=== PATIENT | male | born 1935 | race Caucasian/White ===

== ENCOUNTER 2020-08-05 01:40 | Outpatient (CLI) | payer MEDICARE, SELFPAY ==
[2020-08-05 21:22] LABS: SARS-CoV-2 RNA PCR Negative
== END 2020-08-05 01:41 | disposition home or self-care (01) ==
LOC: ANHCOVIDDT 01:40
PROVIDERS: PCP Family Medicine; Visit Provider Internal Medicine Gastroenterology
DX: Z01.812 Encounter for preprocedural laboratory examination (principal); Z20.828 Contact with and (suspected) exposure to other viral communicable diseases
CPT/HCPCS: 87635; C9803; U0003

== ENCOUNTER 2020-08-08 00:22 | Day surgery (SDC) | payer MEDICARE, SELFPAY ==
[2020-08-01 12:58] VITALS: BMI 32.5
[2020-08-08 06:19] VITALS: BP 146/78; PULSE 96; RESP 18; TEMP 36.6; O2SAT 98
[2020-08-08] MEDS: LACTATED RINGERS 1,000 ML 150 ML IV CONT (06:31)
--- NOTE | 2020-08-08 07:07 | WPDANESEPPF ---
Anes - Initial Pre Proc Eval Procedure: Operation Date: 08/08/20 07:30 Proposed Procedures p Screening Colonoscopy - Domingo Boston MD Date/Time: 08/08/20 07:07 Surgeon: Domingo Boston MD Pre Op Diagnosis: Hx Colon Polyps Patient Data Age: 85 Gender: M Height: 6 ft Weight: 111.6 kg Last Vital Signs Temp 97.9 F 08/08/20 06:19 Pulse 96 08/08/20 06:19 Resp 18 08/08/20 06:19 BP 146/78 H 08/08/20 06:19 Pulse Ox 98 08/08/20 06:19 Allergies Allergy/AdvReac Type Severity Reaction Status Date / Time Contrast Media Allergy Mild ITCHING Uncoded 08/08/20 06:17 AND RASH Home Medications Medication Instructions Recorded Confirmed Type niacin 500 mg tablet 500 mg PO 4XW 10/26/19 08/01/20 History omega-3 fatty acids 1,000 mg 1,000 mg PO DAILY 10/26/19 08/01/20 History capsule atorvastatin 10 mg tablet 10 mg PO DAILY #90 tablet 05/31/20 08/01/20 Rx lisinopril 10 See Rx Instructions .ROUTE 07/30/20 08/01/20 Rx mg-hydrochlorothiazide 12.5 mg .COMPLEX #90 tablet tablet Patient hx anesthesia problems: none Family hx anesthesia problems: none PMFSH Past Medical History Medical History (Updated 08/08/20 @ 07:07 by Robin Carreon MD) Essential (primary) hypertension History of chicken pox History of mumps Hyperlipidemia, unspecified Surgical History Surgical History (Updated 08/08/20 @ 07:07 by Robin Carreon MD) H/O endovascular stent graft for abdominal aortic aneurysm History of heart artery stent (~2014) History of left hip replacement (~2008) Family History Family History (Updated 06/12/20 @ 14:58 by Vivien West [facility]) Mother , age 59 Hypertension, Onset Age: 59 Heart disease Congestive heart failure Father , age 41 Pancreatic cancer Daughter No chronic problems Other Carcinoma of colon Family history of hypercholesterolemia Social History Social History Smoking status: Never smoker Alcohol intake: never Substance use: never Substance use type: does not use Living arrangements: alone Spiritual care concerns: No Anes - Eval Final PreProcedure Day of Procedure 08/08/20 07:07 Patient weight: obese Heart: regular rate and rhythm Lungs: clear to auscultation Airway: Mallampati scale class II Neurological: alert and oriented Last oral intake: >/= 8 hours ASA classification: III Emergent: no Anesthetic plan: proceed Anesthesia type and monitoring: general GIVS and standard monitoring Informed Consent: The patient's anesthetic plan and its attendant risks and benefits were discussed with the patient/family/POA. Questions were solicited and answers provided to the satisfaction of the patient/family/POA.
--- NOTE | 2020-08-08 08:11 | P.CONGI_ITS ---
Assessment and Plan Assessment and plan (1) History of colon polyps: Code(s): Z86.010 - Personal history of colonic polyps Status: Acute Assessment and Plan: Patient has had colon polyps on previous colonoscopies. He presents today for surveillance colonoscopy. High-fiber diet is advised. GI Consult Note Consult date/time: 08/08/20 08:11 HPI: Tom Matute is a 85 year old maleSeen in evaluation at the request of Dr. Aleks Treviño. Patient has a history of colon polyps in the past. He presents today for follow-up colonoscopy. He states his current weight appetite bowel movements are normal. He denies abdominal pain. He has had no bleeding. Bowel habits are normal. Review of Systems Review of Systems: All systems reviewed & are unremarkable except as noted in HPI and below PMFSH Past Medical History Medical History (Updated 08/08/20 @ 08:13 by Domingo Boston MD) Essential (primary) hypertension History of chicken pox History of mumps Hyperlipidemia, unspecified Surgical History Surgical History (Updated 08/08/20 @ 07:07 by Robin Carreon MD) H/O endovascular stent graft for abdominal aortic aneurysm History of heart artery stent (~2014) History of left hip replacement (~2008) Family History Family History (Updated 06/12/20 @ 14:58 by Vivien West [facility]) Mother , age 59 Hypertension, Onset Age: 59 Heart disease Congestive heart failure Father , age 41 Pancreatic cancer Daughter No chronic problems Other Carcinoma of colon Family history of hypercholesterolemia Social History Social History Smoking status: Never smoker Alcohol intake: never Substance use: never Substance use type: does not use Living arrangements: alone Spiritual care concerns: No Meds Home Medications and Allergies Home Medications Medication Instructions Recorded Confirmed Type niacin 500 mg tablet 500 mg PO 4XW 10/26/19 08/01/20 History omega-3 fatty acids 1,000 mg 1,000 mg PO DAILY 10/26/19 08/01/20 History capsule atorvastatin 10 mg tablet 10 mg PO DAILY #90 tablet 05/31/20 08/01/20 Rx lisinopril 10 See Rx Instructions .ROUTE 07/30/20 08/01/20 Rx mg-hydrochlorothiazide 12.5 mg .COMPLEX #90 tablet tablet Allergies Allergy/AdvReac Type Severity Reaction Status Date / Time Contrast Media Allergy Mild ITCHING Uncoded 08/08/20 06:17 AND RASH Vital Signs Vital Signs - 24 hr 08/08/20 06:19 Temperature 97.9 F Pulse Rate 96 Respiratory Rate 18 Blood Pressure 146/78 H Pulse Oximetry 98 Exam Narrative: Exam Narrative: Physical exam reveals patient to be alert. Vital signs stable. HEENT exam unremarkable. Lungs are clear to auscultation and percussion. Heart is without murmur or extra sounds. Abdominal exam bowel sounds are present soft nontender with no organomegaly. Digital external rectal exam is normal.
[2020-08-08 08:14] VITALS: BP 101/34; PULSE 72; RESP 20; O2SAT 95
[2020-08-08 08:24] VITALS: BP 105/41; PULSE 79; RESP 20; O2SAT 99
[2020-08-08 08:34] VITALS: BP 105/67; PULSE 80; RESP 15; O2SAT 99
== END 2020-08-08 08:50 | disposition home or self-care (01) ==
PROVIDERS: PCP Family Medicine; Visit Provider Internal Medicine Gastroenterology
PROC: 0DJD8ZZ Inspection of Lower Intestinal Tract, Via Natural or Artificial Opening Endoscopic (ICD-10-PCS; CPT 45378; principal; 2020-08-08 07:30)
DX: Z12.11 Encounter for screening for malignant neoplasm of colon (principal); D12.3 Benign neoplasm of transverse colon; K57.30 Diverticulosis of large intestine without perforation or abscess without bleeding; K64.8 Other hemorrhoids; I10 Essential (primary) hypertension; E78.5 Hyperlipidemia, unspecified; Z95.5 Presence of coronary angioplasty implant and graft; E66.9 Obesity, unspecified; Z68.33 Body mass index [BMI] 33.0-33.9, adult
CPT/HCPCS: 45385; 88305; J2704; J7120

== ENCOUNTER 2020-12-24 10:22 | Outpatient (CLI) | payer MEDICARE, SELFPAY ==
--- NOTE | ~2020-12-24 | XR_ITS ---
EXAMINATION: XR lg joint inject/asp w image DATE: 12/24/2020 11:02 INDICATION: Right hip primary osteoarthritis. TECHNIQUE: A time-out was performed to verify the patient's name, date of , and procedure to b e performed. The procedure including the risks, benefits, and alternatives was discussed with the pat ient. Risks discussed included bleeding and infection. The patient understood the risks and agreed to proceed. The skin overlying the right hip joint was prepped and draped in usual sterile fashion. A nesthetic was administered with 1% lidocaine subcutaneously. A 22 G needle was advanced under fluoro scopic guidance into the joint. Injection of 2 mL of Omnipaque 240 confirmed intra-articular positio n of the needle. Subsequently, injectate consisting of 5 mL 1% lidocaine and 2 mL 10 mg/mL Kenalog w as instilled. The needle was removed and the entry site was cleaned and dressed. There were no imme diate complications. Fluoroscopy exposure time was 0.1 minutes. The total number of images was 2. FINDINGS: Real-time fluoroscopy demonstrates the needle in the right hip joint. Patient's pain prior to procedure:02/27. Patient's pain following the procedure: 10/30. IMPRESSION: 1. Fluoroscopy guided right hip joint injection of local anesthetic and steroid with decrease in the patient's presenting pain. Reviewed, dictated and finalized at location A.
== END 2020-12-24 10:23 | disposition home or self-care (01) ==
PROVIDERS: PCP Family Medicine; Visit Provider Orthopaedic Surgery
DX: M16.11 Unilateral primary osteoarthritis, right hip (principal)
CPT/HCPCS: 20610; 77002; J3301; Q9966

== ENCOUNTER 2021-10-31 14:32 | Inpatient (IN) | payer MEDICARE, SELFPAY ==
[2021-10-31] VITALS (13 sets, daily range): BP systolic 105–137; BP diastolic 45–80; PULSE 68–160; RESP 14–26; TEMP 36.1–36.9; O2SAT 95–100; BMI 31.8
--- NOTE | ~2021-10-31 | XR_ITS ---
EXAMINATION: XR chest 1V portable EXAM DATE: 10/31/2021 15:20 INDICATION: Dizziness, tachycardia, SOB. TECHNIQUE: Portable AP frontal chest x-ray was obtained. Comparison is made to prior examination from 03/12/2015. FINDINGS: Old right 5th-8th rib fractures. The lungs are clear. There are no pleural effusions. The cardiomediastinal silhouette is within normal limits. There is no pneumothorax suspected. The bone s and soft tissues are unremarkable. IMPRESSION: No acute cardiopulmonary findings. Reviewed, dictated and finalized at location B. T INTERN
--- NOTE | ~2021-10-31 | US_ITS ---
EXAMINATION: US venous doppler [facility] DATE: 11/02/2021 10:40 INDICATION: Atrial fibrillation. Shortness of breath. Elevated d-dimer. TECHNIQUE: Grayscale ultrasound images without and with compression and Doppler ultrasound images of the bilateral lower extremity veins were obtained. COMPARISON: None. FINDINGS: The visualized portions of right common femoral vein, profunda (deep) femoral vein, femoral vein, pop liteal vein, peroneal veins, posterior tibial veins, and greater saphenous vein outflow are patent. The visualized portions of left common femoral vein, profunda femoral vein, femoral vein, popliteal v ein, peroneal veins, posterior tibial veins, and greater saphenous vein outflow are patent. IMPRESSION: 1. No deep venous thrombosis. Reviewed, dictated and finalized at location A. TER SIGN MAINTENANCE
--- NOTE | 2021-10-31 14:43 | ECG_ITS ---
Measurements Intervals [place] Rate: 146 P: VT: 0 QRS: -62 QRSD: 136 T: 11 QT: 295 QTc: 460 Interpretive Statements ATRIAL FIBRILLATION WITH RAPID VENTRICULAR RESPONSE RIGHT BUNDLE BRANCH BLOCK LEFT ANTERIOR FASCICULAR BLOCK BASELINE ARTIFACT- II, III, AVR, AVL, AVF, V1-V6 ABNORMAL ECG Electronically Signed On 10-31-2021 15:13:42 RADIATION ONCOLOGIST by Kush Calderon D.O.
--- NOTE | 2021-10-31 14:52 | ED.DIZZY ---
HPI - Dizziness General Chief Complaint: Dizziness Stated Complaint: rapid heart rate Time Seen by Provider: 10/31/21 14:43 Source: patient, family and EMS Mode of arrival: EMS Limitations: no limitations History of Present Illness HPI Narrative: Patient is 86 years old white male came to the emergency room by ambulance because of feeling weaker, dizzier with loss of balance for a while got worse over the last 7 days. Patient also complaining of shortness of breath for months and is getting worse. Patient hip replacement April 2021, prostatectomy few weeks ago. Patient lives alone. Patient is DNR. Patient denies any fever, chills, nausea, vomiting, chest pain or back pain Related Data Home Medications Medication Instructions Recorded Confirmed tamsulosin 0.4 mg capsule 0.4 mg PO QHS 06/13/21 09/01/21 Allergies Allergy/AdvReac Type Severity Reaction Status Date / Time No Known Allergies Allergy Verified 10/31/21 14:46 Review of Systems Review of Systems: CONSTITUTIONAL: Denies fever, chills, or sweats. EYES: Denies visual changes, redness, or discharge. ENT: Denies rhinorrhea, congestion, sore throat, or otalgia. CARDIOVASCULAR: Denies chest pain, palpitations, or edema. RESPIRATORY: Denies cough or dyspnea. GASTROINTESTINAL: Denies abdominal pain, nausea, vomiting, or diarrhea. GENITOURINARY: Denies dysuria or hematuria. SKIN: Denies rash or itching. MUSCULOSKELETAL: Denies back pain, joint pain, or myalgia. NEUROLOGIC: Denies headache, numbness, or weakness. PSYCHIATRIC: Denies anxiety or depression. [facility] Past Medical History Medical History Arthritis of right hip Arthritis of right knee BPH (benign prostatic hyperplasia) Essential (primary) hypertension History of chicken pox History of mumps Hyperlipidemia, unspecified Surgical History Surgical History H/O endovascular stent graft for abdominal aortic aneurysm History of heart artery stent (~2014) History of left hip replacement (~2008) S/P TURP Family History Family History Mother , age 59 Hypertension, Onset Age: 59 Heart disease Congestive heart failure Father , age 41 Pancreatic cancer Daughter No chronic problems Other Carcinoma of colon Family history of hypercholesterolemia Social History Social History Alcohol intake: never Substance use: never Substance use type: does not use Gender identity (if verbalized by the patient): Male Spiritual care concerns: No Exam Narrative: General appearance: Well-developed, well-nourished, Skin: Normal color Head: Normocephalic, nontraumatic Eyes: Clear conjunctiva ENT: Oropharynx normal, ears normal, nose normal Neck: Supple, nontender Chest and respiratory: Airway patent, no respiratory distress, no accessory muscle use Heart: Tachycardia, irregular irregularity Abdomen: Soft, nontender, no organomegaly, quiet bowel sounds Vascular: Normal peripheral pulses, normal capillary refill. Musculoskeletal: Normal range of motion, nontender back Neurologic: Alert and oriented ?3, MATERIALS DIRECTOR is normal as tested, no gross motor deficit Course Course Emergency Course: Stable, improving Vital Signs Vital signs: Vital Signs Temperature 36.7 C 10/31/21 14:37 Pulse Rate 155 H 10/31/21 14:37 Respiratory Rate 26 H 10/31/21 14:37 Blood Pressure 110/80 10/31/21 14:37 Pulse Oximetry 95 10/31/21 14:37 Temperature 36.7 C 10/31/21 14:37 Pulse Rate 104 H 10/31/21 16:
[2021-10-31] MEDS: dilTIAZem 100 MG/100 ML 100 MG/100 ML BAG IV CONT (15:06)
[2021-10-31] MEDS: dilTIAZem HCl INJ 25 MG/5 ML VIAL 10 MG IV PUSH (15:06)
[2021-10-31 15:19] LABS: Basophils Percent Auto 0.4 % (0.2-1.2); Eosinophils Absolute Auto 0.1 K/mm3 (0-0.3); Eosinophils Percent Auto 0.8 % (0-4.4); Hemoglobin 13.7 g/dL (14.0-18.0); Immature Granulocyte Absolute 0.02 K/mm3 (0.00-0.031); Immature Granulocyte Percent A 0.3 % (0-0.5); Lymphocytes Absolute Auto 1.42 K/mm3 (0.9-3.2); Lymphocytes Percent Auto 19.1 % (18.3-44.2); Mean Corpuscular HGB Conc 32.6 g/dl (32-36); Mean Corpuscular Volume 101.2 fl (80-100); Mean Platelet Volume 10.8 fl (7.4-10.4); Monocytes Absolute Auto 0.5 K/mm3 (0.1-0.6); Monocytes Percent Auto 6.5 % (2.6-8.5); Neutrophils Absolute Auto 5.4 K/mm3 (1.3-6.7); Neutrophils Percent Auto 72.9 % (45.5-73.1); Platelet Count Result 165 k/mm3 (150-375); Red Blood Count 4.15 M/mm3 (4.6-6.20); Red Cell Distribution Width 13.3 % (11.5-14.5); White Blood Count 7.4 K/mm3 (4.5-10.0)
[2021-10-31 15:27] LABS: INR 1.1; Prothrombin Time 13.7 Seconds (11.1-14.7)
[2021-10-31 15:30] LABS: Alanine Aminotransferase 10 U/L (4-50); Albumin Level 3.5 g/dL (3.5-5.1); Alkaline Phosphatase 63 U/L (38-126); Anion Gap 5 mmol/L (8-16); Aspartate Amino Transferase 19 U/L (17-59); Bilirubin,Total 0.8 mg/dL (0.2-1.3); Blood Urea Nitrogen 42 mg/dL (9-20); Carbon Dioxide 20 mmol/L (22-30); Chloride 109 mmol/L (98-107); Estimated CRCL calculation 27 ml/min; Estimated Glomerular Filt Rate 26; Glucose 115 mg/dL (65-110); Potassium 4.3 mmol/L (3.4-5.0); Sodium 134 mmol/L (137-145)
[2021-10-31 15:39] LABS: NT Pro B Type Natriuretic Pept 147 pg/mL (5-100)
[2021-10-31 15:42] LABS: Troponin I < 0.012 ng/mL (0.000-0.034)
[2021-10-31 16:22] LABS: Thyroid Stimulating Hormone 0.819 uIU/mL (0.465-4.680)
[2021-10-31] MEDS: ENOXAPARIN 120 MG/0.8 ML SYRINGE 110 MG SUB-Q (16:38)
[2021-10-31 18:46] LABS: Troponin I < 0.012 ng/mL (0.000-0.034)
[2021-10-31 21:44] LABS: Troponin I 0.015 ng/mL (0.000-0.034)
--- NOTE | 2021-10-31 21:54 | PM.IMHP ---
H&P: HPI History of Present Illness Date/Time: 10/31/21 21:00 this is an 86-year-old male patient who has a history of hypertension and hyperlipidemia. The patient has had no previous heart disease. The patient came into the emergency room via ambulance because he was feeling weaker than usual, dizziness, shortness of breath with exertion, loss of balance, and tunnel vision. The patient initially stated that he wanted to be a DNR however once I reviewed this information with him he decided that he wanted to be a full code but did not want to live in a vegetative state. The patient was found to be in new set AFib with RVR. The patient was given Cardizem push and then started on a Cardizem drip. The patient's heart rate remained above 110 tonight increased his Cardizem drip up to 10 mg from 5 mg. Shortly after this the patient converted to sinus rhythm. We decided to then turn is drip back down. His blood pressure was also on the low side. The patient stated that he typically has a hard time with his blood pressure and is typically higher than this. Patient's blood pressure is 112/45 and his heart rate is now in the 70s. Patient's BUN is 42 and creatinine 2.4. Troponins are negative x3. The patient was given subcu Lovenox in the emergency room. The patient is being admitted to inpatient services on the date of service of 10/31/2021. Chief Complaint: Weakness dizziness shortness of breath Review of Systems Review of Systems: All systems reviewed & are unremarkable except as noted in HPI and below Constitutional: Constitutional: Reports as per HPI and Reports no additional constitutional complaints Eyes: Eyes: Reports as per HPI and Reports no additional eye complaints ENT: Reports system reviewed and no additional complaints, except as documented and Reports Normal hearing present Cardiovascular: Cardiovascular: Reports no additional cardiovascular complaints Respiratory: Respiratory: Reports no additional respiratory complaints and Reports no additional respiratory complaints Gastrointestinal: Gastrointestinal: Reports as per HPI and Reports no additional gastrointestinal complaints Musculoskeletal: Musculoskeletal: Reports no additional musculoskeletal complaints Integumentary/Breasts: Skin/Breast: Reports system reviewed and no additional complaints, except as docu and Reports as per HPI Neurologic: Reports system reviewed and no additional complaints, except as documented, Reports as per HPI and Reports Normal hearing present Psychiatric: Psychiatric: Reports no additional psychiatric complaints and Reports as per HPI Endocrine: Endocrine: Reports no additional endocrine complaints Hematologic/Lymphatic: Hematologic/Lymphatic: Reports no additional hematologic/lymphatic complaints Allergic/Immunologic: Allergic/Immunologic: Reports no additional allergic/immunologic complaints [facility] Past Medical History Medical History (Updated 10/31/21 @ 22:12 by Alesha Collins NP) Arthritis of right hip Arthritis of right knee BPH (benign prostatic hyperplasia) Breast cancer screening Essential (primary) hypertension History of chicken pox History of mumps Hyperlipidemia, unspecified Surgical History Surgical History (Updated 10/31/21 @ 22:02 by Alesha Collins NP) H/O endovascular stent graft for abdominal aortic aneurysm History of cataract extraction History of left hip replacement (~2008) History of right hip replacement S/P TURP Family History Family History Mother , age 59 Hypertension, Onset Age: 59 Heart disease Congestive heart failure Father , age 41 Pancreatic cancer Daughter No chronic problems Other Carcinoma of colon Family history of hypercholesterolemia Social History Social History (Updated 10/31/21 @ 22:05 by Alesha Collins NP) Social History: The patient is a and lives home alone. He has 3 child
--- NOTE | 2021-10-31 22:09 | ECG_ITS ---
Measurements Intervals [place] Rate: 64 P: 30 OR: 236 QRS: -73 QRSD: 170 T: 10 QT: 422 QTc: 436 Interpretive Statements SINUS RHYTHM WITH FIRST DEGREE AV BLOCK RIGHT BUNDLE BRANCH BLOCK LEFT ANTERIOR FASCICULAR BLOCK ABNORMAL ECG Electronically Signed On 11-01-2021 6:36:25 RETAIL CASHIER by Kush Calderon D.O.
[2021-10-31] MEDS: METOPROLOL TARTRATE 25 MG TABLET PO (22:40)
[2021-10-31] MEDS: ATORVASTATIN 10 MG TABLET BY MOUTH (22:40)
[2021-10-31] MEDS: TAMSULOSIN HCL 0.4 MG CAPSULE PO (22:40)
[2021-11-01] VITALS (15 sets, daily range): BP systolic 101–116; BP diastolic 50–62; PULSE 52–68; RESP 16–20; TEMP 36.7–37.6; O2SAT 97–99
--- NOTE | 2021-11-01 | ECHO_ITS ---
Patient Info Name: Tom Matute Age: 86 years : 1935 Gender: Male Ht: 72 in Wt: 235 lbs BSA: 2.36 m2 HR: 64 bpm BP: 101 / 54 mmHg Heart Rhythm: Sinus Rhythm Technical Quality: Good Exam Date: 11/01/2021 8:22 AM [facility]: [facility] Patient Status: Inpatient Admit Date: 10/31/2021 Staff Ordering Physician: Alesha Collins NP Supervisor Powdered Sugar: Ann Hunter RDCS Attending Provider: Mallory Loredo MD Referring Physician: Karina AGOSTO; Exam Type: CA echo doppler color flow Study Info Indications - new onset afib Complete two-dimensional, color flow and Doppler transthoracic echocardiogram is performed. Summary 1. Complete two-dimensional, color flow and Doppler transthoracic echocardiogram is performed. 2. Normal left ventricular size and thickness. Left ventricular systolic function of the lower limit of normal, calculated ejection fraction 52%, visual ejection fraction 50-55%. Grade 1 diastolic dysfunction is present. No segmental wall motion abnormalities. 3. Moderate left atrial enlargement. 4. Trivial aortic and tricuspid insufficiency. 5. Normal estimated pulmonary pressure. 6. Normal sinus rhythm. Left Ventricle Left ventricular chamber dimension is normal. Left ventricular systolic function is normal, estimated at 50-55%. There is no increased left ventricular wall thickness. Left ventricular septal wall motion is normal. The left ventricular diastolic function is grade I diastolic dysfunction. Right Ventricle Right ventricular chamber dimension is normal. Right ventricular systolic function is normal. Left Atria Left atrial chamber dimension is moderately enlarged. Right Atria Right atrial chamber dimension is normal. Aortic Valve The aortic valve is trileaflet. There is no aortic valve sclerosis. There is no aortic valve stenosis. There is trace aortic valve regurgitation. Pulmonic Valve The pulmonic valve is normal. There is no pulmonic valve stenosis. There is no pulmonic regurgitation. Mitral Valve The mitral valve has normal leaflets. There is no mitral valve stenosis. There is no mitral valve regurgitation. Tricuspid Valve The tricuspid valve leaflets are normal. There is no significant tricuspid valve stenosis. There is trace tricuspid valve regurgitation. No pulmonary hypertension, estimated pulmonary arterial systolic pressure is 33 mmHg. Pericardium/Pleural The pericardium appears normal. There is no pericardial effusion. Inferior Vena Cava Normal inferior vena cava with >50% collapse upon inspiration consistent with Empty right atrial pressure, 10 mmHg. Aorta The aortic root size at the sinus of Valsalva is normal. The prox ascending aorta size is normal. Left Ventricular Outflow Tract Name Value Normal LVOT 2D LVOT Diameter 2.1 cm LVOT Doppler LVOT Peak Gradient 4 mmHg LVOT Mean Gradient 2 mmHg LVOT VTI 20 cm LVOT VTI/AV VTI Ratio 0.8 LVOT Stroke Vol
[2021-11-01 04:31] LABS: Basophils Percent Auto 0.3 % (0.2-1.2); Eosinophils Absolute Auto 0.1 K/mm3 (0-0.3); Eosinophils Percent Auto 1.7 % (0-4.4); Hematocrit 37.6 % (42.0-52.0); Hemoglobin 12.3 g/dL (14.0-18.0); Immature Granulocyte Absolute 0.01 K/mm3 (0.00-0.031); Immature Granulocyte Percent A 0.2 % (0-0.5); Lymphocytes Absolute Auto 1.69 K/mm3 (0.9-3.2); Lymphocytes Percent Auto 28.2 % (18.3-44.2); Mean Corpuscular HGB Conc 32.7 g/dl (32-36); Mean Corpuscular Hemoglobin 33.3 pg (26-34); Mean Corpuscular Volume 101.9 fl (80-100); Mean Platelet Volume 10.6 fl (7.4-10.4); Monocytes Absolute Auto 0.4 K/mm3 (0.1-0.6); Monocytes Percent Auto 7.3 % (2.6-8.5); Neutrophils Absolute Auto 3.7 K/mm3 (1.3-6.7); Neutrophils Percent Auto 62.3 % (45.5-73.1); Platelet Count Result 152 k/mm3 (150-375); Red Blood Count 3.69 M/mm3 (4.6-6.20); Red Cell Distribution Width 13.4 % (11.5-14.5)
[2021-11-01 05:10] LABS: Lactic Acid Reflex 0.7 mmol/L (0.7-2.1)
[2021-11-01 05:13] LABS: Anion Gap 2 mmol/L (8-16); Blood Urea Nitrogen 43 mg/dL (9-20); CRP < 0.5 mg/dL (<1.0); Calcium 9.8 mg/dL (8.4-10.2); Carbon Dioxide 26 mmol/L (22-30); Chloride 110 mmol/L (98-107); Estimated CRCL calculation 28 ml/min; Estimated Glomerular Filt Rate 27; Glucose 107 mg/dL (65-110); Magnesium 2.1 mg/dL (1.6-2.3); Sodium 138 mmol/L (137-145)
[2021-11-01 06:30] LABS: Thyroid Stimulating Hormone Reflex 0.859 uIU/mL (0.465-4.68)
[2021-11-01] MEDS: ENOXAPARIN 120 MG/0.8 ML SYRINGE 106 MG SUB-Q (06:50)
[2021-11-01] MEDS: METOPROLOL TARTRATE 25 MG TABLET PO ×2 (09:06→20:56)
--- NOTE | 2021-11-01 11:17 | PM.IMPN ---
Progress Note: A&P Assessment and Plan (1) Atrial fibrillation with rapid ventricular response: Code(s): I48.91 - Unspecified atrial fibrillation Status: Acute Assessment and Plan: 11/01 Echo 1. Complete two-dimensional, color flow and Doppler transthoracic echocardiogram is performed. 2. Normal left ventricular size and thickness. Left ventricular systolic function of the lower limit of normal, calculated ejection fraction 52%, visual ejection fraction 50-55%. Grade 1 diastolic dysfunction is present. No segmental wall motion abnormalities. 3. Moderate left atrial enlargement. 4. Trivial aortic and tricuspid insufficiency. 5. Normal estimated pulmonary pressure. 6. Normal sinus rhythm. Continue rate control (metoprolol) and anticoagulation (apixaban) Cardiology evaluation pending (2) CKD (chronic kidney disease): Qualifiers: Chronic kidney disease stage: unspecified stage Qualified Code(s): N18.9 - Chronic kidney disease, unspecified Code(s): N18.9 - Chronic kidney disease, unspecified Status: Acute Assessment and Plan: Hold ACEI and HCTZ (3) Anemia: Qualifiers: Anemia type: unspecified type Qualified Code(s): D64.9 - Anemia, unspecified Code(s): D64.9 - Anemia, unspecified Status: Acute Assessment and Plan: Chronic with worsening macrocytosis and falling platelet count The latter two are not c/w CKD, consider MDS vs marrow suppression; hemolysis unlikely Labs ordered (4) BPH (benign prostatic hyperplasia): Qualifiers: Lower urinary tract symptom presence: symptoms present Lower urinary tract symptom detail: unspecified Qualified Code(s): N40.1 - Benign prostatic hyperplasia with lower urinary tract symptoms Code(s): N40.0 - Benign prostatic hyperplasia without lower urinary tract symptoms Status: Acute Assessment and Plan: Continue tamsulosin. (5) Essential (primary) hypertension: Code(s): I10 - Essential (primary) hypertension Status: Chronic Assessment and Plan: Hold amlodipine, lisinorpil, hctz Continue metoprolol (6) Hyperlipidemia, unspecified: Qualifiers: Hyperlipidemia type: unspecified Qualified Code(s): E78.5 - Hyperlipidemia, unspecified Code(s): E78.5 - Hyperlipidemia, unspecified Status: Acute Assessment and Plan: Continue with atorvastatin Subjective Date/time seen: 11/01/21 11:17 Interval history: Admitted October 31 with palpitations weakness and presyncope. Found to be in atrial fibrillation with rapid ventricular rate. Converted to sinus rhythm overnight after rate was controlled with IV diltiazem. Transitioned oral metoprolol. In retrospect he recalls over 1 year history of intermittent palpitations with associated dyspnea on exertion and presyncope. The episodes have been becoming more frequent and more severe and more prolonged. There are now occurring weekly. Evening of October 31 was worst episode he has ever experienced. November 01 visit. Feeling good. Tolerating his diet. No chest pain or shortness of breath. No dizziness. No weakness or numbness. No GI or complaints. Ate well. No abnormal bleeding or history of bleeding ulcers or other GI bleeding. Review of Systems Review of Systems: All systems reviewed & are unremarkable except as noted in HPI and below Exam Narrative: HEENT: PERRL, sclerae nonicteric, pharyngeal mucosa pink and intact NECK: No JVD, adenopathy, or thyromegaly CHEST: Clear to auscultation. Normal effort. HEART: NL S1/S2, regular, no murmur ABDOMEN: BS+, soft, nontender, no mass, no bruits EXTREMITIES: No cyanosis, edema, or clubbing NEUROLOGIC: CN intact and symmetric to inspection. MUSCULOSKELETAL: Tone and strength symmetric. PSYCH: Alert. Oriented to person, place, and time. Objective Data Vital Signs Vital Signs: Vital Signs - 24 hr 10/31/21 14:37 0
--- NOTE | 2021-11-01 13:41 | PM.CNCAR ---
Assessment and Plan Assessment and plan (1) Paroxysmal atrial fibrillation: Code(s): I48.0 - Paroxysmal atrial fibrillation Status: Acute Assessment and Plan: Patient was admitted with AFib but has subsequently converted to sinus rhythm and maintained sinus rhythm. These symptoms were dizziness, loss of balance, blurred vision and some DEE; he did not feel any palpitations or chest discomfort. Not sure if all of his symptoms over the past 15 years are related to PAF. No obvious etiology other than aging. Will check for sleep apnea with an apnea link. LE venous doppler pending Agree with continuing metoprolol. Reviewed treatment of PAF with the patient. If his atrial fibrillation is recurrent and poorly controlled with metoprolol we may escalate therapy with increasing doses, adding Cardizem, or with perhaps the addition of an antiarrhythmic agent. Flecainide and propafenone are contraindicated in ischemic heart disease and structural heart disease (needs an OPT stress test). Sotalol can be used, but needs 3 days of inpatient therapy to monitor for proarrhythmic effects and QT prolongation. If all else fails, and he has symptomatic paroxysmal atrial fibrillation, ablation is an option. Discussed risk of stroke with the patient; will switch Lovenox to Eliquis, iff affordable (chose Eliquis because of his chronic kidney disease). Probably home tomorrow with outpatient follow-up if he has no further episodes. Outpatient 30 day monitor. (2) Essential (primary) hypertension: Code(s): I10 - Essential (primary) hypertension Status: Chronic Assessment and Plan: Well controlled. However we will switch his antihypertensive to metoprolol instead of amlodipine or lisinopril HCT. (3) Hyperlipidemia, unspecified: Code(s): E78.5 - Hyperlipidemia, unspecified Status: Acute Assessment and Plan: Takes atorvastatin. History of Present Illness History of Present Illness Consult date/time: 11/01/21 13:41 Consult reason: atrial fibrillation Reason For Visit: New onset of A fib with RVR/ CKD Narrative: Tom Matute is an 86-year-old male whom we were asked to see at the request of the hospitalist and ER physician for advice and opinion regarding new onset of atrial fibrillation. The patient has had problems with intermittent dizziness, weakness and blurred vision for many years. Sometimes this is associated with activity and sometimes a large meal. Over the past week he has felt weaker, dizzier, with more blurred vision and DEE. He came to the emergency room and was found to have AFib RVR with a heart rate of 155 beats per minute. He was given diltiazem 10 mg IV push x1 and started on a diltiazem drip. He converted to sinus rhythm. He subsequently was started on metoprolol and Lovenox. Mr. Webster has no prior history of heart disease. He does have hypertension and hyperlipidemia. No thyroid disease, no known sleep apnea, snores mildly. No history of any blood clots. No bleeding problems or ulcers. No history of stroke. Echo today showed EF 50-55%. Review of Systems Constitutional: Constitutional: Reports fatigue and Reports weakness Eyes: Eyes: Reports blurry vision ENT: Denies epistaxis Cardiovascular: Cardiovascular: Denies chest pain, Denies pedal edema, Reports lightheadedness and Denies palpitations Respiratory: Respiratory: Denies cough, Reports dyspnea and Reports dyspnea on exertion Gastrointestinal: Gastrointestinal: Denies abdominal pain, Denies hematochezia and Denies hematemesis Genitourinary: Genitourinary: Denies hematuria Musculoskeletal: Musculoskeletal: Reports arthralgias Comments: Had right total hip replacement last April Integumentary/Breasts: Skin/Breast: Denies rash Neurologic: Reports system reviewed and no additional complaints, except as documented Psychiatric: Psychiatric: Denies behavioral changes PMFSH Past Medical History Me
[2021-11-01] MEDS: TAMSULOSIN HCL 0.4 MG CAPSULE PO (20:56)
[2021-11-01] MEDS: ATORVASTATIN 10 MG TABLET BY MOUTH (20:57)
[2021-11-01] MEDS: APIXABAN 5 MG TABLET PO (20:57)
--- NOTE | 2021-11-01 21:04 | PCRCNOTE ---
Pt refusing apnea link on 11/01. Pt stated he has enough problems that he needs to resolve before starting in on apnea testing.
[2021-11-02] VITALS: PULSE 71
[2021-11-02 02:51] VITALS: O2SAT 95
[2021-11-02 04:00] VITALS: BP 116/60; PULSE 56; PULSE 60; TEMP 36.8; O2SAT 95
[2021-11-02 05:40] LABS: Hematocrit 36.7 % (42.0-52.0); Hemoglobin 11.9 g/dL (14.0-18.0); Mean Corpuscular HGB Conc 32.4 g/dl (32-36); Mean Corpuscular Hemoglobin 33.5 pg (26-34); Mean Corpuscular Volume 103.4 fl (80-100); Mean Platelet Volume 11.6 fl (7.4-10.4); Platelet Count Result 162 k/mm3 (150-375); Red Blood Count 3.55 M/mm3 (4.6-6.20); Red Cell Distribution Width 13.5 % (11.5-14.5); Reticulocytes Absolute 0.04 B/L (32.2-175.7); White Blood Count 5.9 K/mm3 (4.5-10.0)
[2021-11-02 05:48] LABS: Albumin Level 3.2 g/dL (3.5-5.1); Anion Gap 7 mmol/L (8-16); Blood Urea Nitrogen 38 mg/dL (9-20); Calcium 9.4 mg/dL (8.4-10.2); Carbon Dioxide 23 mmol/L (22-30); Chloride 107 mmol/L (98-107); Estimated CRCL calculation 32 ml/min; Estimated Glomerular Filt Rate 32; Glucose 99 mg/dL (65-110); Potassium 4.2 mmol/L (3.4-5.0); Sodium 137 mmol/L (137-145)
[2021-11-02 06:15] LABS: Iron 71 ug/dL (49-181)
[2021-11-02 06:25] LABS: Percent Iron Saturation 29 % (20-50)
[2021-11-02 06:46] LABS: Parathyroid Intact 174.3 pg/mL (7.5-53.5)
[2021-11-02 06:54] LABS: Folic Acid 6.4 ng/mL (2.76->20)
[2021-11-02 06:55] LABS: Immature Reticulocyte Fraction 6.7 % (3.0-15.9); Reticulocyte Hemoglobin Conten 37.6 pg (28.2-35.7); Reticulocyte Percent 1.22 % (0.7-4.3)
[2021-11-02 08:00] VITALS: BP 126/60; PULSE 57; PULSE 63; RESP 16; TEMP 36.7; O2SAT 96
[2021-11-02] MEDS: METOPROLOL TARTRATE 25 MG TABLET PO (08:28)
[2021-11-02] MEDS: APIXABAN 5 MG TABLET PO (08:28)
[2021-11-02 08:52] LABS: Add Urine Microscopic? YES; Appearance Urine Clear (Clear); Bacteria Urine Trace /hpf; Bilirubin Urine Negative (Negative); Blood Urine Negative (Negative); Color Urine Yellow (Yellow); Glucose Urine UA Negative (Negative); Ketones Urine Negative (Negative); Leukocyte Esterase Ur 2+ LEU/UL (Negative); Mucus Urine Rare /lpf; Nitrate Urine Negative (Negative); Protein Urine Negative (Negative); RBC Urine 0-2 /hpf (0-2); Specific Grav Ur 1.016 (1.001-1.035); Urobilinogen Urine Negative mg/dL (<2.0); WBC Urine >75 /hpf
--- NOTE | 2021-11-02 09:35 | PM.DS ---
DS: Admitting Diagnosis Discharge Date Mr. Matute was seen and examined on 11/02/2021 Admitting Diagnosis Afib with RVR DS: Discharge Diagnosis Discharge Diagnosis (1) Atrial fibrillation with rapid ventricular response: Code(s): I48.91 - Unspecified atrial fibrillation Status: Acute Assessment and Plan: Continue rate control (metoprolol) and anticoagulation (apixaban) (2) CKD (chronic kidney disease): Qualifiers: Chronic kidney disease stage: unspecified stage Qualified Code(s): N18.9 - Chronic kidney disease, unspecified Code(s): N18.9 - Chronic kidney disease, unspecified Status: Acute Assessment and Plan: Hold ACEI and HCTZ (3) Anemia: Qualifiers: Anemia type: unspecified type Qualified Code(s): D64.9 - Anemia, unspecified Code(s): D64.9 - Anemia, unspecified Status: Acute Assessment and Plan: Chronic with worsening macrocytosis and falling platelet count The latter two are not c/w CKD, consider MDS vs marrow suppression; hemolysis unlikely (4) BPH (benign prostatic hyperplasia): Qualifiers: Lower urinary tract symptom detail: unspecified Lower urinary tract symptom presence: symptoms present Qualified Code(s): N40.1 - Benign prostatic hyperplasia with lower urinary tract symptoms Code(s): N40.0 - Benign prostatic hyperplasia without lower urinary tract symptoms Status: Acute Assessment and Plan: Continue tamsulosin. (5) Essential (primary) hypertension: Code(s): I10 - Essential (primary) hypertension Status: Chronic Assessment and Plan: Hold amlodipine, lisinorpil, hctz Continue metoprolol (6) Hyperlipidemia, unspecified: Qualifiers: Hyperlipidemia type: unspecified Qualified Code(s): E78.5 - Hyperlipidemia, unspecified Code(s): E78.5 - Hyperlipidemia, unspecified Status: Acute Assessment and Plan: Continue with atorvastatin DS: Summary Hospital Course Reason for hospitalization: palpitations and presyncope Hospital Course: Admitted with palpitations, weakness, and presyncope. EMS brought to ED. IV diltiazem slowed rate and he spontaneously converted to NSR. He was transitioned to oral metoprolol and Eliquis w/o recurrent afib and had no bleeding. Creatinine was above his usal baseline at 2.4 but had improved to 2.0, near his baseline, by discharge. BP and HR were well controlled on metoprolol alone. He tolerated his diet and wished to go home. 11/01 Echo 1. Complete two-dimensional, color flow and Doppler transthoracic echocardiogram is performed. 2. Normal left ventricular size and thickness. Left ventricular systolic function of the lower limit of normal, calculated ejection fraction 52%, visual ejection fraction 50-55%. Grade 1 diastolic dysfunction is present. No segmental wall motion abnormalities. 3. Moderate left atrial enlargement. 4. Trivial aortic and tricuspid insufficiency. 5. Normal estimated pulmonary pressure. 6. Normal sinus rhythm. Hgb was 11.9 and platelets 162, both trending down from outpatient labs. Iron studies were c/w anemia of CKD. Folic acid was NL. B12 was borderline at 297. F/u MMA is pending as outpatient. 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 Cardiology wished to f/u as outpatient with office visit and monitor. Consider outpatient nephrology referral due to CKD stage 3a with secondary hyperparathyroidism. Status at Discharge Functional status at discharge: uses cane/walker Overall status at discharge: patient is back to baseline Time Spent with Patient Time attestation: Total time spent providing and/or coordinating discharge services: Time spent: Greater than 30 minutes Exam Narrative: HEENT: PERRL, sclerae nonicteric, pharyngeal mucosa pink and intact NECK: No JVD, adenopathy, or thyromegaly CHEST: Clear to auscultation. Normal effort. HEART:
== END 2021-11-02 11:39 | disposition home or self-care (01) | DRG 309 ==
LOC: ANHED 16:22 → ANHIMU 11-01 06:42
PROVIDERS: Nurse Practitioner; Admitting Provider Hospitalist; Emergency Provider Emergency Medicine; PCP Family Medicine; Visit Provider Internal Medicine
DX: I48.0 Paroxysmal atrial fibrillation (principal); N25.81 Secondary hyperparathyroidism of renal origin; D64.9 Anemia, unspecified; I12.9 Hypertensive chronic kidney disease with stage 1 through stage 4 chronic kidney disease, or unspecified chronic kidney disease; N18.31 Chronic kidney disease, stage 3a; N40.0 Benign prostatic hyperplasia without lower urinary tract symptoms; E78.5 Hyperlipidemia, unspecified; Z79.899 Other long term (current) drug therapy; Z95.5 Presence of coronary angioplasty implant and graft; Z96.643 Presence of artificial hip joint, bilateral
CPT/HCPCS: 36415; 71045; 80048; 80053; 80069; 81001; 82607; 82746; 83540; 83550; 83605; 83735; 83880; 83970; 84443; 84484; 85025; 85027; 85046; 85380; 85610; 85730; 86140; 87077; 87086; 87186; 93005; 93306; 93970; 96365; 99285; A9270; J1650

== ENCOUNTER 2022-01-01 15:00 | Outpatient (CLI) | payer MEDICARE, SELFPAY ==
--- NOTE | ~2022-01-01 | US_ITS ---
US renal BI DATE: 01/01/2022 17:23 INDICATION: Chronic kidney disease stage IIIB TECHNIQUE: Real-time imaging of the kidneys and urinary bladder COMPARISON: 04/07/2016 CTA abdomen pelvis FINDINGS: There are multiple bilateral cysts, measuring up to 13 cm on the right, 6.4 cm on the left. The right kidney measures approximately 13.7 cm length, left kidney approximately 10.9 cm length. There is increased echogenicity and thinning of the renal parenchyma consistent with chronic renal me dical disease. No evidence of hydronephrosis of either kidney. The urinary bladder is unremarkable. IMPRESSION: Bilateral renal atrophy and chronic medical disease Bilateral renal cysts No hydronephrosis is detected Reviewed, dictated and finalized at [facility]. Reviewed, dictated and finalized at [facility].
== END 2022-01-01 15:01 | disposition home or self-care (01) ==
LOC: ANHIMG 15:01
PROVIDERS: PCP Family Medicine; Visit Provider Internal Medicine Nephrology
DX: N18.32 Chronic kidney disease, stage 3b (principal); N26.1 Atrophy of kidney (terminal); N28.1 Cyst of kidney, acquired
CPT/HCPCS: 76775

== ENCOUNTER 2022-07-09 11:00 | Outpatient (RCR) | payer MEDICARE, SELFPAY ==
--- NOTE | 2022-06-11 10:09 | PTOPEVAL1 ---
Assessment and note entered by Gregorio Acuna, PT, DPT Evaluation Information Assessment Status Evaluation Diagnosis Instability of joint Subjective Information Pt states he has a R CRISSY 1 year ago in April. He states he has not troubles with the hip, he just wishes his legs were a little stronger. Pt states he walks in the pool 2-3 times a week. He states he would like to be able to walk with more ease, to be safer with stairs, and increase his mobility . He reports good balance Reported Pain Level Pain Score 0: Self Report Assessment PT Clinical Summary Tom is a 87 y/o male who presents to therapy today with a diagnosis of instability of limb. Today he reports increased LE weakness since his R CRISSY last year. He reports no limitations with his hip, just generalized weakness. Today he demonstrates poor hip strength against gravity jose and decreased plantarflexion strength. He demonstrates minor gait deviations demonstrated by trunk flexion, decreased heel strike, and decreased strike length. He demonstrates increased time to complete the TUG and 5xSTS placing him at an increased risk for falls. Skilled physical therapy services are indicated to address the deficits noted above, to improve strength, to improve safety, and to promote unlimited functional mobility. Plan of Care Interventions Gait Training,Neuro Re-education,Patient/Caregiver Educati,Therapeutic Activities,Therapeutic Exercise PT Services Indicated Yes Treatment Frequency and 2x/wk for 4 wks Duration These treatments will address the objective and functional deficits as defined above. The patient will be advanced safely and appropriately in order for the patient to progress towards his/her prior level of function. Additional exercises will be introduced and as well as a comprehensive home exercise program upon discharge, if needed, ?to ensure carryover of functional gains achieved in the clinic. This treatment plan has been reviewed and agreement upon by the patient.
--- NOTE | 2022-07-09 11:42 | PTOPDC ---
Assessment and note entered by Gregorio Acuna, PT, DPT Evaluation Information Assessment Status Discharge Diagnosis Instability of joint Subjective Information Pt states he feels like he has gotten a little stronger since starting therapy. He states he has been still walking in the pool 2 days a week. Reported Pain Level Pain Score 0: Self Report Assessment PT Clinical Summary Tom presents to therapy today for his progress report following 7 visits of skilled therapy and his participation in a home exercise program. Today he demonstrates improves in his BLE strength globally. He is now able to hold the hip abduction test position and can tolerate small resistance on the L. He demonstrates an improved gait speed but continues to have forward flexion with this. He continues to not be able to perform a single sit <> stand without UE support. Pt states he is confidence and proficient with his HEP and plans to continue this both in and out of the pool at the local fitness center. He is to be discharged from skilled therapy services at this time with instructions to follow up with his referring provider if needed. Plan of Care PT Services Indicated No Treatment Frequency and to be discharged Duration
== END 2022-07-15 16:21 | disposition home or self-care (01) ==
LOC: ANHGOSHPT 11:00
PROVIDERS: PCP Family Medicine
DX: M25.30 Other instability, unspecified joint (principal)
CPT/HCPCS: 97110; 97112; 97161; 97530

== ENCOUNTER 2022-11-27 12:47 | Outpatient (CLI) | payer MEDICARE, SELFPAY ==
[2022-11-27 19:26] LABS: Basophils Percent Auto 0.3 % (0.2-1.2); Eosinophils Absolute Auto 0.1 K/mm3 (0-0.3); Eosinophils Percent Auto 1.2 % (0-4.4); Hematocrit 40.1 % (42.0-52.0); Hemoglobin 13.4 g/dL (14.0-18.0); Immature Granulocyte Absolute 0.02 K/mm3 (0.00-0.031); Immature Granulocyte Percent A 0.2 % (0-0.5); Lymphocytes Absolute Auto 2.49 K/mm3 (0.9-3.2); Lymphocytes Percent Auto 27.3 % (18.3-44.2); Mean Corpuscular HGB Conc 33.4 g/dl (32-36); Mean Corpuscular Hemoglobin 33.2 pg (26-34); Mean Corpuscular Volume 99.3 fl (80-100); Mean Platelet Volume 10.5 fl (7.4-10.4); Monocytes Absolute Auto 0.7 K/mm3 (0.1-0.6); Monocytes Percent Auto 7.3 % (2.6-8.5); Neutrophils Absolute Auto 5.8 K/mm3 (1.3-6.7); Neutrophils Percent Auto 63.7 % (45.5-73.1); Platelet Count Result 212 k/mm3 (150-375); Red Blood Count 4.04 M/mm3 (4.6-6.20); Red Cell Distribution Width 13.2 % (11.5-14.5); White Blood Count 9.1 K/mm3 (4.5-10.0)
[2022-11-27 19:31] LABS: Alanine Aminotransferase 18 U/L (6-50); Albumin Level 3.8 g/dL (3.5-5.1); Alkaline Phosphatase 58 U/L (38-126); Anion Gap 5 mmol/L (8-16); Aspartate Amino Transferase 29 U/L (17-59); Bilirubin,Total 0.7 mg/dL (0.2-1.3); Blood Urea Nitrogen 31 mg/dL (9-20); Calcium 10.4 mg/dL (8.4-10.2); Carbon Dioxide 29 mmol/L (22-30); Chloride 102 mmol/L (98-107); Estimated Glomerular Filt Rate 32; Glucose 118 mg/dL (65-110); Potassium 4.2 mmol/L (3.4-5.0); Sodium 136 mmol/L (137-145)
== END 2022-11-27 12:48 | disposition home or self-care (01) ==
LOC: ANHGOSHLAB 12:49
PROVIDERS: PCP Family Medicine; Visit Provider Family Medicine
DX: I95.1 Orthostatic hypotension (principal)
CPT/HCPCS: 36415; 80053; 85025

== ENCOUNTER 2023-06-03 13:15 | Outpatient (RCR) | payer MEDICARE, SELFPAY ==
--- NOTE | 2023-05-14 14:29 | OPREHPOC ---
Outpatient Therapy Plan of Care This is a Multidisciplinary Plan of Care that may contain components documented by all disciplines (PT, OT, and ST.) PT Problem 1 PT Problem #1 Knowledge Deficit PT Goal 1 Goal Pt to be IND with issued HEP Target Visit 8 PT Problem 2 PT Problem #2 Impaired Strength PT Goal 1 Goal Pt to improve hip flexion strength to 4+/5 jose Target Visit 8 PT Goal 2 Goal Pt to improve his hip abduction strength to 3+/5 Target Visit 8 PT Problem 3 PT Problem #3 Impaired Gait PT Goal 1 Goal Pt to improve his 2 min walk distance from 275ft to 325ft. Target Visit 8 PT Goal 2 Goal Pt to report compliance with walking program Target Visit 8 PT Problem 4 PT Problem #4 Impaired Balance PT Goal 1 Goal Pt to improve Tinetti score from 18/28 to 23/28. Target Visit 8 PT Goal 2 Goal Pt to improve his 5xSTS time from 24s to 18s. Target Visit 8
--- NOTE | 2023-05-14 14:29 | PTOPEVAL1 ---
Assessment and note entered by Gregorio Acuna, PT, DPT Evaluation Information Assessment Status Evaluation Diagnosis ataxia, repeated falls Subjective Information Pt states 2 years ago he had his R hip replaced. He states since then his legs have been weaker and he feels off balance. He reports also having decreased endurance. He uses the cane but more for confidence vs support. He reports multiple recent falls but none since December. 4-5 falls in the last 2 years. He lives alone and still does his own shopping. Reported Pain Level Pain Score 0: Self Report Assessment PT Clinical Summary Tom presented today for his physical therapy initial evaluation with a diagnosis of ataxia and repeated falls. Today he demonstrates decreased LE strength specifically in his hips L>R, decreased gait speed, and per standardized tests is at an increased risk for falls. Skilled therapy services are indicated to address the deficits noted above, to improve strength, and to improve functional mobility. Plan of Care Interventions Gait Training,Hot Pack/Cold Pack,Manual Therapy, Mechanical Traction,Neuro Re-education,Patient/ Caregiver Educati,Therapeutic Activities, Therapeutic Exercise PT Services Indicated Yes Treatment Frequency and 2x/wk for 8 visits Duration These treatments will address the objective and functional deficits as defined above. The patient will be advanced safely and appropriately in order for the patient to progress towards his/her prior level of function. Additional exercises will be introduced and as well as a comprehensive home exercise program upon discharge, if needed, ?to ensure carryover of functional gains achieved in the clinic. This treatment plan has been reviewed and agreement upon by the patient.
--- NOTE | 2023-06-07 08:14 | PCPTNOTE ---
Patient called & cancelled scheduled appointment this week due to falling at home. He states he is in a lot of pain and doesn't think he will be up to coming to therapy. The appointments cancelled including his last scheduled visit.
--- NOTE | 2023-06-08 16:41 | PCPTNOTE ---
Patient canceled due to recent fall.
--- NOTE | 2023-07-21 11:42 | PTOPDC ---
Assessment and note entered by Gregorio Acuna, PT, DPT Evaluation Information Assessment Status Discharge - Pt Not Present Diagnosis ataxia, repeated falls Subjective Information Called pt to follow, its been about 6 weeks since his fall. Pt states he has been doing his exercises at home and using the walker 100% of the time as he is fearful of falling. Pt states he would not like to continue with therapy at this time. Assessment PT Clinical Summary Tom completed 7 visits of skilled therapy from to 06/08/23. He will be discharged at this time per pt request.
== END 2023-07-21 13:23 | disposition home or self-care (01) ==
LOC: ANHGOSHPT 13:15
PROVIDERS: PCP Family Medicine; Visit Provider Family Medicine
DX: R27.0 Ataxia, unspecified (principal); R29.6 Repeated falls
CPT/HCPCS: 97110; 97112; 97161; 97530

== ENCOUNTER 2023-06-05 16:17 | Emergency (ER) | payer MEDICARE, SELFPAY ==
--- NOTE | ~2023-06-05 | XR_ITS ---
EXAMINATION: XR hip RT min 2V DATE: 06/05/2023 16:48 INDICATION: Right hip pain post fall TECHNIQUE: Anteroposterior and frog-leg lateral views of the right hip were obtained. COMPARISON: 12/11/2020 FINDINGS: Interval placement of a right total hip arthroplasty which appears well seated in near-anatomic align ment. Partially visualized acetabular component of a left total hip arthroplasty. No fracture. 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 Aortobiiliac endoluminal stent. Subcutaneous st randing lateral to the greater trochanter of the proximal right femur most likely representing a post traumatic contusion. IMPRESSION: 1. No acute osseous abnormality. Reviewed, dictated and finalized at location [facility].
[2023-06-05 16:30] VITALS: BP 87/84; PULSE 83; RESP 16; TEMP 36.7; O2SAT 100
--- NOTE | 2023-06-05 16:32 | ED.EXTPRO ---
HPI - Extremity Problem General Chief complaint: Extremity Injury, Lower Stated complaint: Sore on right hip Time Seen by Provider: 06/05/23 16:32 Source: patient Mode of arrival: ambulatory Limitations: no limitations History of Present Illness HPI Narrative: 88-year-old male presents with complaint of pain to right hip and right buttock. Patient reports that he fell 3 days ago while in his garage. States that he was coming in from getting the mail and walked up the ramp to go into his house and he fell down. Fell onto right hip. Denies hitting head. No LOC. States that he crawled into his house into his bedroom and he lifted him self by pushing off of bed and dresser. Family member drove down from [place] today to help bring him to Urgent Care due to continued right hip pain. Patient has history of right hip replacement. Wants to make sure that he does not have fracture. Patient does have family in the area that are normally here to help them but both are out of town on vacation at this time. Patient does have a Life Alert button but did not want to push it. All systems reviewed and negative except as noted above. Related Data Home Medications Medication Instructions Recorded Confirmed tamsulosin 0.4 mg capsule 0.4 mg PO QHS 06/13/21 06/05/23 lisinopril 10 1 tablet PO DAILY 06/05/23 06/05/23 mg-hydrochlorothiazide 12.5 mg tablet Allergies Allergy/AdvReac Type Severity Reaction Status Date / Time iodine Allergy Mild Rash Unverified 06/05/23 16:27 Review of Systems Review of Systems: CONSTITUTIONAL: Denies fever, chills, or sweats. EYES: Denies visual changes, redness, or discharge. ENT: Denies rhinorrhea, congestion, sore throat, or otalgia. CARDIOVASCULAR: Denies chest pain, palpitations, or edema. RESPIRATORY: Denies cough or dyspnea. GASTROINTESTINAL: Denies abdominal pain, nausea, vomiting, or diarrhea. GENITOURINARY: Denies dysuria or hematuria. SKIN: Denies rash or itching. MUSCULOSKELETAL: Denies back pain, myalgia. Reports right hip pain. NEUROLOGIC: Denies headache, numbness, or weakness. PSYCHIATRIC: Denies anxiety or depression. All other systems reviewed are negative, except as documented in HPI. [facility] Past Medical History Medical History Arthritis of right hip Arthritis of right knee BPH (benign prostatic hyperplasia) Breast cancer screening Essential (primary) hypertension History of chicken pox History of mumps Hyperlipidemia, unspecified Hyperparathyroidism, secondary renal Paroxysmal atrial fibrillation Surgical History Surgical History H/O endovascular stent graft for abdominal aortic aneurysm History of cataract extraction History of left hip replacement (~2008) History of right hip replacement 2020 S/P TURP Family History Family History Mother , age 59 Hypertension, Onset Age: 59 Heart disease Congestive heart failure Father , age 41 Pancreatic cancer Daughter No chronic problems Other Carcinoma of colon Family history of hypercholesterolemia Social History Social History Social History: The patient is a and lives home alone. He has 3 children. 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 The patient smoked from [id number] while he was in the . The patient does not use any alcohol marijuana or illicit drugs. The patient's children or his durable power immigration attorney for healthcare. Code status full code Smoking packs per day: 0.25 Smoking cigarettes per day: 5.0 Years smoked: 5 Smoking pack-years: 1.25 Smoking status: Former smoker Alcohol intake: never Substance use: never Substance use type: does not use Lack of Transportation: No Lack of Food: Never True Current Jesi
== END 2023-06-05 17:36 | disposition home or self-care (01) ==
PROVIDERS: Emergency Provider Nurse Practitioner Family; PCP Family Medicine
DX: S70.01XA Contusion of right hip, initial encounter (principal); W19.XXXA Unspecified fall, initial encounter; Z87.891 Personal history of nicotine dependence; N40.0 Benign prostatic hyperplasia without lower urinary tract symptoms; I10 Essential (primary) hypertension; E78.5 Hyperlipidemia, unspecified; N25.81 Secondary hyperparathyroidism of renal origin; I48.91 Unspecified atrial fibrillation; M16.11 Unilateral primary osteoarthritis, right hip; M17.11 Unilateral primary osteoarthritis, right knee; Z96.642 Presence of left artificial hip joint; Z96.651 Presence of right artificial knee joint
CPT/HCPCS: 73502; 99213; G0463

== ENCOUNTER 2023-12-27 09:45 | Outpatient (CLI) | payer MEDICARE, SELFPAY ==
--- NOTE | ~2023-12-27 | MR_ITS ---
EXAMINATION: MR brain IAC wo con DATE: 12/27/2023 10:56 INDICATION: Ataxia. TECHNIQUE: Magnetic resonance imaging (MRI) of the brain, brainstem, and internal auditory canals was performed without intravenous contrast. COMPARISON: None. FINDINGS: There are scattered areas of nonspecific increased T2-weighted signal intensity in the cere bral white matter, which is within normal limits for the patient's age. There is no intracranial hemo rrhage, acute infarction, or abnormal intracranial mass lesion. The ventricles are normal in size. Th ere is mild mucosal thickening in the paranasal sinuses. There are likely changes of ocular lens repl acement surgeries. The internal auditory canals and inner ears and tympanic cavities are normal. Ther e are trace bilateral mastoid effusions. IMPRESSION: 1. Normal aging brain. Reviewed, dictated and finalized at location [facility]. IMPRESSION: 1. Normal aging brain.
== END 2023-12-27 09:46 ==
LOC: GOSHIMG 09:46
PROVIDERS: PCP Family Medicine; Visit Provider Family Medicine
DX: R27.0 Ataxia, unspecified (principal)
CPT/HCPCS: 70551

== ENCOUNTER 2024-04-22 14:40 | Emergency (ER) | payer MEDICARE, SELFPAY ==
[2024-04-22] VITALS (7 sets, daily range): BP systolic 157–193; BP diastolic 85–158; PULSE 112–140; RESP 18–24; TEMP 36.9–37.5; O2SAT 95–100
--- NOTE | ~2024-04-22 | CT_ITS ---
EXAMINATION: CT chest abdomen pelvis w con DATE: 04/22/2024 16:04 INDICATION: Fall. TECHNIQUE: Computed tomography (CT) of the chest, abdomen and pelvis was performed with 100 CC Omnipa que 350 intravenous contrast. Automated exposure control and iterative reconstruction technique were employed. Exam dose: 1910.88 mGy-cm total exam DLP. COMPARISON: 04/07/2016 CTA abdomen pelvis FINDINGS: There is a small right and minimal left pleural effusion. There is mild predominantly depen dent upper and more prominent lower lobe atelectasis, right greater than left. Normal size and homogeneous enhancement of the thyroid gland. Heart size is within normal range. Thoracic aortic calcification without aneurysm or dissection. Prominent coronary artery calcification s. Mitral valve prominent calcification is suggested. No pericardial effusion. Occasional small left with of the gastric wall. Normal morphology of the adrenal glands. Multiple bilateral renal cysts are noted including large exophytic cyst measuring up to 9 cm on the r ight, 6.2 cm on the left. No urinary tract calculus or hydroureteronephrosis is detected. There is a Saeed catheter within the urinary bladder with complete complete evacuation of bladder. Bl adder wall appears diffusely thickened but this may be due to underdistention versus possible bladder outlet obstruction due to the prostatomegaly. The prostate and lower pelvic area is partially obscur ed by extensive streak artifact from bilateral total hip arthroplasty. Bilateral fat-containing inguinal hernias. Diverticulosis of the colon; no CT evidence of diverticulitis. No evidence of appendicitis. Infrarenal saccular abdominal aortic aneurysm measuring up to approximately 5.9 cm AP, transverse sag ittal dimension, with aortobiiliac vascular stent. No intraperitoneal or retroperitoneal or pelvic ma ss lesion or adenopathy or ascites. Old healed right rib fractures. Diffuse idiopathic skeletal hyperostosis of the thoracic spine. There is widening anteriorly at the T11 interspace, consistent with ligamentous extension injury of u ncertain age, but not present on 04/07/2016 CT abdomen examination Mild to moderate anterior wedging of L1, consistent with compression fracture, appears chronic, but a lso not present on 04/07/2016. Grade 1 anterolisthesis at L4-5 due to degenerative change at the apophyseal joints. Severe degenerative disc disease at L5-S1. IMPRESSION: Small right and minimal left pleural effusion, mild atelectasis in the dependent upper a nd to a greater extent lower lobes, right greater than left Multiple bilateral renal cysts 12 mm and smaller left hepatic cysts Diverticulosis of the colon; no evidence of diverticulitis 5.9 cm infrarenal abdominal aortic aneurysm with aortobiiliac stent Ligamentous extension injury at T10-11 Moderate anterior wedge compression fracture deformity of L1 Reviewed, dictated and finalized at [facility]. Reviewed, dictated and finalized at location J. IMPRESSION: Small right and minimal left pleural effusion, mild atelectasis in the dependent upper and to a greater extent lower lobes, right greater than le ft Multiple bilateral renal cysts 12 mm and smaller left hepatic cysts Diverticulosis of the colon; no evidence of diverticulitis 5.9 cm infrarenal abdominal aortic aneurysm with aortobiiliac stent Ligamentous extension injury at T10-11 Moderate anterior wedge compression fracture deformity of L1
--- NOTE | ~2024-04-22 | XR_ITS ---
XR wrist LT min 3V DATE: 04/22/2024 16:35 INDICATION: Trauma TECHNIQUE: 3 views COMPARISON: None FINDINGS: There is osteopenia. There is severe osteoarthritic change at the first carpometacarpal joint with severe joint space and very prominent periarticular spurring. No fracture or dislocation, periosteal reaction or bone destruction, erosive change or chondrocalcino sis is detected. IMPRESSION: No fracture or dislocation is detected Severe osteoarthritis of first carpometacarpal joint Osteopenia Reviewed, dictated and finalized at location J.
--- NOTE | ~2024-04-22 | XR_ITS ---
XR hip BI 2V w AP pelvis DATE: 04/22/2024 16:35 INDICATION: Trauma TECHNIQUE: AP pelvis. AP and lateral views of each hip. COMPARISON: None FINDINGS: Aortobiiliac vascular stent. Saeed catheter is present in the urinary bladder with contrast material within the partially complete ly evacuated bladder. Osteopenia. No pelvic fracture or bone destruction is detected. Services bilateral total hip arthroplasty. No fracture or dislocation of either hip is detected. IMPRESSION: Status post bilateral total hip arthroplasty No pelvic fracture or fracture or dislocation of either hip Reviewed, dictated and finalized at location J.
--- NOTE | ~2024-04-22 | CT_ITS ---
EXAMINATION: CT cervical spine wo con DATE: 04/22/2024 16:04 INDICATION: Fall. Altered mental state. TECHNIQUE: Computed tomography (CT) of the cervical spine was performed without intravenous contrast. Automated exposure control and iterative reconstruction technique were employed. Exam dose: 549.92 mGy-cm total exam DLP. COMPARISON: None FINDINGS: Normal alignment at the atlantoaxial joints. C1 and C2 are normally aligned and the odontoi d process is intact. No fracture or dislocation or locked facet or prevertebral soft tissue swelling. There is moderately severe degenerative disc disease as well as uncovertebral joint spurring at C5-6 and C6-7. There is slight anterolisthesis at T1-T2 3.. IMPRESSION: Moderate cervical spondylosis; no fracture or dislocation or locked facet Reviewed, dictated and finalized at [facility]. Reviewed, dictated and finalized at location J. IMPRESSION: Moderate cervical spondylosis; no fracture or dislocation or michelet d facet
--- NOTE | ~2024-04-22 | XR_ITS ---
XR hand RT min 3V DATE: 04/22/2024 16:35 INDICATION: Trauma TECHNIQUE: 3 views COMPARISON: None FINDINGS: Osteopenia. There is prominent osteoarthritic change at the triscaphe and first carpometacarpal joint as well as first metacarpophalangeal joint and to a lesser extent second metacarpophalangeal joint and multiple interphalangeal joints. No recent fracture or dislocation is evident. No periosteal reaction or bone destruction. No erosive change or chondrocalcinosis. IMPRESSION: Polyarticular osteoarthritis Osteopenia No recent fracture or dislocation is evident Reviewed, dictated and finalized at location J.
--- NOTE | ~2024-04-22 | CT_ITS ---
EXAMINATION: CT brain wo con DATE: 04/22/2024 16:04 INDICATION: Trauma from fall. Altered mental state. TECHNIQUE: Computed tomography (CT) of the head was performed without intravenous contrast. The mA wa s adjusted according to patient size. Iterative reconstruction technique was employed. Exam dose: 68 1.00 mGy-cm total exam DLP. COMPARISON: 12/27/2023 MRI brain FINDINGS: Bilateral vertebral artery and basilar artery and bilateral carotid siphon internal carotid artery calcifications. Small chronic lacunar infarct in the region of the anterior limb of the right internal capsule. There is nonspecific diminished attenuation of the cerebral white matter, likely due to chronic small vess el ischemic changes. There are central and cortical cerebral atrophy. No subdural or epidural hematoma is detected. The included paranasal sinuses and mastoid air cells are well developed and aerated with the exceptio n of some soft tissue thickening of the ethmoid air cells and minimal mucoperiosteal thickening of th e maxillary sinuses. No fracture or bone destruction of the cranial vault. IMPRESSION: Cerebral atherosclerosis and chronic small vessel ischemic changes of the cerebral white matter Small chronic lacunar infarct is suggested at the region of the anterior limb of the right internal c apsule Cerebral atrophy No acute intracranial finding Reviewed, dictated and finalized at [facility]. Reviewed, dictated and finalized at location J. IMPRESSION: Cerebral atherosclerosis and chronic small vessel ischemic changes of the cerebral white matter Small chronic lacunar infarct is suggested at the region of the anterior limb o f the right internal capsule Cerebral atrophy No acute intracranial finding
--- NOTE | 2024-04-22 14:48 | ECG_ITS ---
Test Date: 2024-04-22 14:58:45 Measurements Intervals [place] Rate: 140 P: 0 [place]: 0 QRS: -69 QRSD: 150 T: 72 QT: 341 QTc: 522 Interpretive Statements ATRIAL FIBRILLATION WITH RAPID VENTRICULAR RESPONSE RIGHT BUNDLE BRANCH BLOCK LEFT ANTERIOR SUPERIOR HEMIBLOCK ABNORMAL ECG No previous ECG available for comparison Electronically Signed On 04-23-2024 08:54:04 CDT by Aleks Roy M.D.
[2024-04-22] MEDS: SODIUM CHLORIDE 0.9% IV 2,000 ML 999 ML IV CONT (15:03)
[2024-04-22 15:09] LABS: Alveolar/Arterial O2 Gradient 37.9 mmHg; Base Excess ABG -0.2 mEq/l (+/-2.0); Fractional Inspired Oxygen 21 %; HCO3 ABG 21.8 mEq/l (22.0-26.0); Oxygen Content ABG 16.4 %vol (16.0-22.0); Oxygen Saturation ABG 96.8 % (95.0-100.0); Oxyhemoglobin 95.5 % THb (90.0-100.0); PCO2 ABG 27.9 mmHg (35.0-45.0); PO2 ABG 78.4 mmHg (80.0-100.0); PO2 FiO2 Ratio Arterial Blood 3.73 %; Total Hemoglobin 12.2 g/dL (12.0-18.0)
[2024-04-22 15:11] LABS: Device ROOM AIR; Modified Allen's Test Pass; Site Drawn RIGHT RADIAL; pH ABG 7.511 (7.350-7.450)
--- NOTE | 2024-04-22 15:12 | PC.NURSE ---
Patient is A&Ox3-4 at this time, but seems off like he doesnt understand what is going on. Patient also complains of pain to the left hip when his leg is raised. patient has bruising to all extremities.
[2024-04-22 15:35] LABS: Hematocrit 32.8 % (42.0-52.0); Hemoglobin 11.1 g/dL (14.0-18.0); Mean Corpuscular HGB Conc 33.8 g/dl (32-36); Mean Corpuscular Hemoglobin 33.5 pg (26-34); Mean Corpuscular Volume 99.1 fl (80-100); Mean Platelet Volume 11.1 fl (7.4-10.4); Platelet Count Result 177 k/mm3 (150-375); Red Blood Count 3.31 M/mm3 (4.6-6.20); Red Cell Distribution Width 13.5 % (11.5-14.5); White Blood Count 16.6 K/mm3 (4.5-10.0)
[2024-04-22] MEDS: LORazepam INJ (*CRX) 2 MG/ML VIAL 0.5 MG IV PUSH (15:41)
[2024-04-22 15:44] LABS: Acetaminophen < 10 ug/mL (10-30); Ethanol < 10 mg/dL (<10); Lactic Acid Reflex 3.2 mmol/L (0.7-2.0); Salicylate < 1.0 mg/dL (2-20)
[2024-04-22 15:45] LABS: INR 1.3; Partial Thromboplastin Time 31.3 Seconds (22.3-36.8); Prothrombin Time 17.1 Seconds (11.1-14.7)
[2024-04-22 15:49] LABS: Alanine Aminotransferase 56 U/L (6-50); Albumin Level 3.5 g/dL (3.5-5.1); Alkaline Phosphatase 50 U/L (38-126); Anion Gap 8 mmol/L (4-12); Aspartate Amino Transferase 335 U/L (17-59); Bilirubin,Total 2.1 mg/dL (0.2-1.3); Blood Urea Nitrogen 28 mg/dL (9-20); Calcium 10.3 mg/dL (8.4-10.2); Carbon Dioxide 26 mmol/L (22-30); Chloride 102 mmol/L (98-107); Estimated CRCL calculation 32 ml/min; Estimated Glomerular Filt Rate 34; Glucose 147 mg/dL (65-110); Potassium 3.6 mmol/L (3.4-5.0); Sodium 136 mmol/L (137-145)
[2024-04-22 15:56] LABS: Add Urine Microscopic? YES; Appearance Urine Cloudy (Clear); Bacteria Urine None Seen /hpf; Bilirubin Urine Negative (Negative); Blood Urine 3+ (Negative); Color Urine Dark Yellow (Yellow); Glucose Urine UA Trace mg/dL (Negative); Hyaline Casts Urine Present /lpf; Ketones Urine Trace mg/dL (Negative); Leukocyte Esterase Ur Negative LEU/UL (Negative); Nitrate Urine Negative (Negative); Protein Urine 2+ mg/dL (Negative); Specific Grav Ur 1.019 (1.001-1.035); Squamous Epithelial Cell Urine Occasional /hpf (Few); WBC Urine 0-5 /hpf (0-3); pH Urine 5.5 (5.0-9.0)
[2024-04-22 16:00] LABS: Amphetamine Screen Urine Negative (Negative); Barbiturate Screen Urine Negative (Negative); Benzodiazepines Screen Urine Negative (Negative); Cannabinoid Screen Urine Negative (Negative); Cocaine Screen Urine Negative (Negative); Methadone Screen Urine Negative (Negative); Opiate Screen Urine Negative (Negative); Phencyclidine Screen Urine Negative (Negative)
[2024-04-22 16:03] LABS: Band Neutrophils Percent 1 % (0-6); Lymphocytes Absolute Manual 0.16 K/mm3 (1.1-4.5); Monocytes Absolute Manual 0.83 K/mm3 (0.1-0.90); Monocytes Percent Manual 5 % (3-9); Neutrophils Percent Manual 93 % (46-73); Platelet Estimate Adequate (Adequate); Total Cells Counted 100
[2024-04-22 16:04] LABS: Schistocytes None Seen
[2024-04-22 16:21] LABS: Creatine Kinase 13820 U/L (55-170); Troponin I 0.372 ng/mL (0.000-0.034)
--- NOTE | 2024-04-22 16:37 | PC.NURSE ---
Patient has had a change in mental status. patient is no longer answering questions. patient will attempt to speak, but his words are not making sense. Provider made aware of this change
--- NOTE | 2024-04-22 17:02 | ED.GENADULT ---
HPI - General Adult General Chief complaint: Unspecified Stated complaint: found on floor Time Seen by Provider: 04/22/24 14:42 History of Present Illness HPI narrative: Patient is an 89-year-old male who presents ER after being found on the ground. The lastly no he was well was yesterday when he sent a text message at 11:30 a.m.. It appears he took his morning medication but not his evening medication or today's medication. Patient was found naked on the floor next to his table. He is intermittently oriented. He cannot report any pain. He does have a skin tear to left wrist. He has bruising to all extremities and to the right ear. It appears patient takes Eliquis from his chart review. Related Data Home Medications Medication Instructions Recorded Confirmed metoprolol tartrate 25 mg tablet mg PO 12/01/23 04/04/24 Allergies Allergy/AdvReac Type Severity Reaction Status Date / Time iodine Allergy Mild Rash Verified 04/22/24 15:41 Review of Systems Review of Systems: ROS unobtainable: Yes unobtainable due to medical condition PMFSH Past Medical History Medical History Arthritis of right hip Arthritis of right knee BPH (benign prostatic hyperplasia) Breast cancer screening Essential (primary) hypertension History of chicken pox History of mumps Hyperlipidemia, unspecified Hyperparathyroidism, secondary renal Paroxysmal atrial fibrillation Surgical History Surgical History H/O endovascular stent graft for abdominal aortic aneurysm History of cataract extraction History of left hip replacement (~2008) History of right hip replacement 2020 S/P TURP Family History Family History Mother , age 59 Hypertension, Onset Age: 59 Heart disease Congestive heart failure Father , age 41 Pancreatic cancer Daughter No chronic problems Other Carcinoma of colon Family history of hypercholesterolemia Social History Social History Social History: The patient is a and lives home alone. He has 3 children. 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 The patient smoked from [id number] while he was in the . The patient does not use any alcohol marijuana or illicit drugs. 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 Code status full code Smoking packs per day: 0.25 Smoking cigarettes per day: 5.0 Years smoked: 5 Smoking pack-years: 1.25 Smoking status: Former smoker Alcohol intake: never Substance use: never Substance use type: does not use Do You Feel Safe in your Home?: Yes Lack of Transportation: No Lack of Food: Never True Current Housing: I Have Housing Concerned About Future Housing: No Difficulty Paying Gas/Electric Bills: No Difficulty Paying for Meds: No Currently Unemployed: No Education: Bachelor's Degree Difficulty w/ Childcare or Family Care: No Living arrangements: alone Occupation/Education: retired Gender identity (if verbalized by the patient): Male Spiritual care concerns: No Exam Narrative: GENERAL: Ill-appearing, well-nourished, and in moderate distress. HEAD: Normocephalic, atraumatic. EYES: PERRL and EOMI. ENT: Mucous membranes moist. Contusion the right ear without fluctuant hematoma. NECK: Supple. C-spine immobilized CHEST: Clear to auscultation. No respiratory distress. HEART: Tachycardic with an irregular regular rate and rhythm. Normal peripheral pulses. ABDOMEN: Soft, nontender, nondistended. EXTREMITIES: Upper extremity contusions most notably in the right hand at thumb. Range of motion intact passively. No deformity. SKIN: Warm, dry blood over the entirety of the body, large skin tear left wrist for his walks would have been. NEURO: Al
[2024-04-22] MEDS: dilTIAZem HCl INJ 25 MG/5 ML VIAL 10 MG IV PUSH (17:16)
--- NOTE | 2024-04-22 17:46 | PC.NURSE ---
approx 725mL of dark yellow urine from patient's bianchi bag
[2024-04-22 17:56] LABS: Influenza A QL RT-PCR Negative (Negative); Influenza B QL RT-PCR Negative (Negative); RSV RNA, RT-PCR Negative (Negative); SARS-CoV-2 RNA PCR Negative (Negative)
--- NOTE | 2024-04-22 17:56 | ECG_ITS ---
Test Date: 2024-04-22 18:02:07 Measurements Intervals [place] Rate: 128 P: 0 FL: 0 QRS: -67 QRSD: 149 T: 60 QT: 337 QTc: 492 Interpretive Statements ATRIAL FIBRILLATION WITH RAPID VENTRICULAR RESPONSE RIGHT BUNDLE BRANCH BLOCK LEFT ANTERIOR SUPERIOR HEMIBLOCK ABNORMAL ECG Compared to ECG 04/22/2024 14:58:45 NO DIFFERENCE Electronically Signed On 04-23-2024 09:00:42 CDT by Aleks Roy M.D.
[2024-04-22] MEDS: dilTIAZem 100 MG/100 ML 100 MG/100 ML BAG IV CONT (18:20)
[2024-04-22] MEDS: SODIUM CHLORIDE 0.9% IV 1,000 ML 150 ML IV CONT (18:20)
--- NOTE | 2024-04-22 18:21 | PC.NURSE ---
Spoke with TIMA Garcia at [facility] for report ER to ER transfer. Ambulance called for transport and ETA is [id number].
[2024-04-22 18:35] LABS: Reflex Lactic Acid Yes or No Add Lactic
== END 2024-04-22 19:15 | disposition short-term general hospital (02) ==
PROVIDERS: Emergency Provider Emergency Medicine; PCP Family Medicine
DX: S23.3XXA Sprain of ligaments of thoracic spine, initial encounter (principal); M62.82 Rhabdomyolysis; R41.82 Altered mental status, unspecified; R79.89 Other specified abnormal findings of blood chemistry; I48.0 Paroxysmal atrial fibrillation; I10 Essential (primary) hypertension; N25.81 Secondary hyperparathyroidism of renal origin; E78.5 Hyperlipidemia, unspecified; N40.0 Benign prostatic hyperplasia without lower urinary tract symptoms; M17.11 Unilateral primary osteoarthritis, right knee; M16.11 Unilateral primary osteoarthritis, right hip; Z96.643 Presence of artificial hip joint, bilateral; Z98.49 Cataract extraction status, unspecified eye; Z79.01 Long term (current) use of anticoagulants; Z79.899 Other long term (current) drug therapy; M19.041 Primary osteoarthritis, right hand; M18.9 Osteoarthritis of first carpometacarpal joint, unspecified; M19.032 Primary osteoarthritis, left wrist; M85.89 Other specified disorders of bone density and structure, multiple sites; I45.2 Bifascicular block; N28.1 Cyst of kidney, acquired; K57.90 Diverticulosis of intestine, part unspecified, without perforation or abscess without bleeding; I71.43 Infrarenal abdominal aortic aneurysm, without rupture; M47.812 Spondylosis without myelopathy or radiculopathy, cervical region; I67.2 Cerebral atherosclerosis; W19.XXXA Unspecified fall, initial encounter
CPT/HCPCS: 36415; 36600; 70450; 71260; 72125; 73110; 73130; 73521; 74177; 80053; 80307; 81001; 82550; 82805; 83605; 84484; 85025; 85610; 85730; 87040; 87637; 93005; 96361; 96365; 96375; 96376; 99285; J2060; J7030; L0140; Q9967

== ENCOUNTER 2024-08-10 20:16 | Emergency (ER) | payer MEDICARE, SELFPAY ==
[2024-08-10 20:37] VITALS: BP 111/78; PULSE 75; RESP 18; TEMP 36.6; O2SAT 97
[2024-08-10 22:59] VITALS: BP 153/76; PULSE 63; RESP 17; O2SAT 98
--- NOTE | 2024-08-11 00:41 | ED_ITS ---
HPI - Extremity Injury (Lower) General Chief Complaint: Extremity Injury, Lower Stated Complaint: left foot injury Time Seen by Provider: 08/10/24 23:58 History of Present Illness HPI Narrative: Patient is an 89-year-old male who presents ER with need for a splint. Patient had a fall 9 days ago at his retirement. They noticed that the 2nd digit of his left foot was bruised so they performed an x-ray today. Findings showed avulsion fractures of the medial cuneiform and avulsion fracture of the navicular bone. Patient has no pain at this time. No numbness or tingling. He is wearing compression stockings due to chronic edema. Related Data Home Medications Medication Instructions Recorded Confirmed metoprolol tartrate 25 mg tablet mg PO 12/01/23 04/04/24 Allergies Allergy/AdvReac Type Severity Reaction Status Date / Time iodine Allergy Mild Rash Verified 08/10/24 23:00 Review of Systems Constitutional: Constitutional: Reports no additional constitutional complaints Musculoskeletal: Musculoskeletal: Reports no additional musculoskeletal complaints Integumentary/Breasts: Skin/Breast: Reports system reviewed and no additional complaints, except as docu Neurologic: Reports system reviewed and no additional complaints, except as documented [facility] Past Medical History Medical History Arthritis of right hip Arthritis of right knee BPH (benign prostatic hyperplasia) Breast cancer screening Essential (primary) hypertension History of chicken pox History of mumps Hyperlipidemia, unspecified Hyperparathyroidism, secondary renal Paroxysmal atrial fibrillation Surgical History Surgical History H/O endovascular stent graft for abdominal aortic aneurysm History of cataract extraction History of left hip replacement (~2008) History of right hip replacement 2020 S/P TURP Family History Family History Mother , age 59 Hypertension, Onset Age: 59 Heart disease Congestive heart failure Father , age 41 Pancreatic cancer Daughter No chronic problems Other Carcinoma of colon Family history of hypercholesterolemia Social History Social History Social History: The patient is a and lives home alone. He has 3 children. 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 The patient smoked from [id number] while he was in the . The patient does not use any alcohol marijuana or illicit drugs. 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 Code status full code Smoking packs per day: 0.25 Smoking cigarettes per day: 5.0 Years smoked: 5 Smoking pack-years: 1.25 Smoking status: Former smoker Alcohol intake: never Substance use: never Substance use type: does not use Do You Feel Safe in your Home?: Yes Lack of Transportation: No Lack of Food: Never True Current Housing: I Have Housing Concerned About Future Housing: No Difficulty Paying Gas/Electric Bills: No Difficulty Paying for Meds: No Currently Unemployed: No Education: Bachelor's Degree Difficulty w/ Childcare or Family Care: No Living arrangements: alone Occupation/Education: retired Gender identity (if verbalized by the patient): Male Spiritual care concerns: No Exam Narrative: GENERAL: Well-appearing, well-nourished, and in no acute distress. HEAD: Normocephalic, atraumatic. EXTREMITIES: Normal range of motion. 2+ edema. Bruising 2nd digit of the tleft foot. SKIN: Warm, dry, no rash. NEURO: Alert and oriented x3. PSYCH: Normal mood and affect. Course Course Emergency Course: Family/patient do not wish to have repeat XR. Short-leg posterior splint applied by refrigerator repair technician. Will refer to Orthopedic surgery. May benefit from walking boot. Patient uses a walker. Discharge. Vital Signs Vital signs: Vital Signs Temperature 97.9 F 08/10/24 20:37 Pulse Rate 75 08/10/24 20:37 Respiratory Rate 18 08/10/24 20:37 Blood Pressure 111/78 08/10/24 20:37 Pulse Oximetry 97 08/10/24 20:37 Temperature 97.9 F 08/10/24 20:37 Pulse Rate 63 08/10/24 22:59 Respiratory Rate 17 08/10/24 22:59 Blood Pressure 153/76 H 08/10/24 22:59 Pulse Oximetry 98 08/10/24 22:59 Discharge Plan Discharge Clinical Impression: Foot fracture, left Patient Disposition: Home, Self-Care Condition: Stable Instructions: Antibiotic Form, Foot Fracture in Adults (ED), Splint Care (ED) Additional Instructions: Follow-up with Orthopedic surgery. They will determine whether you need a walking boot. Return the ER if you suffered a new injury. Prescriptions: No Action metoprolol tartrate 25 mg tablet PO tamsulosin 0.4 mg capsule 0.4 mg PO QHS Qty: 90 3RF Eliquis 5 mg Tablet 5 mg PO Q12HR Qty: 60 0RF atorvastatin 10 mg tablet See Rx Instructions .ROUTE .COMPLEX Qty: 100 1RF Dose Instruction: TAKE 1 TABLET BY MOUTH DAILY Rx Instructions: TAKE 1 TABLET BY MOUTH HS lisinopril 5 mg tablet 5 mg PO DAILY Qty: 90 1RF Follow-up/Referrals: Alkes Treviño MD [Primary Care Provider] - Arcadio Azar MD [Physician] - 1 Week
== END 2024-08-11 01:30 ==
PROVIDERS: Emergency Provider Emergency Medicine; PCP Family Medicine
DX: S92.242A Displaced fracture of medial cuneiform of left foot, initial encounter for closed fracture (principal); S92.252A Displaced fracture of navicular [scaphoid] of left foot, initial encounter for closed fracture; I48.0 Paroxysmal atrial fibrillation; I10 Essential (primary) hypertension; N40.0 Benign prostatic hyperplasia without lower urinary tract symptoms; N25.81 Secondary hyperparathyroidism of renal origin; E78.5 Hyperlipidemia, unspecified; M16.11 Unilateral primary osteoarthritis, right hip; M17.11 Unilateral primary osteoarthritis, right knee; Z98.49 Cataract extraction status, unspecified eye; Z96.643 Presence of artificial hip joint, bilateral; Z87.891 Personal history of nicotine dependence; Z79.01 Long term (current) use of anticoagulants; Z79.899 Other long term (current) drug therapy; W19.XXXA Unspecified fall, initial encounter
CPT/HCPCS: 29515; 99282

== ENCOUNTER 2024-09-22 10:31 | Emergency (ER) | payer MEDICARE, SELFPAY ==
[2024-09-22] VITALS (11 sets, daily range): BP systolic 117–170; BP diastolic 48–69; PULSE 56–66; RESP 12–111; TEMP 36.4–36.6; O2SAT 97–100
--- NOTE | ~2024-09-22 | CT_ITS ---
EXAMINATION: CT brain wo con DATE: 09/22/2024 11:01 INDICATION: Transient altered mental status. TECHNIQUE: Computed tomography (CT) of the head was performed without intravenous contrast. Sagittal and coronal reconstructions were performed. The mA was adjusted according to patient size. Iterative reconstruction technique was employed. The dose-length product was 681.00 mGy-cm. COMPARISON: head CT dated 04/22/24 FINDINGS: No acute intracranial hemorrhage, acute infarction or abnormal extra axial fluid collection. Small ol d lacunar infarct at the anterior limb of the right basal ganglia. There is mild scattered white sveta er hypoattenuation consistent with chronic small vessel ischemic disease. Symmetric prominence of the sulci consistent with mild to moderate age-appropriate diffuse cerebral volume loss. Ventricles are normal and symmetric. No mass/mass effect. Changes of bilateral intraocular lens replacement. The orb its, paranasal sinuses and mastoid air cells are normal. IMPRESSION: 1. 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 No acute intracrania l process. 2. Age-related changes including mild to moderate diffuse volume loss and mild scattered white matter hypoattenuation consistent with chronic small vessel ischemic disease. Reviewed, dictated and finalized at location B. 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 No acute intracranial process. 2. Age-related changes including mild to moderate diffuse volume loss and mild scattered white matter hypoattenuation consistent with chronic small vessel isc hemic disease.
--- NOTE | ~2024-09-22 | XR_ITS ---
EXAMINATION: XR chest 1V DATE: 09/22/2024 11:12 INDICATION: Transient altered mental status. TECHNIQUE: frontal view of the chest was obtained. COMPARISON: chest CT dated 04/22/2024 FINDINGS: Calcified nodules in the left lower lung zone consistent with old granulomatous disease. Lungs are ot herwise clear with no focal airspace opacities, pulmonary edema, pleural effusion or pneumothorax. Th e cardiomediastinal silhouette is normal. Multiple old healed right-sided rib fractures. IMPRESSION: 1. No acute cardiopulmonary disease. Reviewed, dictated and finalized at location B. 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
--- NOTE | 2024-09-22 10:41 | ECG_ITS ---
Test Date: 2024-09-22 16:44:52 Measurements Intervals [place] Rate: 63 P: 50 [place]: 253 QRS: -21 QRSD: 129 T: 63 QT: 407 QTc: 420 Interpretive Statements SINUS RHYTHM WITH FIRST DEGREE AV BLOCK WITH OCCASIONAL VENTRICULAR PREMATURE COMPLEXES BORDERLINE LEFT AXIS DEVIATION [QRS AXIS < -20] MODERATE INTRAVENTRICULAR CONDUCTION DELAY [110+ ms QRS DURATION] NONSPECIFIC T-WAVE ABNORMALITY Compared to ECG 04/22/2024 18:02:07 Atrial fibrillation no longer present Electronically Signed On 09-26-2024 17:45:57 SUPERVISOR AIR CONDITIONING INSTALLER by Cam Montez M.D.
--- NOTE | 2024-09-22 10:42 | ED.RECABL ---
HPI - Recheck/Abnormal Lab/Rx General Chief Complaint: Recheck/Abnormal Lab/Rx <Paris Jones PA-C - Last Filed: 09/22/24 10:43> Stated Complaint: low bp? <Paris Jones PA-C - Last Filed: 09/22/24 10:43> Time Seen by Provider: 09/22/24 16:34 <Paris Jones PA-C - Last Filed: 09/22/24 10:43> Focused HPI: 89-year-old male presents to the ED via EMS from local half-way for an episode of transient AMS. Patient states he was eating breakfast in the dining rahman and felt fine. States NC knew he was in his room but does not recall how he got to his room. He does not believe he lost consciousness. Daughter at bedside states she was contacted and told that the patient had low blood pressure and confusion was sent to the ED for this. Upon arrival to ED patient states he feels fine and has no complaints. Denies headache, vision changes, focal numbness or weakness, chest pain or shortness of breath, dysuria or hematuria, cough or congestion, fever. He is in his normal state of health and is A&O x4. GENERAL: Well-appearing, well-nourished, and in no acute distress. HEAD: Normocephalic, atraumatic. CHEST: Clear to auscultation. ?No respiratory distress. HEART: Regular rate and rhythm.? NEURO: ?Alert and oriented x3. Cranial nerves 2-12 intact. Strength 5/5 in BUE and BLE. Sensation intact throughout. Patient screened in triage and initial orders placed.? ?Additional care and disposition to be based upon?diagnostic testing and treatment. <Paris Jones PA-C - Last Filed: 09/22/24 10:43> History of Present Illness HPI narrative: Agree with the above with the following additions/corrections: Patient was supposed to have PT after breakfast. On Elliquis for Afib. Also on metoprolol . Reportedly hypotensive but not given a value. Daughter was told by staff that the left side of his face was asymmetric but EMS did not appreciate this on their arrival. They were called for stroke like symptoms. Has lower extremity edema but neither he nor daughters have ever been told an etiology. Denies knowledge of heart failure. Patient states he was otherwise asymptomatic other than having a period where he doesn't remember anything, estimated to have lasted approximately approximately 10 minutes. No headache, chest pain, abdominla pain or shortness of breath. This happened before approximately 1 year ago but denies a diagnosis of TIA or CVA. <Leighann Snowden MD - Last Filed: 09/24/24 14:53> Related Data Home Medications: Home Medications ?Medication ?Instructions ?Recorded ?Confirmed ?Last Taken ?Type metoprolol tartrate 25 mg tablet mg PO 12/01/23 08/21/24 Unknown History <Prais Jones PA-C - Last Filed: 09/22/24 10:43> Allergies/Adverse Reactions: Allergies Allergy/AdvReac Type Severity Reaction Status Date / Time iodine Allergy Mild Rash Verified 08/21/24 12:56 <Paris Jones PA-C - Last Filed: 09/22/24 10:43> [facility] Past Medical History Medical History: Medical History Chronic kidney disease, stage 3a Hypertensive chronic kidney disease Hyperparathyroidism, secondary renal Paroxysmal atrial fibrillation BPH (benign prostatic hyperplasia) Breast cancer screening Arthritis of right knee Arthritis of right hip History of chicken pox History of mumps Essential (primary) hypertension Hyperlipidemia, unspecified <Paris Jones PA-C - Last Filed: 09/22/24 10:43> Surgical History Surgical History: Surgical History History of cataract extraction History of right hip replacement 2020 S/P TURP History of left hip replacement (~2008) H/O endovascular stent graft for abdominal aortic aneurysm <IFEANYI Jefferson Last Filed: 09/22/24 10:43> Family History Family History: Family History Mother , age 59 Hypertension, Onset Age: 59 Heart disease Congestive heart failure Father , age 41 Pancreatic cancer Daughter No chronic problems Other Carcinoma of colon Family history of hypercholesterolemia <Paris Jones PA-C - Last Filed: 09/22/24 10:43> Social History Social History: Social History (Updated 09/24/24 @ 14:44 by Leighann Snowden MD) Social History: The patient is a and lives home alone. He has 3 children. 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 The patient smoked from [id number] while he was in the . The patient does not use any alcohol marijuana or illicit drugs. The patient's children or his durable power workers compensation attorney for healthcare. Code status full code Smoking packs per day: 0.25 Smoking cigarettes per day: 5.0 Years smoked: 5 Smoking pack-years: 1.25 Smoking status: Former smoker Alcohol intake: never Substance use: never Substance use type: does not use Current Housing: Decline to Answer Concerned About Future Housing: Decline to Answer Difficulty Paying Gas/Electric Bills: Decline to Answer Difficulty Paying for Meds: Decline to Answer Currently Unemployed: Decline to Answer Education: Decline to Answer Difficulty w/ Childcare or Family Care: Decline to Answer Living arrangements: alone Additional living arrangements comments: [place] Occupation/Education: retired Gender identity (if verbalized by the patient): Male Spiritual care concerns: No <Paris Jones PA-C - Last Filed: 09/22/24 10:43> Exam Narrative: GENERAL: Well-appearing, well-nourished, and in no acute distress. HEAD: Normocephalic, atraumatic. EYES: Non injected, non icteric ENT: Nares clear, no rhinorrhea or epistaxis. NECK: Supple. CHEST: Speaking in full sentences. No respiratory distress. HEART: Regular rate and rhythm. Occasionally bradycardic but mild . ABDOMEN: Soft, nondistended. EXTREMITIES: Normal range of motion. 3+ bilateral lower extremity edema. SKIN: Warm, dry, no rash. NEURO: No focal deficits. Alert and oriented x3. Speaks clearly without aphasia or dysarthria. No abnormal movements appreciated. PSYCH: Normal mood and affect. <Leighann Snowden MD - Last Filed: 09/24/24 14:53> Course Vital Signs Vital signs: Vital Signs Temperature 97.6 F 09/22/24 10:37 Pulse Rate 56 L 09/22/24 10:37 Respiratory Rate 16 09/22/24 10:37 Blood Pressure 117/48 L 09/22/24 10:37 Pulse Oximetry 100 09/22/24 10:37 Temperature 97.6 F 09/22/24 16:39 Pulse Rate 66 09/22/24 18:15 Respiratory Rate 17 09/22/24 18:15 Blood Pressure 170/58 H 09/22/24 18:02 Pulse Oximetry 97 09/22/24 18:15 <Paris Jones PA-C - Last Filed: 09/22/24 10:43> Vital Signs Temperature 97.6 F 09/22/24 10:37 Pulse Rate 56 L 09/22/24 10:37 Respiratory Rate 16 09/22/24 10:37 Blood Pressure 117/48 L 09/22/24 10:37 Pulse Oximetry 100 09/22/24 10:37 Temperature 97.6 F 09/22/24 16:39 Pulse Rate 66 09/22/24 18:15 Respiratory Rate 17 09/22/24 18:15 Blood Pressure 170/58 H 09/22/24 18:02 Pulse Oximetry 97 09/22/24 18:15 <Leighann Snowden MD - Last Filed: 09/24/24 14:53> MDM - Recheck/Abnormal Lab/Rx MDM Narrative Medical decision making narrative: EMS was called for stroke like symptoms and altered mental status as well as hypotension. Patient does note that there was approximately a 10 minute period that he does not recall but returned to baseline without deficit. Reportedly hypotensive but unclear what the value was as EMS had reported normal/near normal vital signs. Staff told daughter facial droop on the left but EMS did not appreciate this on their exam. In the emergency department he is afebrile with vital signs notable for mild bradycardia. His blood pressure is also slightly low, particularly the diastolic however the mean arterial pressure is 71 and the repeat blood pressure is improved.. Unable to perform CTA of brain given allergy to iodine as per protocol. Hypoalbuminemia, hyponatremia, and chronic kidney disease (creatinine remains stable from baseline). Discussed with patient and daughters the uncertainty of what this episode represented and the results of his work up here. If this did represent a TIA, ABCD2 Risk Score Age greater than or equal to 60: 1 SBP greater than or equal to140 or greater than or equal to DBP >90: No No unilateral weakness or speach disturbance; other symptoms: thus 0 TIA duration 10-59 min: 1 Diabetes: 0 Total Score 2 points. Per the validation study, 0-3 points is low risk and confers a 2-day stroke risk of 1.0% and a 7-day stroke risk of 1.2% and a 90-day stroke risk of 3.1%. Discussed the option of being admitted as obvservation for further workup including TIA/CVA work up but patient and daughters feel comfortable with him returning to facility and working with patient's PCP/facility emergency medical technician Trevin in regards to exploring this further or not. Patient already has an MRI scheduled for tomorrow for his spine. <Leighann Snowden MD - Last Filed: 09/24/24 14:53> Differential Diagnosis Differential diagnosis: Likely other (TIA/CVA; syncope; seizure; infection; electrolyte abnormality; arrhythmia; hypoglycemia; electrolyte abnormalities ) <Leighann Snowden MD - Last Filed: 09/24/24 14:53> Lab Data Attestation: I reviewed the patient's lab results. <Leighann Snowden MD - Last Filed: 09/24/24 14:53> Result diagrams: 09/22/24 12:39 09/22/24 12:39 <Paris Jones PA-C - Last Filed: 09/22/24 10:43> Labs: Lab Results 09/22/24 09/22/24 Range/Units 12:39 16:54 WBC 8.7 (4.5-10.0) K/mm3 RBC 2.80 L (4.6-6.20) M/mm3 Hgb 9.5 L (14.0-18.0) g/dL Hct 28.8 L (42.0-52.0) % MCV 102.9 H (80-100) fl MCH 33.9 (26-34) pg MCHC 33.0 (32-36) g/dl RDW 14.5 (11.5-14.5) % Plt Count 212 (150-375) k/mm3 MPV 10.2 (7.4-10.4) fl Immature Gran % (Auto) 0.5 (0-0.5) % Neut % (Auto) 70.8 (45.5-73.1) % Lymph % (Auto) 19.1 (18.3-44.2) % Bulloch % (Auto) 8.6 H (2.6-8.5) % Eos % (Auto) 0.7 (0-4.4) % Baso % (Auto) 0.3 (0.2-1.2) % Lymph # (Auto) 1.65 (0.9-3.2) K/mm3 Bulloch # (Auto) 0.7 H (0.1-0.6) K/mm3 Eos # (Auto) 0.1 (0-0.3) K/mm3 Baso # (Auto) 0.0 (0.0-0.1) K/mm3 Abs Immat Gran (auto) 0.04 H (0.00-0.031) K/mm3 Absolute Neuts (auto) 6.1 (1.3-6.7) K/mm3 Absolute Nucleated RBC 0.000 (0.0-0.012) K/mm3 Nucleated RBC % 0.0 (0.0-0.2) % PT 15.1 H (11.1-14.7) Seconds INR 1.1 APTT 32.4 (22.3-36.8) Seconds Sodium 132 L (137-145) mmol/L Potassium 4.5 (3.4-5.0) mmol/L Chloride 104 (98-107) mmol/L Carbon Dioxide 32 H (22-30) mmol/L Anion Gap -4 L (4-12) mmol/L BUN 29 H (9-20) mg/dL Creatinine 1.70 H (0.7-1.3) mg/dL Estim Creat Clear Calc Not Reportable Estimated GFR 38 L (59 - ) Glucose 106 (65-110) mg/dL Calcium 10.0 (8.4-10.2) mg/dL Total Bilirubin 1.4 H (0.2-1.3) mg/dL AST 15 L (17-59) U/L ALT 10 (6-50) U/L Alkaline Phosphatase 70 (38-126) U/L Total Creatine Kinase < 20 L (55-170) U/L Troponin I < 0.012 (0.000-0.034) ng/mL Total Protein 6.0 L (6.3-8.2) g/dL Albumin 3.1 L (3.5-5.1) g/dL TSH 1.220 (0.465-4.680) uIU/mL Urine Color Yellow (Yellow) Urine Appearance Clear (Clear) Urine pH 5.5 (5.0-9.0) Ur Specific Cuthbert 1.013 (1.001-1.035) Urine Protein Negative (Negative) mg/dL Urine Glucose (UA) Negative (Negative) mg/dL Urine Ketones Negative (Negative) mg/dL Ur Blood (Man) Negative (Negative) Urine Nitrate Negative (Negative) Urine Bilirubin Negative (Negative) Urine Urobilinogen 0.2 (<2.0) mg/dL Leukocyte Esterase Rfl Negative (Negative) SORAYA/UL <Paris Jones PA-C - Last Filed: 09/22/24 10:43> Lab Results 09/22/24 09/22/24 Range/Units 12:39 16:54 WBC 8.7 (4.5-10.0) K/mm3 RBC 2.80 L (4.6-6.20) M/mm3 Hgb 9.5 L (14.0-18.0) g/dL Hct 28.8 L (42.0-52.0) % MCV 102.9 H (80-100) fl MCH 33.9 (26-34) pg MCHC 33.0 (32-36) g/dl RDW 14.5 (11.5-14.5) % Plt Count 212 (150-375) k/mm3 MPV 10.2 (7.4-10.4) fl Immature Gran % (Auto) 0.5 (0-0.5) % Neut % (Auto) 70.8 (45.5-73.1) % Lymph % (Auto) 19.1 (18.3-44.2) % Bulloch % (Auto) 8.6 H (2.6-8.5) % Eos % (Auto) 0.7 (0-4.4) % Baso % (Auto) 0.3 (0.2-1.2) % Lymph # (Auto) 1.65 (0.9-3.2) K/mm3 Bulloch # (Auto) 0.7 H (0.1-0.6) K/mm3 Eos # (Auto) 0.1 (0-0.3) K/mm3 Baso # (Auto) 0.0 (0.0-0.1) K/mm3 Abs Immat Gran (auto) 0.04 H (0.00-0.031) K/mm3 Absolute Neuts (auto) 6.1 (1.3-6.7) K/mm3 Absolute Nucleated RBC 0.000 (0.0-0.012) K/mm3 Nucleated RBC % 0.0 (0.0-0.2) % PT 15.1 H (11.1-14.7) Seconds INR 1.1 APTT 32.4 (22.3-36.8) Seconds Sodium 132 L (137-145) mmol/L Potassium 4.5 (3.4-5.0) mmol/L Chloride 104 (98-107) mmol/L Carbon Dioxide 32 H (22-30) mmol/L Anion Gap -4 L (4-12) mmol/L BUN 29 H (9-20) mg/dL Creatinine 1.70 H (0.7-1.3) mg/dL Estim Creat Clear Calc Not Reportable Estimated GFR 38 L (59 - ) Glucose 106 (65-110) mg/dL Calcium 10.0 (8.4-10.2) mg/dL Total Bilirubin 1.4 H (0.2-1.3) mg/dL AST 15 L (17-59) U/L ALT 10 (6-50) U/L Alkaline Phosphatase 70 (38-126) U/L Total Creatine Kinase < 20 L (55-170) U/L Troponin I < 0.012 (0.000-0.034) ng/mL Total Protein 6.0 L (6.3-8.2) g/dL Albumin 3.1 L (3.5-5.1) g/dL TSH 1.220 (0.465-4.680) uIU/mL Urine Color Yellow (Yellow) Urine Appearance Clear (Clear) Urine pH 5.5 (5.0-9.0) Ur Specific Cuthbert 1.013 (1.001-1.035) Urine Protein Negative (Negative) mg/dL Urine Glucose (UA) Negative (Negative) mg/dL Urine Ketones Negative (Negative) mg/dL Ur Blood (Man) Negative (Negative) Urine Nitrate Negative (Negative) Urine Bilirubin Negative (Negative) Urine Urobilinogen 0.2 (<2.0) mg/dL Leukocyte Esterase Rfl Negative (Negative) SORAYA/UL <Leighann Snowden MD - Last Filed: 09/24/24 14:53> Imaging Data Radiologist's impression: IMPRESSION: 1. No acute cardiopulmonary disease. IMPRESSION: 1. 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 No acute intracranial process. 2. Age-related changes including mild to moderate diffuse volume loss and mild scattered white matter hypoattenuation consistent with chronic small vessel ischemic disease. <Leighann Snowden MD - Last Filed: 09/24/24 14:53> ECG Data EKG #1: Attestation: I personally reviewed and interpreted this ECG as follows: <Leighann Snowden MD - Last Filed: 09/24/24 14:53> ECG completion date: 09/22/24 <Leighann Snowden MD - Last Filed: 09/24/24 14:53> ECG completion time: 16:44 <Leighann Snowden MD - Last Filed: 09/24/24 14:53> Interpretation: Normal sinus rhythm at a rate of 63 beats per minute with a ID interval that is prolonged at 253 consistent with a first-degree AV block. QRS 129. QT/QTC 407/415. Intraventricular conduction delay. <Leighann Snowden MD - Last Filed: 09/24/24 14:53> Discharge Plan Discharge Clinical Impression: Anemia, macrocytic, Transient memory loss, Hyponatremia, Hypoalbuminemia CKD (chronic kidney disease) Qualifiers: Chronic kidney disease stage: unspecified stage Qualified Code(s): N18.9 - Chronic kidney disease, unspecified <Paris Jones PA-C - Last Filed: 09/22/24 10:43> Patient Disposition: NH Half-Way/Asst Living <Paris Jones PA-C - Last Filed: 09/22/24 10:43> Condition: Stable <Paris Jones PA-C - Last Filed: 09/22/24 10:43> Instructions: Antibiotic Form, Transient Ischemic Attack (ED), Chronic Kidney Disease (ED), Chronic Kidney Disease Diet (DC), Hyponatremia (ED), Anemia (ED) <Paris Jones PA-C - Last Filed: 09/22/24 10:43> Additional Instructions: As we discussed, it is unclear if patient experienced a mini stroke (transient ischemic attack, TIA) and, while this is possible, his overall risk is low and thus if the decision is made to proceed with a workup can be done in the outpatient setting and your primary care physician can arrange. Otherwise labs appear stable. Do not hesitate to return to the emergency department with any new or worsening or recurring symptoms. <Paris Jones PA-C - Last Filed: 09/22/24 10:43> Patient Language: Slovak <Paris Jones PA-C - Last Filed: 09/22/24 10:43> Prescriptions: No Action metoprolol tartrate 25 mg tablet PO tamsulosin 0.4 mg capsule 0.4 mg PO QHS Qty: 90 3RF Eliquis 5 mg Tablet 5 mg PO Q12HR Qty: 60 0RF atorvastatin 10 mg tablet See Rx Instructions .ROUTE .COMPLEX Qty: 100 1RF Dose Instruction: TAKE 1 TABLET BY MOUTH DAILY Rx Instructions: TAKE 1 TABLET BY MOUTH HS lisinopril 5 mg tablet 5 mg PO DAILY Qty: 90 1RF <Paris Jones PA-C - Last Filed: 09/22/24 10:43> Follow-up/Referrals: Mateo Zhong MD [Physician] - (family practice) Aleks Treviño MD [Primary Care Provider] - <Paris Jones PA-C - Last Filed: 09/22/24 10:43> Stand Alone Forms: Shelter Discharge <Paris Jones PA-C - Last Filed: 09/22/24 10:43> Time of Disposition: 18:46 <Paris Jones PA-C - Last Filed: 09/22/24 10:43> 18:46 <Leighann Snowden MD - Last Filed: 09/24/24 14:53>
[2024-09-22 12:44] LABS: Basophils Percent Auto 0.3 % (0.2-1.2); Eosinophils Absolute Auto 0.1 K/mm3 (0-0.3); Eosinophils Percent Auto 0.7 % (0-4.4); Hematocrit 28.8 % (42.0-52.0); Hemoglobin 9.5 g/dL (14.0-18.0); Immature Granulocyte Absolute 0.04 K/mm3 (0.00-0.031); Immature Granulocyte Percent A 0.5 % (0-0.5); Lymphocytes Absolute Auto 1.65 K/mm3 (0.9-3.2); Lymphocytes Percent Auto 19.1 % (18.3-44.2); Mean Corpuscular Hemoglobin 33.9 pg (26-34); Mean Corpuscular Volume 102.9 fl (80-100); Mean Platelet Volume 10.2 fl (7.4-10.4); Monocytes Absolute Auto 0.7 K/mm3 (0.1-0.6); Monocytes Percent Auto 8.6 % (2.6-8.5); Neutrophils Absolute Auto 6.1 K/mm3 (1.3-6.7); Neutrophils Percent Auto 70.8 % (45.5-73.1); Platelet Count Result 212 k/mm3 (150-375); Red Cell Distribution Width 14.5 % (11.5-14.5); White Blood Count 8.7 K/mm3 (4.5-10.0)
[2024-09-22 12:56] LABS: INR 1.1; Prothrombin Time 15.1 Seconds (11.1-14.7)
[2024-09-22 12:57] LABS: Partial Thromboplastin Time 32.4 Seconds (22.3-36.8)
[2024-09-22 12:59] LABS: Alanine Aminotransferase 10 U/L (6-50); Albumin Level 3.1 g/dL (3.5-5.1); Alkaline Phosphatase 70 U/L (38-126); Anion Gap -4 mmol/L (4-12); Aspartate Amino Transferase 15 U/L (17-59); Bilirubin,Total 1.4 mg/dL (0.2-1.3); Blood Urea Nitrogen 29 mg/dL (9-20); Carbon Dioxide 32 mmol/L (22-30); Chloride 104 mmol/L (98-107); Creatine Kinase < 20 U/L (55-170); Estimated Glomerular Filt Rate 38; Glucose 106 mg/dL (65-110); Potassium 4.5 mmol/L (3.4-5.0); Sodium 132 mmol/L (137-145)
[2024-09-22 13:11] LABS: Troponin I < 0.012 ng/mL (0.000-0.034)
[2024-09-22 17:03] LABS: Add Urine Microscopic? NO; Appearance Urine Clear (Clear); Bilirubin Urine Negative (Negative); Blood Urine Negative (Negative); Color Urine Yellow (Yellow); Glucose Urine UA Negative (Negative); Ketones Urine Negative (Negative); Leukocyte Esterase Ur Negative LEU/UL (Negative); Nitrate Urine Negative (Negative); Protein Urine Negative (Negative); Specific Grav Ur 1.013 (1.001-1.035); Urobilinogen Urine 0.2 mg/dL (<2.0); pH Urine 5.5 (5.0-9.0)
== END 2024-09-22 19:13 ==
PROVIDERS: Physician Assistant; Emergency Provider Student in an Organized Health Care Education/Training Program; PCP Family Medicine
DX: D53.9 Nutritional anemia, unspecified (principal); R41.3 Other amnesia; E87.1 Hypo-osmolality and hyponatremia; E88.09 Other disorders of plasma-protein metabolism, not elsewhere classified; I12.9 Hypertensive chronic kidney disease with stage 1 through stage 4 chronic kidney disease, or unspecified chronic kidney disease; N18.31 Chronic kidney disease, stage 3a; E21.3 Hyperparathyroidism, unspecified; I48.91 Unspecified atrial fibrillation; N40.0 Benign prostatic hyperplasia without lower urinary tract symptoms; M19.90 Unspecified osteoarthritis, unspecified site; E78.5 Hyperlipidemia, unspecified
CPT/HCPCS: 36415; 70450; 71045; 80053; 81003; 82550; 84443; 84484; 85025; 85610; 85730; 93005; 99284

== ENCOUNTER 2024-09-23 13:25 | Outpatient (CLI) | payer MEDICARE, SELFPAY ==
--- NOTE | ~2024-09-23 | MR_ITS ---
Procedure: MR lumbar spine wo con Ordering provider: Mateo Zhong MD History: . LUMBAR W/RADICULOPATHY . Comparison: None. Technique: MRI thoracic spine without contrast. FINDINGS: Possible transitional vertebra in the last lumbar vertebra. The numbering of the vertebra is as label ed on the images. SPINAL CORD: Normal. The cord ends at the level of L1. VERTEBRAL BODIES: Slight loss of volume of L1 is noted. Edema is seen in L1 and L4. Minimal edema is seen in L3. Normal height and alignment. No compression fracture. Normal marrow signal. Minimal anterolisthesis seen at the level of L4-L5. DISK SPACES: Narrowing of the disc L4-L5 and L5-S1. Severe spinal canal stenosis at the level of L3-L4. Bilateral narrowing of the foramina with nerve ro ot compression. Thickening of the ligamenta flava. Facet joint disease seen bilaterally. Diffuse disc bulge at the level of L4-L5 with narrowing of the foramina and with nerve root compressi on. Posterior osteophytes at the level of L5-S1 with narrowing of the left foramina and nerve root compre ssion. PARASPINOUS SOFT TISSUES: Bilateral renal cysts with the largest in the right kidney upper pole. IMPRESSION: Compression fracture of L1 with bone marrow edema. Bone contusion involving L4 and the superior endplate of L2. Follow-up advised. Spinal canal stenosis at the level of L3-L4. Multilevel disc bulges with intervertebral foraminal narrowing. Reviewed, dictated and finalized at location A. RACTING MANAGER
== END 2024-09-23 13:26 | disposition home or self-care (01) ==
PROVIDERS: PCP Family Medicine; Visit Provider Family Medicine
DX: M54.16 Radiculopathy, lumbar region (principal); M51.26 Other intervertebral disc displacement, lumbar region; M48.061 Spinal stenosis, lumbar region without neurogenic claudication
CPT/HCPCS: 72148

== ENCOUNTER 2024-10-11 08:53 | Outpatient (CLI) | payer MEDICARE, SELFPAY ==
--- NOTE | 2024-10-11 12:00 | NEURO_ITS ---
Impression: # Renal patient with severe edema of lower extremities. Complains of numbness and inability to move lower extremities. ? # No reliable responses could be obtained. ? # Needle/EMG exam revealed minimal amount of motor unit potentials ? of low amplitude more so in Quads. `? # Would recommend CT scan of spine if MRI cannot be obtained. Nerve Conduction Studies Anti Sensory Summary Table ?Stim Site NR Peak (ms) P-T Amp (?V) Site1 Site2 Delta-P (ms) Dist (cm) Issa (m/s) Left Sup Fibular Anti Sensory (Ant Lat Mall)??? NO RESPONSE 14 cm NR 14 cm Ant Lat Mall 16.0 Right Sup Fibular Anti Sensory (Ant Lat Mall)??? NO RESPONSE 14 cm NR 14 cm Ant Lat Mall 16.0 Left Sural Anti Sensory (Lat Mall)??? NO RESPONSE Calf NR Calf Lat Mall 16.0 Right Sural Anti Sensory (Lat Mall) Calf ? 6.1 5.2 Calf Lat Mall 6.1 16.0 26 Motor Summary Table ?Stim Site NR Onset (ms) O-P Amp (mV) Site1 Site2 Delta-0 (ms) Dist (cm) Issa (m/s) Left Peroneal Motor (Vastus Med)??? NO RESPONSE Ankle NR Popit Ankle 0.0 Popit NR Right Peroneal Motor (Vastus Med)??? NO RESPONSE Ankle NR Popit Ankle 0.0 Popit NR Left Tibial Motor (Abd Freeman Brev)??? NO RESPONSE Ankle NR Knee Ankle 0.0 Knee NR Right Tibial Motor (Abd Freeman Brev) Ankle ? 13.8 0.0 Knee Ankle 0.0 0.0 Knee ? 13.8 0.0 F Wave Studies ?NR F-Lat (ms) L-R F-Lat (ms) Left Peroneal (Mrkrs) (EDB)??? NO RESPONSE NR Right Peroneal (Mrkrs) (EDB)??? NO RESPONSE NR Left Tibial (Mrkrs) (Abd Hallucis)??? NO RESPONSE NR Right Tibial (Mrkrs) (Abd Hallucis)??? NO RESPONSE NR EMG ?Side Muscle Nerve Root Ins Act Fibs Amp Dur Recrt Comment Right AntTibialis Dp Br Fibular L4-5 Nml Nml Nml >12ms +1 Right Gastroc Tibial S1-2 Nml Nml Nml >12ms +1 Right Fibularis Long Sup Br Fibular L5-S1 Nml Nml Nml >12ms +1 Right Flex Dig Long Tibial L5-S2 Nml Nml Nml >12ms +1 Right Ext Dig Brev Dp Br Fibular L5, S1 Nml Nml Nml >12ms +1 Right QuadratusFem QuadFemoris L4-5, S1 Nml Nml Nml >12ms +1 Left AntTibialis Dp Br Fibular L4-5 Nml Nml Nml >12ms +1 Left Gastroc Tibial S1-2 Nml Nml Nml >12ms +1 Left Fibularis Long Sup Br Fibular L5-S1 Nml Nml Nml >12ms +1 Left Flex Dig Long Tibial L5-S2 Nml Nml Nml >12ms +1 Left Ext Dig Brev Dp Br Fibular L5, S1 Nml Nml Nml >12ms +1 Left QuadratusFem QuadFemoris L4-5, S1 Nml Nml Nml >12ms +1 MTDD
--- OUTSIDE RECORDS SUMMARY | 2024-10-12 22:07 | XMS_ITS | Clinical Summary ---
Author Organization [facility] Address [address] [place] [id number] Phone Care Team Providers Care [facility] Clinical Programmer Name Role Phone Aleks Treviño MD Primary Care Provider [phone] Allergies Active Allergy Reactions Criticality Noted Date Comments Iodine Rash Medium 06/22/2019 Medications Medication Sig Dispensed Refills Start Date End Date Status fish oil-omega-3 fatty acids 1000 MG capsule Take by mouth Active acetaminophen (TYLENOL) 500 MG tablet Take 1,000 mg by mouth 04/25/2021 Active Eliquis 2.5 MG tablet 12/01/2021 Act betsy atorvastatin (LIPITOR) 10 MG tablet 10/13/2021 Active lisinopril-hydroCHLORO thiazide (PRINZIDE) 10-12.5 MG per tablet 10/13/2021 Act betsy metoprolol tartrate (LOPRESSOR) 25 MG tablet 12/01/2021 Active polyethylene glycol (GLYCOLAX) 17 GM/SCOOP powder Take 17 g by mouth 04/26/2021 Active senna (SENOKOT) 8.6 MG tablet Take 2 tablets by mouth 2 times daily 04/26/2021 Active tamsulosin (FLOMAX) 0.4 MG 24 hr capsule 11/18/2021 Acti ve cyanocobalamin (VITAMIN B-12) 1000 MCG tablet Take 1,000 mcg by mouth 1 (one) time each day Active Active Problems Problem Noted Date Diagnosed Date Monoclonal gammopathy of uncertain significance 05/22/2022 Edema of lower extremity 03/31/2022 Chronic kidney disease stage 3B 12/22/2021 Benign prostatic hyperplasia 04/25/2021 Encounter for screening for COVID-19 04/24/2021 Other hyperlipidemia 12/10/2020 Overview (12/18/2021): Last Assessment & Plan: Per patient lipid cholesterol is well controlled. Continue statin therapy Essential hypertension 07/10/2019 Overview (12/18/2021): Last Assessment & Plan: Per patient will hypertension controlled. Continue medical therapy Abdominal aortic aneurysm without rupture 2015 Overview (12/18/2021): Last Assessment & Plan: Patient continues to do well. 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 Aneurysm sac size stable. Follow-up 1 year for duplex. Immunizations Name Administration Dates Next Due Influenza Recombinant Canelo valent Injectable Preservative Free 05/24/2019 Influenza Split High Dose Preservative Free IM 0 06/02/2018,06/30/2015 Influenza TIV (IM) 05/27/2022 Influenza Trivalent Adjuvanted 07/14/2017 Pneumococcal Polysaccharide 05/24/2019 Family History Medical History Relation Comments Kidney disease Neg Hx Social History Tobacco Use Types Packs/Day Years Used Date Smoking Tobacco: Former Smokeless Tobacco: Never Alcohol Use Standard Drinks/Week Comments Not Currently 0 (1 standard drink = 0.6 oz pur e alcohol) Sex and Gender Information Value Date Recorded Sex Assigned at Not on file Gender Identity Not on file Sexual Orientation Not on file Last Filed Vital Signs Vital Sign Reading Time Taken Comments Blood Pressure 122/68 06/24/2022 11:25 AM CDT Pulse 72 06/24/2022 11:25 AM CDT Temperature 36.4 ??C (97.6 ??F) 06/24/2022 11:25 AM C DT Respiratory Rate - - Oxygen Saturation - - Inhaled Oxygen Concentration - - Weight 111 kg (244 lb) 06/24/2022 11:25 AM CDT Height 182.9 cm (6') 06/24/2022 11:25 AM CDT Body Mass Index 33.09 06/24/2022 11:25 AM CDT Plan of Treatment Health Maintenance Due Date Last Done Comments Pneumococcal PPSV23/PCV13 65 + Years / High and Highest Risk (2 of 3 - PCV) 05/24/2020 05/24/2019 Influenza Vaccine (#1) 2024 2, 05/24/2019, 07/14/2017 Care Teams Sas Clinical Programmer Relationship Specialty Start Date End Date Aleks Treviño MD [address] [place] [address] PCP - General Internal Medicine 12/01/21
--- OUTSIDE RECORDS SUMMARY | 2024-10-12 22:07 | XMS_ITS | Referral Summary ---
Author Organization [facility] [place] [facility] Office Center Address [address] [place] [address] Care Team Providers [facility] Wellness Coordinator Name Role Phone Aleks Treviño MD Primary Care Provider [phone] Abdi Page MD Unavailable [phone] Allergies Active Allergy Reactions Criticality Noted Date Comments Iodine Rash Medium 06/22/2019 Spoke with patient on 11/19/23 about his reaction and he stated that in 2014 he developed a rash in the area of cleaning for his endovascular surgery. He did not have a rash over his entire body but only in the area of cleaning of the skin. @ 0934 11/19/23 Medications atorvastatin (LIPITOR) 10 mg tablet 1 tablet (10 mg total) daily Active tamsulosin (FLOMAX) 0.4 mg extended release capsule Take 2 capsules (0.8 mg total) by mouth nightly 1 Active acetaminophen (TYLENOL) 500 mg tablet Take 2 tablets (1,000 mg total) by mouth daily as needed 1 Active cyanocobalamin (Vitamin B-12) 1,000 mcg tablet Take 1 tablet (1,000 mcg total) by mouth daily Active Eliquis 2.5 mg tabletIndication s:Atrial fibrillation, unspecified type (HCC) TAKE 1 TABLET BY MOUTH TWICE DAILY 200 tablet 2 4 Active lisinopriL (PRINIVIL,ZESTRI L) 5 mg tablet Take 1 tablet (5 mg total) by mouth daily 4 Active metoprolol tartrate (LOPRESSOR) 50 mg immediate release tablet Take 1 tablet (50 mg total) by mouth 2 (two) times a day 4 Active polyethylene glycol (MIRALAX) 17 gram/dose bulk powderIndication s:constipation Take 17 g by mouth daily for 10 days 4 Active furosemide (LASIX) 20 mg tablet Take 1 tablet (20 mg total) by mouth daily 4 05/17/20 25 Active senna-docusate (PERICOLACE) 8.6-50 mg Take 1 tablet by mouth 2 (two) times a day 4 Active cyclobenzaprine (FLEXERIL) 5 mg tablet Take 1-2 tablets (5-10 mg total) by mouth nightly as needed for muscle spasms 30 tablet 1 4 Active Active Problems Problem Noted Date Diagnosed Date Anemia 05/11/2024 Assessment & Plan (05/14/2024 9:38 AM CDT): - 05/11: Hgb 7.4 - 05/12: Hgb 7.2, 1 unit PRBCs transfused. Post transfusion Hgb 8.7 - CBC q48 Assessment & Plan (05/13/2024 9:03 AM CDT): - 8: Hgb 7.4 - 8: Hgb 7.2, 1 unit PRBCs transfused. Post transfusion Hgb 8.7 - CBC q48 Acute traumatic pain 05/08/2024 Assessment & Plan (05/14/2024 9:37 AM CDT): - Tylenol 1g q6h PRN Assessment & Plan (05/11/2024 2:23 PM CDT): - Tylenol 1g q6h PRN Arm swelling 04/29/2024 Assessment & Plan (05/14/2024 9:38 AM CDT): #Right arm edema - BUE duplex (05/01): No evidence of acute DVT bilaterally. Supervicial venous thrombosis in the R cepahlic and medial cubital vein; L basilic vein. - Elevate Assessment & Plan (05/01/2024 2:42 PM CDT): #Right arm edema - BUE duplex (05/01): No evidence of acute DVT bilaterally. Supervicial venous thrombosis in the R cepahlic and medial cubital vein; L basilic vein. - Elevate Leukocytosis 04/28/2024 Assessment & Plan (05/14/2024 9:38 AM CDT): - 04/28: WBC 15.5, T-max 36.9 - CXR (04/28): stable, no effusions - UA (04/28): positive - Ceftriaxone for UTI (04/28, 04/29)---> 04/30: Transitioned to Amoxicillin x 7 days based on urine culture. Ends 05/07 - Urine culture with enterococcus faecalis - Respiratory panel negative 04/28 Assessment & Plan (05/03/2024 11:57 AM CDT): - 04/28: WBC 15.5, T-max 36.9 - CXR (04/28): stable, no effusions - UA (04/28): positive - Ceftriaxone for UTI (04/28, 04/29)---> 04/30: Transitioned to Amoxicillin x 7 days based on urine culture. Ends 05/07 - Urine culture with enterococcus faecalis - Respiratory panel negative 04/28 CKD (chronic kidney disease) 04/28/2024 Assessment & Plan (05/15/2024 12:36 PM CDT): - Cr 1.9 in January 2023 - CK trend 1.89-1.99-1.81-1.71-1.64-1.57-1.42 - Creatinine (05/08): 1.84mg/dL - Creatinine (05/09): 1.77mg/dL - Creatinine (05/15): 1.63mg/dL - Monitor I&Os - BMP as needed Assessment & Plan (05/09/2024 2:11 PM CDT): - Cr 1.9 in January 2023 - CK trend 1.89-1.99-1.81-1.71-1.64-1.57-1.42 - Creatinine (05/08): 1.84mg/dL - Creatinine (05/09): 1.77mg/dL - Monitor I&Os - BMP as needed Discharge planning issues 04/25/2024 Assessment & Plan (05/15/2024 12:34 PM CDT): - OT reccomending IPR - 04/25: transferred to floor from ICU overnight, needs PT/OT, monitoring Hgb - f/u respiratory panel/UA -Bowel regimen - 05/08: continue OU, scheduled MARTHA and cardioversion - 05/09: improved heart rate/rhythm. Sleep hygiene. Anticipate appropriate for discharge by end of week. - 05/10: okay for TTF with Tele - 05/11: Recheck CBC tonight, continue PT/OT - 05/12: f/u post transfusion cbc -05/13-: Pending placement -05/15: Patient is medically stable for discharge, SW/CM updated. Discharge pending insurance authorization Assessment & Plan (05/14/2024 6:50 AM CDT): - OT reccomending IPR - 04/25: transferred to floor from ICU overnight, needs PT/OT, monitoring Hgb - f/u respiratory panel/UA -Bowel regimen - 05/08: continue OU, scheduled MARTHA and cardioversion - 05/09: improved heart rate/rhythm. Sleep hygiene. Anticipate appropriate for discharge by end of week. - 05/10: okay for TTF with Tele - 05/11: Recheck CBC tonight, continue PT/OT - 05/12: f/u post transfusion cbc -05/13-25: Pending placement Fall 04/25/2024 Assessment & Plan (05/14/2024 9:38 AM CDT): - Syncope work up - EKG on admission A flutter with RVR - Orthostatic vital signs negative - TTE (04/24/24): Mild AR, No MR seen, no , no MS, normal TV, normal PV. LV size is normal. LVEF 55-60%. Paradoxic septal motion - Carotid duplex (04/24): no significant stenosis -Consider bedside commode due to exertion en route to bathroom, temporal relationship with AfibRVR events Assessment & Plan (05/04/2024 8:17 AM CDT): - Syncope work up - EKG on admission A flutter with RVR - Orthostatic vital signs negative - TTE (04/24/24): Mild AR, No MR seen, no , no MS, normal TV, normal PV. LV size is normal. LVEF 55-60%. Paradoxic septal motion - Carotid duplex (04/24): no significant stenosis -Consider bedside commode due to exertion en route to bathroom, temporal relationship with AfibRVR events Thoracic spine instability 04/23/2024 Assessment & Plan (05/14/2024 9:39 AM CDT): - [facility] [place] Spine consult (Dr. Greer) - MRI thoracic spine 04/24: acute traumatic distraction injury at T10-T11 with interruption of the anterior longitudinal ligament, intervertebral disc and possible involvement of the ligamentum flavum/interspinous ligament - TLSO at all times - spinal precautions, HOB > 30 - PT/OT, pain control Assessment & Plan (04/26/2024 1:43 PM CDT): - [facility] [place] Spine consult (Dr. Greer) - MRI thoracic spine 04/24: acute traumatic distraction injury at T10-T11 with interruption of the anterior longitudinal ligament, intervertebral disc and possible involvement of the ligamentum flavum/interspinous ligament - TLSO at all times - spinal precautions, HOB > 30 - PT/OT, pain control Retroperitoneal hematoma 04/23/2024 Assessment & Plan (05/15/2024 10:18 AM CDT): small L RP hematoma - CT: Asymmetric thickening of the left iliopsoas musculature, which contains small hypodense foci, concerning for small volume retroperitoneal hematoma at this site - trend CBC (10.7 -> 9.4 -> 9.1-> 8.4-> 8.8->9.0-> 9.1) - 05/12: Hgb 7.2 (7.4, 7.9), 1upRBC given. F/u post transfusion CBC. If ok lab holiday -05/13: Hgb 8.7 -05/15: Hgb 8.4 - Consider transfusion for Hgb<7 - CBC q48 Assessment & Plan (05/13/2024 8:53 AM CDT): small L RP hematoma - CT: Asymmetric thickening of the left iliopsoas musculature, which contains small hypodense foci, concerning for small volume retroperitoneal hematoma at this site - trend CBC (10.7 -> 9.4 -> 9.1-> 8.4-> 8.8->9.0-> 9.1) - 05/12: Hgb 7.2 (7.4, 7.9), 1upRBC given. F/u post transfusion CBC. If ok lab holiday -05/13: Hgb 8.7 - Consider transfusion for Hgb<7 - CBC q48 Encephalopathy 04/23/2024 Assessment & Plan (05/14/2024 9:38 AM CDT): - AAOx0 on initial evaluation but following simple commands - AAOX4 at baseline and prior to fall per family - CT head x2 unremarkable - 04/24: AOx4 RESOLVED Assessment & Plan (05/07/2024 11:41 AM CDT): - AAOx0 on initial evaluation but following simple commands - AAOX4 at baseline and prior to fall per family - CT head x2 unremarkable - 04/24: AOx4 RESOLVED Traumatic rhabdomyolysis, initial encounter 11/2023 Assessment & Plan (05/14/2024 9:39 AM CDT): - CK downtrending >13,000 (OSH) -> 9970 -> 7364 --> 1122 - IVF resuscitation Resolved Assessment & Plan (04/26/2024 1:43 PM CDT): - CK downtrending >13,000 (OSH) -> 9970 -> 7364 --> 1122 - IVF resuscitation Resolved 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 Assessment & Plan (05/14/2024 9:39 AM CDT): - OSH CT: Postoperative changes of aortobiiliac grafting for infrarenal abdominal aortic aneurysm repair, with unchanged hypodensity within focus within the excluded aneurysm sac, likely a type II endoleak - incidental Type 2 endoleak s/p stent graft in 2016 -stable, no acute changes Assessment & Plan (04/25/2024 2:56 PM CDT): - OSH CT: Postoperative changes of aortobiiliac grafting for infrarenal abdominal aortic aneurysm repair, with unchanged hypodensity within focus within the excluded aneurysm sac, likely a type II endoleak - incidental Type 2 endoleak s/p stent graft in 2015 -stable, no acute changes Assessment & Plan (12/18/2023 5:23 PM CDT): Stable type 2 endoleak. No aneurysms growth. No need for intervention follow up [address] scan. Assessment & Plan (02/22/2023 10:32 AM CDT): Presence of a type 2 endoleak with no definitive sac growth. Will continue ongoing CT surveillance. Monoclonal gammopathy of unknown significance (M ADRIANA) 05/22/2022 01/11/2023 A-fib (CMS/HCC) 03/31/2022 Assessment & Plan (05/09/2024 2:11 PM CDT): - on home Eliquis 2.5 BID, metoprolol 25 mg BID - last dose of Eliquis 8 AM - Off amiodarone gtt - Resumed Eliquis 04/24 - TTE 04/24: LVEF 55-60%, paradoxic septal motion - 05/01: Afib RVR to 130s, given metoprolol 5 mg IV x 1 dose. Started amiodarone gtt. PO metoprolol increased to 50 mg BID. Transferred to OU. -05/02: complete amio drip today, start metop. Remain in OU -metoprolol 5 mg IV x1 given this morning for RVR to rate of 140's -Cardiology recommends: metoprolol 75mg BID, Diuresis ~2L. -05/03 Lasix 40 mg IV given for Urine output 950 ml over last 24 hours. -05/04: ACT yesterday, on amio drip. Ending today. Increased metoprolol to 100 BID + PO diltiazem IR 30mg q6h for HR > 120bpm and hold for MAP < 60 and HR < 60. - If unable to tolerate both beta-blockade + calcium-channel blockade by BP, ok to use amiodarone for rate control. -05/05: BPs and HRs improved today. Metoprolol 100 BID. Amio runs out tonight. NPO at Midnight 05/08 for cardioversion + MARTHA - 05/06-: doing ok off amiodarone. no RVR overnight; rate controlled in the 60s on AM rounds. IV lasix 20mg x1 per cardiology recs. Limit crystalloids. 05/07: NPO at midnight for cardioversion tomorrow. COntinue gentle diuresis with 20mg IV lasix -05/08: hold diuresis today. MARTHA/Cardioversion (05/08): Normal LV and systolic function (estimated LVEF 55-60%). Mildly dilated RV size with preserved systolic function normal LA and RA sizes. Mild MR, Mild AI. Mild TR, otherwise, no hemodynamically significant valvular heart disease. BOGDAN is free of thrombus with normal Doppler emptying velocities. No color flow Doppler evidence of PFO. No intracardiac masses, vegetations, or thrombi detected.No pericardial effusion - 05/09: Metoprolol decreased 50mg BID Chronic anticoagulation 03/31/2022 Idiopathic hypotension 03/31/2022 S/P AAA repair 03/31/2022 Assessment & Plan (12/18/2023 5:23 PM CDT): Stent graft in good position. Stable type [address] surveillance. Assessment & Plan (02/22/2023 10:32 AM CDT): Stent graft in good position. Patient has type 2 endoleak does not require further workup and or intervention currently. Continue surveillance 612 months. Assessment & Plan (01/27/2023 9:06 AM CDT): Stent graft in good position but possible new endoleak found on duplex with possible aneurysms sac size growth. Will obtain CT angiogram for more complete evaluation follow-up 1 month. Leg edema 03/31/2022 VPC's (ventricular premature complexes) 03/31/20 Premature ventricular contractions (PVCs) (VPCs) 03/31/2022 Stage 3b chronic kidney disease 12/22/2021 Assessment & Plan (05/15/2024 10:17 AM CDT): - Cr 1.90 in 2022 - Cr 1.89 on admission - Cr trend: 1.89- 1.99- 18.1- 1.71-1.64-1.57-1.42 - 05/11: Cr 1.73 - 05/15: Cr 1.63 - BMP q48 Assessment & Plan (05/13/2024 8:52 AM CDT): - Cr 1.90 in 2022 - Cr 1.89 on admission - Cr trend: 1.89- 1.99- 18.1- 1.71-1.64-1.57-1.42 - 05/11: Cr 1.73 - BMP q48 Enlarged prostate with lower urinary tract sympt oms (LUTS) 04/25/2021 Assessment & Plan (05/14/2024 9:38 AM CDT): - Continue home tamsulosin - bianchi out, void check passed Assessment & Plan (04/26/2024 6:36 AM CDT): - Continue home tamsulosin - bianchi out, void check passed Encounter for screening for COVID-19 04/24/2021 Osteoarthritis 04/23/2021 Osteoarthritis of right hip 03/11/2021 05 Other hyperlipidemia 12/10/2020 Assessment & Plan (01/27/2023 9:06 AM CDT): Hyperlipidemia chronic and controlled. Continue Lipitor. Assessment & Plan (01/11/2021 4:53 PM CDT): Per patient lipid cholesterol is well controlled. Continue statin therapy Essential hypertension 07/10/2019 Assessment & Plan (05/14/2024 9:38 AM CDT): - resume home lisinopril 5 mg daily Assessment & Plan (04/26/2024 6:35 AM CDT): - resume home lisinopril 5 mg daily Assessment & Plan (12/18/2023 5:23 PM CDT): Hypertension chronic controlled. Continue current medical management Assessment & Plan (02/22/2023 10:31 AM CDT): Hypertension chronic and controlled. Continue current medical management. Assessment & Plan (01/27/2023 9:05 AM CDT): Hypertension chronic and controlled. Continue current medical management. Assessment & Plan (01/11/2021 4:52 PM CDT): Per patient will hypertension controlled. Continue medical therapy Assessment & Plan (07/10/2019 2:46 PM CDT): Impression: Stable hypertension. Plan: Continue current antihypertensive regimen as directed by PCP. Resolved Problems Problem Noted Date Diagnosed Date Resolved Date Abdominal aortic aneurysm, without rupture 04/23/2016 03/31/2022 Assessment & Plan (01/11/2021 4:52 PM CDT): Patient continues to do well. 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 Aneurysm sac size stable. Follow-up 1 year for duplex. Assessment & Plan (07/10/2019 2:47 PM CDT): Impression: Patient is status post EVAR on 03/19/2015 and has been lost to follow-up. He is currently asymptomatic. Last surveillance CTA was performed in 2016. Plan: Obtain CTA abdomen pelvis to evaluate previous endovascular repair of an infrarenal AAA. Patient follow-up in 1 month for discussion of test results. Immunizations Name Administration Dates Next Due Influenza Virus Vaccine Trivalent Mdv 07/14/2017 Influenza, Quadrivalent, Rec ombinant, Egg Free, Preservative Free, Intramuscular 05/24/2019 Influenza, Trivalent, Adjuvanted, Intramuscular 07/14/2017 Influenza, Trivalent, High D ose, Split, Preservative Free, Intramuscular 06/02/2018,06/30/2015 Influenza, Trivalent, IM (MDV) 05/27/2022 Pneumococcal Polysaccharide PPV23 05/24/2019 Social History Tobacco Use Types Packs/Day Years Used Date Smoking Tobacco: Former Tobacco Cessation:Counseling Given: No [facility] Utilities Answer Date Recorded In the past 12 months has e [employer], [employer], oil, or water [employer] threatened to shut off services in your home? No 05/02/2024 Humiliation, Afraid, Rape, and Kick questionnair e Answer Date Recorded Within the last year, have y ou been afraid of your partner or ex-partner? No 05/02/2024 Within the last year, have y ou been humiliated or emotionally abused in other ways by your partner or ex-partner? No Within the last year, have y ou been kicked, hit, slapped, or otherwise physically hurt by your partner or ex-partner? No 05/02/2024 Within the last year, have y ou been raped or forced to have any kind of sexual activity by your partner or ex-partner? No 05/02/2024 Social Connection and Isolat ion Panel [NHANES] Answer Date Recorded In a typical week, how many times do you talk on the phone with family, friends, or neighbors? More than three times a week 05/02/2024 How often do you get togethe r with friends or relatives? Three times a week 05/02/2024 How often do you attend chur or mu-ism services? More than 4 times per year 05/02/2024 Do you belong to any clubs o r organizations such as islam groups, unions, fraternal or athletic groups, or school groups? No 05/02/2024 How often do you attend meet ings of the clubs or organizations you belong to? Never 05/02/2024 Are you , , di vorced, , never , or living with a partner? 05/02/2024 AUDIT-C Answer Date Recorded Q1: How often do you have a drink containing alcohol? Never 05/02/2024 Q2: How many drinks containi ng alcohol do you have on a typical day when you are drinking? Patient does not drink Q3: How often do you have si x or more drinks on one occasion? Never 05/02/2024 Overall Financial Resource Strain (CARDIA) Answe r Date Recorded How hard is it for you to pa y for the very basics like food, housing, medical care, and heating? Not hard at all 05/02/2024 [facility] Occupat ional Health - Occupational Stress Questionnaire Answer Date Recorded Do you feel stress - tense, restless, nervous, or anxious, or unable to sleep at night because your mind is troubled all the time - these days? To some extent 05/02/2024 Exercise Vital Sign Answer Date Recorde d On average, how many days pe r week do you engage in moderate to strenuous exercise (like a brisk walk)? 0 days 05/02/2024 On average, how many minutes do you engage in exercise at this level? 0 min 05/02/2024 Hunger Vital Sign Answer Date Recorded Within the past 12 months, y ou worried that your food would run out before you got the money to buy more. Never true 05/02/20 24 Within the past 12 months, t he food you bought just didn't last and you didn't have money to get more. Never true 05/02/2024 PRAPARE - Transportation Answer Date Re corded In the past 12 months, has l ack of transportation kept you from medical appointments or from getting medications? No 04/20 In the past 12 months, has l ack of transportation kept you from meetings, work, or from getting things needed for daily living? No 05/02/2024 Housing Stability Vital Sign Answer Tony e Recorded In the last 12 months, was t here a time when you were not able to pay the mortgage or rent on time? No 05/02/2024 In the past 12 months, how m any times have you moved where you were living? 0 05/02/2024 At any time in the [facility], were you homeless or living in a half-way (including now)? No 05/02/2024 Personal Safety Answer Date Recorded Have you ever been in or are you currently in a harmful physical or emotional relationship or is someone making you feel afraid or unsafe? Denies 05/01/2024 Sex and Gender Information Value Date Recorded Sex Assigned at Not on file Legal Sex Male 3:41 AM [employer] Gender Identity Not on file Sexual Orientation Not on file Last Filed Vital Signs Vital Sign Reading Time Taken Comments Blood Pressure 137/56 05/16/2024 8:52 AM CDT Pulse 62 05/16/2024 8:52 AM CDT Temperature 36.5 ??C (97.7 ??F) 05/16/2024 8:52 AM CD T Respiratory Rate 18 05/16/2024 8:52 AM CDT Oxygen Saturation 98% 05/16/2024 8:52 AM CDT Inhaled Oxygen Concentration - - Weight 113.9 kg (251 lb) 06/23/2024 10:18 AM CDT Height 182.9 cm (6') 06/23/2024 10:18 AM CDT Body Mass Index 34.04 06/23/2024 10:18 AM CDT Plan of Treatment Not on file Additional Health Concerns Infection Onset 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 04/29/2024 Insurance [address] [address] [id number] MEDICARE SOLUTIONS MEDICARE SOLUTIONS MEDICARE SOLUTIONS Advance Directives For more information, please contact: [phone] Documents on File Type Date Recorded Patient Zigzag El[employer] Attacher Expl anation ADVANCE DIRECTIVE 05/11/2024 1:21 AM POWER OF NURSE SPECIALIST-MEDICAL ADVANCE DIRECTIVE 04/24/2024 10:52 AM AD/PO A Document * LIMITED - No CPR (Latest Code Status on File) Date Activated Date Inactivated Comments 04/23/2024 2:07 AM 05/16/2024 6:58 PM Question Answer Comments Provide aggressive medical m anagement before a full cardiopulmonary arrest occurs. Use antibiotics, IV Fluids, and medical treatment unless specifically selected below: No intubation * Full Code Date Activated Date Inactivated Comments 04/23/2024 1:51 AM 04/23/2024 2:07 AM Care Teams Campus Wellness Coordinator Relationship Specialty Start Date End Date Aleks Treviño MD PCP - General 02/21/15 Abdi Page MD [address] [facility] [address] [address] Surgeon Vascular Surgery 01/11/23
--- OUTSIDE RECORDS SUMMARY | 2024-10-12 22:07 | XMS_ITS | Data Portability ---
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 Not available 09/04/2024 14:54:31 09/06/2024 09/06/2024 Pt will d/c back to [facility] apartment at [place] on 09/08. Not available 09/06/2024 14:41:21 Plan of Treatment Reminders Order Date Submit Date Provider Last Modified By Organization Details Last Modified Time Details Appointments None record ed. Lab None record ed. Referral None record ed. Procedures None record ed. Surgeries None record ed. Imaging None record ed. Medication Orders None record ed. Patient TargetsNo targets recorded. Patient Instructions Encounter Date Encounter Id Patient Instructions Last Modified By Organization Details Last Modified Time 08/27/2024 [id number] I spent {{16* 17 18 19 20 21 22 23 24 25}} minutes counseling and discussing advance directives and/or end of life care planning and decisions with the {{patient* surrog ate patient and surrogate}} today. I reviewed the current relevant diagnoses, treatment options, natural history, and prognosis and clarified the patient's goals of care. code status is DNR I spent {{ 68#}} minutes providing care to the patient today. More than 50% of that time was spent in discussing the expected course of the disease, discussing prognosis, coordinating care and counseling of the patient/family. [email or web address] Not available 08/30/2024 07:13:20 08/31/[id number] I spent {{ 35#}} minutes providing care to the patient today. More than 50% of that time was spent in discussing the expected course of the disease, discussing prognosis, coordinating care and counseling of the patient/family. Not available 08/31/2024 13:22:15 09/04/[id number] I spent {{ 34#}} minutes providing care to the patient today. More than 50% of that time was spent in discussing the expected course of the disease, discussing prognosis, coordinating care and counseling of the patient/family. Not available 09/04/2024 14:46:05 09/06/[id number] I spent {{ 40#}} minutes providing care to the patient today. More than 50% of that time was spent in discussing the expected course of the disease, discussing prognosis, coordinating care and counseling of the patient/family. The patient will be discharged home with home health orders of home health RN / PT / OT to evaluate and treat. The patient is homebound because of {{gait instability poor balance fall risk* respiratory difficulties cogn itive impairment disori entation severe pain wounds}} and is unable to leave home safely because {{requires use of an assistive device and assistance of another person to leave home requires considerable and taxing effort to leave home* of cognitive impairment}}. The patient requires home health nursing for instruction, observation and assessment; PT for training to restore safe independent functional ambulation in community; and OT for training to improve ability to fulfill ADLs. Please follow-up with your primary care provider within 1 week. Call your primary care provider for instructions or go to the emergency room for new or worsening symptoms. [email or web address] Not available 09/06/2024 14:43:34 Reason for Referral None Reported. Results Created Date Observation Date Name Description Value Unit Range Abnormal Flag Note LastModifiedBy Organization Detail LastModifiedTime Result Notes None recorded. 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 Procedure Notes None recorded. Medical Equipment None Reported. Allergies Allergen ID Allergen Name Allergen Category Reaction Reaction Severity Criticality Documentation Date Start Date Code Code System Note Provider Name and Address Organization Details Recorded Time [id number] iodine medicatio n Not available Not available Not available 08/28/2024 5933 RxNorm Not Available Not Available Not Available Medications Name Sig Start Date Stop Date Status Note LastModified by Organization Details LastModified Time Abreva 10 % topical cream Apply 1 applicati on 5 times a day by topical route for 5 days. active Not Available Not Available No t Available tizanidine 2 mg tablet Take 1 tablet every 6 hours by oral route as needed. active Not Available Not Available No t Available polyethylen e glycol 3350 17 gram oral powder packet Take 1 packet every day by oral route. active Not Available Not Available No t Available atorvastati n 10 mg tablet Take 1 tablet every day by oral route. active Not Available Not Available No t Available cyanocobala min (vit B-12) 1,000 mcg tablet Take 1 tablet every day by oral route. active Not Available Not Available No t Available Eucerin topical cream Apply 1 applicati on twice a day by topical route as needed. 08/31 completed Not Available Not Available Not Available acetaminoph en 500 mg tablet Take 2 tablets every day by oral route as needed. active Not Available Not Available No t Available tamsulosin 0.4 mg capsule Take 2 capsules every day by oral route in the evening. active Not Available Not Available No t Available metoprolol tartrate 50 mg tablet Take 1 tablet twice a day by oral route. active Not Available Not Available No t Available lisinopril 5 mg tablet Take 1 tablet every day by oral route. active Not Available Not Available No t Available furosemide 20 mg tablet Take 1 tablet every day by oral route. active Not Available Not Available No t Available lisinopril 2.5 mg tablet Take 1 tablet every day by oral route. 08/30 completed Not Available Not Available Not Available escitalopra m 10 mg tablet Take 1 tablet every day by oral route. active Not Available Not Available No t Available Senna Plus 8.6 mg-50 mg tablet Take 1 tablet twice a day by oral route. active Not Available Not Available No t Available Eliquis 2.5 mg tablet Take 1 tablet twice a day by oral route. active Not Available Not Available No t Available Vitals Date Recorded Heart rate Body temperature Respiratory rate Oxygen saturation Oxygen saturation in Arterial blood by Pulse oximetry Body weight Body mass index (BMI) Body height Systolic blood pressure Diastolic blood pressure Provider Name and Address Organization Details Last Updated DateTime 4 59 /min 98.2 [degF] 20 /min 95 % 95 % 031584. 31 g 32.1 kg/m2 182.88 cm 115 mm[Hg] 55 mm[Hg] [place] [address] [place], [address], [facility] 4 05:10:04 Date Recorded Body height Heart rate Respiratory rate Oxygen saturation Oxygen saturation in Arterial blood by Pulse oximetry Body mass index (BMI) Body weight Body temperature Systolic blood pressure Diastolic blood pressure Provider Name and Address Organization Details Last Updated DateTime 4 182.88 cm 69 /min 17 /min 95 % 95 % 32.4 kg/m2 472454. 29 g 98.2 [degF] 101 mm[Hg] 50 mm[Hg] [place] [address] [place], [address], [facility] 4 13:01:41 Date Recorded Body height Heart rate Body temperature Respiratory rate Oxygen saturation Oxygen saturation in Arterial blood by Pulse oximetry Body mass index (BMI) Body weight Systolic blood pressure Diastolic blood pressure Provider Name and Address Organization Details Last Updated DateTime 4 182.88 cm 105 /min 98.5 [degF] 18 /min 95 % 95 % 32.7 kg/m2 817058. 76 g 92 mm[Hg] 55 mm[Hg] Alcira [place]ayo, [place] [address] [facility], [place], [address], [place] [facility] 4 14:40:12 Date Recorded Body height Heart rate Body temperature Respiratory rate Oxygen saturation Oxygen saturation in Arterial blood by Pulse oximetry Body mass index (BMI) Body weight Systolic blood pressure Diastolic blood pressure Provider Name and Address Organization Details Last Updated DateTime 4 182.88 cm 57 /min 97.8 [degF] 18 /min 95 % 95 % 33.2 kg/m2 551576. 13 g 140 mm[Hg] 71 mm[Hg] Alcira Aguayo, [place] [address] [place], [address], [place] [facility] 10:22:37 Social History Question Answer Notes LastModified by Organizat ion Details LastModified Time Tobacco Smoking Status Former Smoker Arcadio Frank [place], [place] - [facility] 08/29/2024 00:44:25 What Is Your Level Of Alcohol Consumption? None Information not available 08/29/2024 What Is Your Code Status? Full Code Information not available 08/29/2024 How Much Tobacco Do You Smoke? 0.25 PPD Information not available 08/29/2024 Do You Use Any Illicit Or Recreational Drugs? No Information not available 08/29/2024 How Many Years Have You Smoked Tobacco? 5 Information not available 08/29/2024 Sex: Unknown Functional Status None recorded. Mental Status None recorded. Family History Relationship Description Onset Age of this Age Resolved Age Notes LastModified by Organization Details LastModified Time Mother Hypertensive disorder Not available 2023 00:47:39 Mother Congestive heart failure Not available 2023 00:48:02 Mother Heart disease Not available 2023 00:48:09 Father Malignant tumor of pancreas Not available 2023 00:48:16 Daughter No current problems or disability Not available 08/29 00:48:26 Unspecified Relation Malignant tumor of colon Not available 2023 00:48:42 Unspecified Relation Hypercholest erolemia Not available 2023 00:48:48 Medical History Condition Response Atrial Fibrillation Y Hyperthyroidism Y Hyperlipidemia Y Rheumatoid Arthritis Y Hypertension Y Benign Prostatic Hyperplasia (BPH) Y Past Encounters Encounter ID Performer Location Encounter Start Date Encounter Closed Date Diagnosis/Indication Diagnosis SNOMED-CT Code Diagnosis ICD10 Code Diagnosis Note [id number] Aracelis Ocampo, [address] [address] 08/28/2024 00:09:11 09/07/2024 09:12:31 Pain in left foot 9022861422 69287 M79.672 subsequent to a ground level fall at his [facility] a few weeks agoinitial imaging done at was concerning for fracture. He was sent to [facility] with [facility]int [facility] with repeat xrays that showed only a dorsal avulsion fracture of the navicular bone which was thought to likely be old.He is currently WBAT to the [facility] with activities as tolerated. He is to f/u with ortho prnTherapi es have been initiatedc ontinue prn tylenol and prn tizanidine for pain/spasm s Atrial fibrillation 4943 6004 I48.91 rate is controlled with metoprolol continue eliquis for VTE prophylaxi s Essential hypertension 66121554 I10 continue metoprolol , lisinopril and lasixtrend pressures and adjust meds as clinically indicated Hyperlipidemia 68638012 E78.5 stable - continue statin therapy Constipation 00487979 K5 9.00 chronic - continue usual routine meds of miralax daily and senna s BIDadditio nal meds available per standing orders Major depr essive disorder 524032330 F32.9 per patient report, stable - continue escitalopr am Benign pro static hyperplasia without outflow obstruction 308340020 N40.0 no reported urinary difficulti es at this time - continue high dose flomax Weakness o f left lower limb 0708984814 25516 M62.81 ongoing over the recent months thought to be related to lumbar radiculopa thy but worsening since his most recent fall in ntinue therapieso rthopedics recommende d using a drop lock hinged knee brace but the patient has not chosen to useconside r dedicated lumbar spine imaging (MRI) as outpatient Edema of l ower extremity 383238542 R60.0 chronic with left greater than rightconti nue compressio n dressings daily/leg elevation when ablecontin ue low dose lasixmonit or clinically Fracture o f thoracic spine 787331318 S22.018D related to a fall back in Aprilhe was admitted to [facility] at that time, followed by neurosurge ry, wore a TLSO brace for a time with last noted follow-up in June with recommenda tions to discontinu e TLSO brace and f/u prncontinu e therapies, supportive measures Chronic ki dney disease stage 3 373641862 N18.30 creatinine was 1.9 in January of 2023, during his recent hospitaliz ation at [facility], creatinine ranged from 1.42-1.99a void nephrotoxi ns and continue to trend Abdominal aortic aneurysm 232508298 I71.40 he is s/p endovascul ar repair in 2015 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 Initial imaging done at was concerning for fracture. He was sent to [place] [facility] with OCL splint placed and made NWB to the [facility]. Ortho saw him in the office 08/21/24 with repeat xrays that showed only a dorsal avulsion fracture of the navicular bone, which was thought to likely be old.He is currently WBAT to the [facility] with activities as tolerated. He is to f/u with ortho PRN.Therap ies have been initiated. Continue PRN Tylenol and PRN Tizanidine for pain/spasm s. Weakness o f left lower limb 5759292968 20002 M62.81 Ongoing over the recent months thought to be related to lumbar radiculopa thy but worsening since his most recent fall in July.C ontinue therapies. Orthopedic s recommende d using a drop lock hinged knee brace, but the patient has declined.C onsider dedicated lumbar spine imaging (MRI) as outpatient . Atrial fibrillation 4943 6004 I48.91 Rate is controlled with Metoprolol .Continue Eliquis for VTE prophylaxi s. Essential hypertension 29374605 I10 Stable. Continue Metoprolol , Lisinopril , and Lasix.Cont inue to trend blood pressures, monitor lytes and renal function, and adjust meds as clinically indicated. Hyperlipidemia 42488711 E78.5 Stable. Continue statin. Constipation 27287918 K5 9.00 Chronic. Continue usual routine meds of Miralax daily and senna s BID.Additi onal meds available per standing orders. Major depr essive disorder 824429397 F32.9 Per patient report. Stable - Continue Escitalopr am. Benign pro static hyperplasia without outflow obstruction 412538218 N40.0 No reported urinary difficulti es at this time. Continue high dose Flomax. Edema of l ower extremity 656427262 R60.0 Chronic with left greater than right.Cont inue compressio n dressings daily/leg elevation when able.Cristian nue low dose Lasix.Perla tor clinically . Fracture o f thoracic spine 581532935 S22.018D Related to a fall back in April 2024. Was admitted to [facility] at that time, followed by neurosurge ry, wore a TLSO brace for a time, with last noted follow-up in June with recommenda tions to discontinu e TLSO brace and f/u prn.Contin ue therapies and supportive measures. Chronic ki dney disease stage 3 310425633 N18.30 Cr was 1.9 in January of 2023. During his recent hospitaliz ation at [facility], creatinine ranged from 1.42-1.99. Avoid nephrotoxi ns and continue to trend. 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 Recent CT scan showed stable postoperat betsy changes of the graft. Continue supportive measures. Recurrent falls 05150563 [address]29[address]Cont inue therapies. Recent labs to include TSH, Vitamin D, and B12 WNL.Consid er further lumbar spine imaging as outpatient although patient reluctant for aggressive interventi ons related to possible spine pathology. History of vertebral fracture 513117509 Z87.81 Related to a fall back in April 2024 resulting in T10-T11 fractures/ ligamentou s injury. Was admitted to [facility] at that time, followed by neurosurge ry, wore a TLSO brace for a time, with last noted follow-up in June with recommenda tions to discontinu e TLSO brace and f/u prn.Contin ue therapies and supportive measures. [id number] Alcira Aguayo NP [place] [address] [place] [address] 09/04/2024 10:22:06 09/07/2024 13:39:33 Pain in left foot 7379516280 23941 M79.672 Subsequent to a ground level fall at his [facility] a few weeks ago. Initial imaging done at was concerning for fracture. He was sent to [place] ER with OCL splint placed and made NWB to the [facility]. Ortho saw him in the office 08/21/24 with repeat xrays that showed only a dorsal avulsion fracture of the navicular bone, which was thought to likely be old.He is currently WBAT to the [facility] with activities as tolerated. He is to f/u with ortho PRN.Therap ies have been initiated. Continue PRN Tylenol and PRN Tizanidine for pain/spasm s. Weakness o f left lower limb 4301194746 56917 M62.81 Ongoing over the recent months thought to be related to lumbar radiculopa thy but worsening since his most recent fall in July.C ontinue therapies. Orthopedic s recommende d using a drop lock hinged knee brace, but the patient has declined.C onsider dedicated lumbar spine imaging (MRI) as outpatient . Recurrent falls 35371808 [address]29[address]Cont inue therapies. Recent labs to include TSH, Vitamin D, and B12 WNL.Consid er further lumbar spine imaging as outpatient although patient reluctant for aggressive interventi ons related to possible spine pathology. Essential hypertension 96887687 I10 Stable. Continue Metoprolol , Lisinopril , and Lasix.Cont inue to trend blood pressures, monitor lytes and renal function, and adjust meds as clinically indicated. Atrial fibrillation 4943 6004 I48.91 Rate is controlled with Metoprolol .Continue Eliquis for VTE prophylaxi s. Chronic ki dney disease stage 3 607907057 N18.30 Cr was 1.9 in January of 2023. During his recent hospitaliz ation at [facility], creatinine ranged from 1.42-1.99. Avoid nephrotoxi ns and continue to trend. Hyperlipidemia 47442507 E78.5 Stable. Continue statin. Edema of l ower extremity 532551298 R60.0 Chronic with left greater than right.Cont inue compressio n dressings daily/leg elevation when able.Cristian nue low dose Lasix.Perla tor clinically . Benign pro static hyperplasia without outflow obstruction 206764445 N40.0 No reported urinary difficulti es at this time. Continue high dose Flomax. Major depr essive disorder 741136173 F32.9 Per patient report. Stable - Continue Escitalopr am. Constipation 11273440 K5 9.00 Chronic. Continue usual routine meds of Miralax daily and senna s BID.Additi onal meds available per standing orders. Fracture o f thoracic spine 779467608 S22.018D Related to a fall back in April 2024. Was admitted to [facility] at that time, followed by neurosurge mike, wore a TLSO brace for a time, with last noted follow-up in June with recommenda tions to discontinu e TLSO brace and f/u prn.Contin ue therapies and supportive measures. History of vertebral fracture 665780869 Z87.81 Related to a fall back in April 2024 resulting in T10-T11 fractures/ ligamentou s injury. Was admitted to [facility] at that time, followed by neurosurge ry, wore a TLSO brace for a time, with last noted follow-up in June with recommenda tions to discontinu e TLSO brace and f/u prn.Contin ue therapies and supportive measures. 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 Recent CT scan showed stable postoperat betsy changes of the graft. Continue supportive measures. Herpes labialis 7513035 B00.1 Add Abreva, okay to keep at bedside and self-admin ister. [id number] Alcira Aguayo NP [place] [address] [place] [address] 09/06/2024 09:24:16 09/14/2024 11:44:13 Herpes labialis 7781345 B00.1 Nearly resolved. Continue Abreva until resolution . Pain in left foot 832664 8125 11295 M79.672 Subsequent to a ground level fall at his [facility] a few weeks ago. Initial imaging done at was concerning for fracture. He was sent to [place] ER with OCL splint placed and made NWB to the [facility]. Ortho saw him in the office 08/21/24 with repeat xrays that showed only a dorsal avulsion fracture of the navicular bone, which was thought to likely be old.WBAT to [facility]. He is to f/u with ortho PRN.Contin ue PRN Tylenol and PRN Tizanidine for pain/spasm s. Weakness o f left lower limb 6657880519 08268 M62.81 Ongoing over the recent months thought to be related to lumbar radiculopa thy but worsening since his most recent fall in July.O rthopedics recommende d using a drop lock hinged knee brace, but the patient has declined.C onsider dedicated lumbar spine imaging (MRI) as outpatient . Recurrent falls 43423112 [address] R29.[address]Rece nt labs to include TSH, Vitamin D, and B12 WNL.Consid er further lumbar spine imaging as outpatient although patient reluctant for aggressive interventi ons related to possible spine pathology. Essential hypertension 11310297 I10 Stable. Continue Metoprolol , Lisinopril , and Lasix. Atrial fibrillation 4943 6004 I48.91 Rate is controlled with Metoprolol .Continue Eliquis for VTE prophylaxi s. Chronic ki dney disease stage 3 353036125 N18.30 Cr was 1.9 in January of 2023. During his recent hospitaliz ation at [facility], creatinine ranged from 1.42-1.99. Avoid nephrotoxi ns and continue to trend. Hyperlipidemia 88760181 E78.5 Stable. Continue statin. Edema of l ower extremity 981460392 R60.0 Chronic with left greater than right.Cont inue compressio n dressings daily/leg elevation at rest.Cristian nue low dose Lasix.Perla tor clinically . Benign pro static hyperplasia without outflow obstruction 884176429 N40.0 No reported urinary difficulti es at this time. Continue high dose Flomax. Major depr essive disorder 036363783 F32.9 Per patient report. Stable. Continue Escitalopr am. Constipation 42608751 K5 9.00 Chronic but stable. Continue usual routine meds of Miralax daily and senna s BID. History of vertebral fracture 246997162 Z87.81 Related to a fall back in April 2024 resulting in T10-T11 fractures/ ligamentou s injury. Was admitted to [facility] at that time, followed by neurosurge ry, wore a TLSO brace for a time, with last noted follow-up in June with recommenda tions to discontinu e TLSO brace and f/u prn.Contin ue therapies and supportive measures. 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 Recent CT scan showed stable postoperat betsy changes of the graft. Continue supportive measures. Health Concerns Section Related Observation LastModified by Organization Detai ls LastModified Time None Recorded Concern Status LastModified by Organization Details LastModified Time None Recorded Advance Directives Directive None Recorded Payers Encounter Date Sequence Insurance Name Policy Number Policy [place] Covered Member ID [place] Member ID Guarantor Name 08/27/2024 1 [facility] (MEDICARE REPLACEMENT/A DVANTAGE - O) [id number] Tom Matute [id number] Tom Matute 08/31/2024 1 [facility] (MEDICARE REPLACEMENT/A DVANTAGE - HMO) [id number] Tom Matute [id number] Tom Matute 09/04/2024 1 [facility] (MEDICARE REPLACEMENT/A DVANTAGE - HMO) [id number] Tom Matute [id number] Tom Canchola Blkalin 09/06/2024 1 [facility] (MEDICARE REPLACEMENT/A DVANTAGE - HMO) [id number] Tom Matute [id number] Tom Matute Notes Date Note Type Note Provider Name and Address Organization Details Recorded Time 08/27/2024 text/html 89 Y/O white lucas e with a history of afib, CKD, HTN, AAA s/p EVAR and falls admitted to [facility] for post acute rehab following a fall at his assisted living apartment which caused left leg pain and weakness. The patient reports he was walking in the hallway outside of his [facility] apartment to get some exercise using his wheeled walker when he lost balance landing onto his left side in mid-July. He reports his left foot landed beneath him as he went down. He had mild discomfort but was able to bear weight following the fall. Xrays were done at [facility] several days after the fall which were concerning for a possible fracture of the foot. So, he was sent to [facility] 08/10/2024 for further evaluation. He was placed in a posterior OCL split, made non weight bearing and scheduled to see orthopedics 08/21. He was seen by PA, Caesar Villegas, with [facility] who did repeat xrays 08/21 and did not feel that the patient had an acute fracture. OCL was removed, WBAT to LLE with activities as tolerated and f/u prn recommended. The patient has now been transferred to SNF for therapy and strengthening prior to return to his [facility] apartment. Of note, the patient had a prolonged hospitalization at [facility] 04/22-05/13/2024 following a fall. He was diagnosed and treated for rhabdomyolysis, a retroperitoneal hematoma requiring blood transfusion, T10-T11 fractures/ligamentous injury, UTI (enterococcus faecalis) and had a negative syncopal work-up. He transferred to for skilled therapy with ultimate transition to the [facility] unit here in mid-May. Prior to this fall, he had been living independently in a condo/guadalupe alone in [place]. He was IND with mobility and ADLs up until his fall in April. He reports he has had significant swelling to his LE since the fall (left > right) as well as left leg weakness which has worsening since falling in July. He wore a TLSO brace until mid-June related to his recent thoracic spine injury. Since moving to [place], he has been MOD IND for mobility with WW and mostly IND with ADLs. The patient is a good historian. He is sitting up in his bedside chair today. He currently denies pain to the LLE. It is the weakness that persists to the LE that seems to frustrate him. He is, otherwise, feeling well without new complaints or concerns. No nursing concerns. PCP Trevin since moving to [place] in May - prior to living at , he was followed by Dr. Adela Zurita status is DNRPOA is daughter, Flor Ocampo, [address] [place], [address], [facility] 08/30/2024 07:14:01 08/31/2024 text/html F/U fall with le ft leg pain/injury, weakness, and chronic medical conditions.---08/27/24 The patient is a good historian. He is sitting up in his bedside chair today. He currently denies pain to the LLE. It is the weakness that persists to the LE that seems to frustrate him. He is, otherwise, feeling well without new complaints or concerns. No nursing concerns.---08/31/24B kira is seated in his recliner in his room with his BLE elevated. He is without concerns today, tells me he feels he is making decent progress with therapy. He is unconcerned with his BLE edema at present, tells me it looks pretty good, and that staff are applying compression daily with success. VSS. Staff is without concerns today. Per therapy notes on 08/30: Conducted gait training with FWW 75' CGA with cues for lateral sway and step continuity. No LOB this date Alcira Aguayo, ION [address] [place], [address], [facility] 08/31/2024 13:22:26 09/04/2024 text/html F/U fall with le ft leg pain/injury, weakness, and chronic medical conditions.---08/27/24 The patient is a good historian. He is sitting up in his bedside chair today. He currently denies pain to the LLE. It is the weakness that persists to the LE that seems to frustrate him. He is, otherwise, feeling well without new complaints or concerns. No nursing concerns.---08/31/24B kira is seated in his recliner in his room with his BLE elevated. He is without concerns today, tells me he feels he is making decent progress with therapy. He is unconcerned with his BLE edema at present, tells me it looks pretty good, and that staff are applying compression daily with success. VSS. Staff is without concerns today. Per therapy notes on 08/30: Conducted gait training with FWW 75' CGA with cues for lateral sway and step continuity. No LOB this date ---09/04/24Bruce is seated in his recliner, doing well, without reports of pain but does note the new formation of a fever blister to his upper lip. He believes it appeared sometime overnight and is not overly bothersome, but would like some topical treatment for it. He does not routinely get these as OP. He otherwise feels he is doing well. He notes his edema is looking better and tells me he typically weights around 235-240 lbs. VSS. Staff is without concerns. Alcira Aguayo, ION [address] [place], [address], [facility] 09/04/2024 14:55:22 09/06/2024 text/html 89 Y/O white lucas e with a history of afib, CKD, HTN, AAA s/p EVAR and falls admitted to [facility] for post acute rehab following a fall at his assisted living apartment which caused left leg pain and weakness. The patient reports he was walking in the hallway outside of his [facility] apartment to get some exercise using his wheeled walker when he lost balance landing onto his left side in mid-July. He reports his left foot landed beneath him as he went down. He had mild discomfort but was able to bear weight following the fall. Xrays were done at [facility] several days after the fall which were concerning for a possible fracture of the foot. So, he was sent to [facility] 08/10/2024 for further evaluation. He was placed in a posterior OCL split, made non weight bearing and scheduled to see orthopedics 08/21. He was seen by PA, Caesar Villegas, with [facility] who did repeat xrays 08/21 and did not feel that the patient had an acute fracture. OCL was removed, WBAT to LLE with activities as tolerated and f/u prn recommended. The patient has now been transferred to SNF for therapy and strengthening prior to return to his [facility] apartment. Of note, the patient had a prolonged hospitalization at [facility] 04/22-05/13/2024 following a fall. He was diagnosed and treated for rhabdomyolysis, a retroperitoneal hematoma requiring blood transfusion, T10-T11 fractures/ligamentous injury, UTI (enterococcus faecalis) and had a negative syncopal work-up. He transferred to for skilled therapy with ultimate transition to the [facility] unit here in mid-May. Prior to this fall, he had been living independently in a condo/guadalupe alone in [place]. He was IND with mobility and ADLs up until his fall in April. He reports he has had significant swelling to his LE since the fall (left > right) as well as left leg weakness which has worsening since falling in July. He wore a TLSO brace until mid-June related to his recent thoracic spine injury. Since moving to [place], he has been MOD IND for mobility with WW and mostly IND with ADLs. PCP Trevin since moving to [place] in May - prior to living at , he was followed by Dr. Adela Zurita status is DNRPOA is daughter, Flor---08/27/24The patient is a good historian. He is sitting up in his bedside chair today. He currently denies pain to the LLE. It is the weakness that persists to the LE that seems to frustrate him. He is, otherwise, feeling well without new complaints or concerns. No nursing concerns.---08/31/24B kira is seated in his recliner in his room with his BLE elevated. He is without concerns today, tells me he feels he is making decent progress with therapy. He is unconcerned with his BLE edema at present, tells me it looks pretty good, and that staff are applying compression daily with success. VSS. Staff is without concerns today. Per therapy notes on 08/30: Conducted gait training with FWW 75' CGA with cues for lateral sway and step continuity. No LOB this date ---09/04/24Tom is seated in his recliner, doing well, without reports of pain but does note the new formation of a fever blister to his upper lip. He believes it appeared sometime overnight and is not overly bothersome, but would like some topical treatment for it. He does not routinely get these as OP. He otherwise feels he is doing well. He notes his edema is looking better and tells me he typically weights around 235-240 lbs. VSS. Staff is without concerns.---09/06/24 kira is doing well today, in good spirits, looking forward to discharging back to his [facility] apartment on 09/08. He notes near-resolution of his fever blister with the application of Abreva. He is without concerns regarding his upcoming discharge. He continues to think his edema to his BLE is improving. VSS. BPs do remain labile at times. Staff is without concerns today. Per therapy notes on 09/05: Conducted gait training with FWW ~100' CGA cues for turns and left heel strike. Alcira Aguayo, ION [address] [facility], [place], [address], [place] [facility] 09/06/2024 14:45:19
--- OUTSIDE RECORDS SUMMARY | 2024-10-12 22:07 | XMS_ITS | Clinical Summary ---
Author Organization [facility] at the [facility] Address [address] [place] [address] Care Team Providers Care Development Educator Name Role Phone Aleks Treviño MD Primary Care Provider [phone] Abdi Page MD Unavailable [phone] Allergies Active Allergy Reactions Criticality Noted Date [...] & Plan (05/14/2024 9:39 AM CDT): - [facility] [place] Spine consult (Dr. Greer) - MRI thoracic spine 04/24: acute traumatic distraction injury at T10-T11 with interruption of the anterior longitudinal ligament, intervertebral disc and possible involvement of the ligamentum flavum/interspinous ligament - TLSO at all times - spinal precautions, HOB > 30 - PT/OT, pain control Assessment & Plan (04/26/2024 1:43 PM CDT): - [facility] [place] Spine consult (Dr. Greer) - MRI thoracic [...] IM (MDV) 05/27/2022 Pneumococcal Polysaccharide PPV23 05/24/2019 Surgical History Surgery Date Site/Laterality Comments ABDOMINAL AORTIC ANEURYSM REPAIR 09/20/2015 - 09/19/2016 TOTAL HIP ARTHROPLASTY 09/20/2008 - 09/19/2009 Left HEART SURGERY 09/20/2014 - 09/19/2015 Medical History Medical History Date Comments Hypertension Hypercholesterolemia Arthritis Atrial fibrillation (CMS/HCC) (HCC) 10/31/2021 CKD (chronic kidney disease) Family History Medical History Relation Name Comments Pancreatic cancer Father Heart disease Mother Heart failure Mother Hypertension Mother Colon cancer Other Relation Name Status Comments Father Mother Other Social History Tobacco Use Types Packs/Day Years Used Date Smoking Tobacco: Former Tobacco Cessation:Counseling Given: No HMP Communicationsities Answer Date Recorded In the past 12 months has [facility] Revision3, gas, oil, or water Dailyevent threatened to shut off services in your [...] 05/02/2024 How often do you attend chur ch or congregational services? More than 4 times per year 05/02/2024 Do you belong to any clubs o r organizations such as advent groups, unions, fraternal or athletic groups, or [...] and heating? Not hard at all 05/02/2024 [facility] - Occupational Stress [...] any time in the past 12 m [facility], were you homeless or living in a prison (including now)? No 05/02/2024 Personal Safety Answer Date Recorded Have you ever been in or are you currently in a harmful physical or emotional relationship or is someone making you feel afraid or unsafe? 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 Gender Identity Not on file Sexual Orientation Not on file Obstetrics History Last Filed Vital Signs Vital Sign Reading [...] 06/23/2024 10:18 AM CDT Plan of Treatment Health Maintenance Due Date Last Done Comments Depression Screening 1935 DTaP/Tdap/Td Vaccine (1 - Tdap) 02[birth year]18/1946 Hepatitis B Screening 1953 Zoster Vaccine (1 of 2) 1987 Well Visit 65+ 2002 Pneumococcal vaccine 65+ (2 of 2 - PCV) 05/24/2020 05/24/2019 Influenza Vaccine (#1) 2024 2, 05/24/2019, 06/02/2018, Additional history exists Fall Risk Assessment 05/16/2025 05/16/2024 Additional Health Concerns Infection Onset 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 04/29/2024 Insurance MEDICARE [facility] Address: [place] [id number] MEDICARE [facility] Address: [place] [address] MEDICARE [facility] Address: [address] [address] [place] [address] Advance Directives For more information, please contact: [phone] Documents on File Type Date Recorded 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
--- OUTSIDE RECORDS SUMMARY | 2024-10-12 22:07 | XMS_ITS | Encounter Summary ---
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 Historical Provider Final Res ult documented in this encounter Visit Diagnoses Not on filedocumented in this encounter Additional Health Concerns Infection Onset Date Last Indicated Resolved Time Ring Surveillance 04/26/2024 04/26/2024 04/30/2024 3:44 PM CDT Daisy auris, Exposure Comment:04/30/2024 IP Review: pt C.auris positive. Appropriate flag added. Lisandra C. Burt, RN 04/28/2024- Patient exposed to C. Auris positive patient on 04/28/2024. Patient will need to be swabbed on 04/29 and 05/01. Please contact infection prevention for instructions on obtaining surveillance cultures. Ashley Linda 04/28/2024 04/28/2024 04/30/2024 3:44 PM C DT 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 04/29/2024 documented as of this encounter Care Teams Inside Account Representative Relationship Specialty Start Date End Date Aleks Treviño MD PCP - General 02/21/15 Abdi Page MD [address] [facility] [address] [place] [address] Surgeon Vascular Surgery 01/11/23 documented as of this encounter
== END 2024-10-11 08:54 | disposition home or self-care (01) ==
PROVIDERS: PCP Family Medicine; Visit Provider Family Medicine
DX: R60.0 Localized edema (principal); R20.0 Anesthesia of skin; G62.9 Polyneuropathy, unspecified
CPT/HCPCS: 95886; 95910

== ENCOUNTER 2025-01-13 10:06 | Emergency (ER) | payer MEDICARE, SELFPAY ==
--- NOTE | ~2025-01-13 | CT_ITS ---
EXAMINATION: CT brain wo con DATE: 01/13/2025 10:42 INDICATION: Head injury TECHNIQUE: Computed tomography (CT) of the head was performed without intravenous contrast. Sagittal and coronal reconstructions were performed. The mA was adjusted according to patient size. Iterative reconstruction technique was employed. The dose-length product was 681.00 mGy-cm. COMPARISON: head CT dated 09/22/2024 FINDINGS: Moderate-sized right occipital hematoma centered slightly to the right of midline. No fracture. 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 No acute intracranial hemorrhage, acute infarction or abnormal extra axial fluid co llection. There is mild scattered white matter hypoattenuation consistent with chronic small vessel i schemic disease. Symmetric prominence of the sulci consistent with mild age-appropriate diffuse cereb ral volume loss. Ventricles are normal and symmetric. No mass/mass effect. Changes of bilateral intra ocular lens replacement. The orbits and mastoid air cells are normal. Mild mucosal thickening in the bilateral maxillary sinuses. IMPRESSION: 1. Right parieto-occipital scalp hematoma. No fracture or acute intracranial process. 2. Age-related changes of brain and small old lacunar infarct at the right basal ganglia. Reviewed, dictated and finalized at location A. IMPRESSION: 1. Right parieto-occipital scalp hematoma. No fracture or acute intracranial pr ocess. 2. Age-related changes of brain and small old lacunar infarct at the right basa l ganglia.
[2025-01-13 10:08] VITALS: BP 207/87; PULSE 55; RESP 17; TEMP 36.4; O2SAT 96
--- OUTSIDE RECORDS SUMMARY | 2025-01-13 10:15 | XMS_ITS | Referral Summary ---
Author Organization [facility] Address [address] [place] [address] Care Team Providers Care Skidder Operator Name Role Phone Abdi Page MD Unavailable [phone] Mateo Zhong MD Primary Care Provider [phone] Encounters Date Type Department Care Team Description 12/28/2024 Telephone [facility] Vascular and Vein Surgery [address] [place] [phone] Diana Cueto MA 12/13/2024 1:00 PM CDT - 12/13/2024 2:00 PM CDT Surgery [facility] Cardiac Finishing Machine Operator [address] [place] [phone] Abdi Page MD Discontinued Vasc Case Pre Proc 12/13/2024 10:40 AM CDT - 12/13/2024 1:18 PM CDT Hospital Encounter [facility] Cardiac Finishing Machine Operator [address] [place] [phone] Abdi Page MD Type II endoleak of aortic graft; Other disorder of circulatory system Discharge Disposition: Discharge to home or self care 12/06/2024 Telephone [facility] Vascular and Vein Surgery [address] [place] [phone] Abdi Page MD 12/06/2024 10:15 AM CDT Office Visit [facility] Vascular and Vein Surgery [address] [place] [address] Azra Jimenez NP 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); Other hyperlipidemia; Essential hypertension 11/30/2024 1:04 PM CDT - 11/30/2024 11:59 PM CDT Hospital Encounter [facility] CT [address] [place] [address] Type II endoleak of aortic graft Discharge Disposition: Discharge to home or self care 11/29/2024 Orders Only [facility] Vascular and Vein Surgery [address] [place] [address] Abdi Page MD Personal history of allergy to contrast media (used for diagnostic x-rays) (Primary Dx) from Last 3 Months Allergies Active Allergy Reactions Criticality Noted Date [...] 2 (two) times a day 4 Active predniSONE (DELTASONE) 50 mg tabletIndication s:Personal history of allergy to contrast media (used for diagnostic x-rays) Take 1 tab 13 hours, 7 hours and 1 hour prior to scan along with 50 MG Benadryl. 3 tablet 5 Active Additional Information Patient not taking.Reported on 12/06/2024 escitalopram (LEXAPRO) 10 mg tablet Take 1 tablet (10 mg total) by mouth daily Active TiZANidine (ZANAFLEX) 2 mg capsule Take 1 capsule (2 mg total) by mouth 3 (three) times a day Active busPIRone (BUSPAR) 15 mg tabletIndication s:Generalized Anxiety Disorder Take 1 tablet (15 mg total) by mouth 3 (three) times a day Active carbamide peroxide (DEBROX) 6.5 % otic solutionIndicati ons:Impacted Cerumen 5 drops 2 (two) times a day Active predniSONE (DELTASONE) 50 mg tablet Take 1 tablet (50 mg) by mouth daily 3 tablet 5 Active Active Problems Problem Noted Date Diagnosed Date Anemia 05/11/2024 Assessment & Plan (05/14/2024 9:38 AM CDT): - 05/11: Hgb 7.4 - 05/12: Hgb 7.2, 1 unit PRBCs transfused. Post transfusion Hgb 8.7 - CBC q48 Assessment & Plan (05/13/2024 9:03 AM CDT): - 05/11: Hgb 7.4 - [...] f/u post transfusion cbc -05/13-: Pending placement Fall 04/25/2024 Assessment & Plan [...] & Plan (05/14/2024 9:39 AM CDT): - NSGY Spine consult (Dr. 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 Greer) - MRI thoracic [...] F/u post transfusion CBC. If ok lab hol -05/13: Hgb 8.7 - Consider transfusion for [...] of aortic graft 02/22/2023 Assessment & Plan (12/06/2024 3:00 PM CDT): Aneurysmal sac now currently measuring 6.8 x 6.5 cm on current duplex. Reviewed imaging with Dr. Page. Patient will need to have an aortogram with potential intervention/coil embolization. Discussed procedure with the patient and family members who are present. Discussed potential risks and answered all questions to their satisfaction. They are agreeable wished to proceed. Patient does have an allergy to contrast dye previously given prednisone before. He will need to follow allergy to contrast dye protocol. Assessment & Plan (05/14/2024 9:39 AM CDT): [...] unknown significance (M ADRIANA) 05/22/2022 01/11/2023 A-fib 03/31/2022 Assessment & Plan (05/09/2024 2:11 PM CDT): - on home Eliquis 2.5 BID, metoprolol 25 mg BID - last dose of Eliquis 04/22 AM - Off amiodarone gtt - Resumed [...] 04/24/2021 Osteoarthritis 04/23/2021 Osteoarthritis of right hip 03/11/202101/20 Other hyperlipidemia 12/10/2020 Assessment & Plan (01/27/2023 [...] asymptomatic. Last surveillance CTA was performed in 2015. Plan: Obtain CTA abdomen pelvis to evaluate previous endovascular repair of an infrarenal AAA. Patient follow-up in 1 month for discussion of test results. Immunizations Immunization Administration Dates Next Due Influenza Virus Vaccine Trivalent Mdv 07/14/2017 Influenza, Quadrivalent, Rec ombinant, Egg Free, Preservative Free, Intramuscular 05/24/2019 Influenza, Trivalent, Adjuvanted, Intramuscular 07/14/2017 Influenza, Trivalent, High D ose, Split, Preservative Free, Intramuscular 06/02/2018,06/30/2015 Influenza, Trivalent, IM (MDV) 05/27/2022 Pneumococcal Polysaccharide PPV23 05/24/2019 Social History Tobacco Use Types Packs/Day Years Used Date Smoking Tobacco: Former Tobacco Cessation:Counseling Given: No [facility] Utilities Answer Date Recorded In the past 12 months has [facility] [employer], oil, or water [employer] threatened to shut off services in your [...] How often do you attend chur or baptism services? More than 4 times per year 05/02/2024 Do you belong to any clubs o r organizations such as buddhist groups, unions, fraternal or athletic groups, or school groups? No 05/02/2024 How often do you attend meet ings of the clubs or organizations you belong to? Never 05/02/2024 Are you , , di vorced, , never , or living with a partner? 05/02/2024 AUDIT-C Answer Date Recorded Q1: How often do you have a drink containing alcohol? Never 12/13/2024 Q2: How many drinks containi ng alcohol do you have on a typical day when you are drinking? Patient does not drink Q3: How often do you have si x or more drinks on one occasion? Never 12/13/2024 Overall Financial Resource Strain (CARDIA) Answe r Date Recorded How hard is it for you to pa y for the very basics like food, housing, medical care, and heating? Not hard at all 05/02/2024 [facility] [place] [facility] - Occupational Stress [...] any time in the past 12 m [facility], were you homeless or living in a long term (including now)? No 05/02/2024 Personal Safety Answer Date Recorded Have you ever been in or are you currently in a harmful physical or emotional relationship or is someone making you feel afraid or unsafe? 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[employer] Gender Identity Not on file Sexual Orientation Not on file Last Filed Vital Signs Vital Sign Reading Time Taken Comments Blood Pressure 196/91 12/13/2024 11:30 AM CDT Pulse 58 12/13/2024 11:30 AM CDT Temperature 36.5 C (97.7 F) 05/16/2024 8:52 AM CDT Respiratory Rate 12 12/13/2024 11:30 AM CDT Oxygen Saturation 98% 12/13/2024 11:20 AM CDT Inhaled Oxygen Concentration - - Weight 113.9 kg (251 lb) 12/06/2024 10:02 AM CDT Height 182.9 cm (6') 12/06/2024 10:02 AM CDT Body Mass Index 34.04 12/06/2024 10:02 AM CDT Plan of Treatment Not on file Procedures Procedure Name Priority Date/Time Associated Diagnosis Comments DISCONTINUED VASC CASE PRE PROC (DEF ORD) Routine 12/13/2024 1:15 PM CDT Type II endoleak of aortic graft B ABO / RH CONFIRMATION TESTING STAT 12/13/2024 11:34 AM CDT EGFR STAT 12/13/2024 11:04 AM CDT Type II endoleak of aortic graft DIFFERENTIAL AUTO STAT 12/13/2024 11: 04 AM CDT Type II endoleak of aortic graft ANTIBODY SCREEN STAT 12/13/2024 11:04 AM CDT Type II endoleak of aortic graft ABO/RH STAT 12/13/2024 11:04 AM CDT Type II endoleak of aortic graft PROTIME-INR Routine 12/13/2024 11:04 AM CDT Type II endoleak of aortic graft Other disorder of circulatory system TYPE AND SCREEN STAT 12/13/2024 11:04 AM CDT Type II endoleak of aortic graft COMPREHENSIVE METABOLIC PANEL STAT 12/13/2024 11:04 AM CDT Type II endoleak of aortic graft CBC WITH AUTO DIFFERENTIAL STAT 12/13/2024 11:04 AM CDT Type II endoleak of aortic graft APTT STAT 12/13/2024 11:04 AM CDT Type II endoleak of aortic graft Other disorder of circulatory system CTA ABDOMEN PELVIS W WO CONTRAST Schedule Routine, Read Routine (OP Routine) 11/30/2024 1:15 PM CDT Type II endoleak of aortic graft from Last 3 Months Results * DISCONTINUED VASC CASE PRE PROC (12/13/2024 1:15 PM CDT) Anatomical Region Laterality Modality X-Ray Angiograph y Narrative 12/13/2024 1:16 PM CDT Please see OpNote for result. us Abdi Page MD CV CARDIAC CATH PROCEDURES Final Result * ABO / Rh Confirmation Testing (12/13/2024 11:34 AM CDT) ABO/Rh Confirmation A Positive MHB Blood 12/13/2024 11:3 4 AM CDT 12/13/2024 11:38 AM CDT us Abdi Page MD LAB BLOOD ORDERABLES Final Result Performing Organization Address City/State/[facility] Co de Phone Number [facility] [address] Department [place] [address] [facility] * (ABNORMAL) eGFR (12/13/2024 11:04 AM CDT) eGFR 51(L) >=60 mL/min/1. 73 m2 Comment: Interpretive Data Reference Interval Normal >/= 90 mL/min/1.73m2 Mildly decreased* 60 - 89 mL/min/1.73m2 Mildly to moderately decreased 45 - 59 mL/min/1.73m2 Moderately to severely decreased 30 - 44 mL/min/1.73m2 Severely decreased 15 - 29 mL/min/1.73m2 Kidney Failure < 15 mL/min/1.73m2 *Relative to young adult level Estimated glomerular filtration rate is determined by the 2020 CKD-EPI equation recommended by the National Kidney Foundation (A Unifying Approach to GFR Estimation: Recommendations of the NKF-ASK Task Force on Reassessing the Inclusion of Race in Diagnosing Kidney Disease, JASN 2020). The CKD-EPI equation should not be used for patients with unstable renal function and has not been validated in children and those over 70. Current interpretive data was last reviewed 2021. Blood 12/13/2024 11:0 4 AM CDT 12/13/2024 11:07 AM CDT us Abdi Page MD LAB BLOOD ORDERABLES Final Result [facility] [address] Department [place] [address] * (ABNORMAL) Differential, auto (12/13/2024 11:04 AM CDT) Neutrophil abs 5.6 1.5 - 6.5 K/cumm Imm gran abs 0.0 0.0 - 0.1 K/cumm [facility] Lymphocyte abs 1.3 0.8 - 3.3 K/cumm [facility] Monocyte abs 0.1(L) 0.2 - 0.8 K/cumm [facility] Eosinophil abs 0.0 0.0 - 0.5 K/cumm [facility] Basophil abs 0.0 0.0 - 0.1 K/cumm [facility] Neutrophil pct 80.0 % [facility] Comment: Interpretive Data Percent cell count reference ranges are not reported, since discordance with absolute values may lead to misinterpretation of CBC data. Current Interpretive Data was last revised on 2017. Imm gran pct 0.1 % [facility] Comment: Interpretive Data Percent cell count reference ranges are not reported, since discordance with absolute values may lead to misinterpretation of CBC data. Current Interpretive Data was last revised on 2017. Lymphocyte pct 19.1 % [facility] Comment: Interpretive Data Percent cell count reference ranges are not reported, since discordance with absolute values may lead to misinterpretation of CBC data. Current Interpretive Data was last revised on 2017. Monocyte pct 0.7 % [facility] Comment: Interpretive Data Percent cell count reference ranges are not reported, since discordance with absolute values may lead to misinterpretation of CBC data. Current Interpretive Data was last revised on 2017. Eosinophil pct 0.0 % [facility] Comment: Interpretive Data Percent cell count reference ranges are not reported, since discordance with absolute values may lead to misinterpretation of CBC data. Current Interpretive Data was last revised on 2017. Basophil pct 0.1 % [facility] Comment: Interpretive Data Percent cell count reference ranges are not reported, since discordance with absolute values may lead to misinterpretation of CBC data. Current Interpretive Data was last revised on 2017. Blood 12/13/2024 11:0 4 AM CDT 12/13/2024 11:07 AM CDT Abdi Page MD LAB BLOOD ORDERABLES Final Result Performing Organization Address City/[facility]/ZIP Co de Phone Number [facility] [address] [place] [address] * (ABNORMAL) CBC with auto differential (12/13/2024 11:04 AM CDT) WBC 7.0 3.8 - 9.9 K/cumm Hgb 13.4 13.0 - 17.5 g/dL [facility] Hct 40.6 38.9 - 50.3 % [facility] Plt 187 150 - 400 K/cumm [facility] MPV 10.4 9.1 - 12.3 fL [facility] RBC 4.06(L) 4.30 - 5.80 M/cumm [facility] MCV 100.0(H) 81.3 - 96.4 fL [facility] MCH 33.0 27.1 - 33.3 pg [facility] MCHC 33.0 32.3 - 35.7 g/dL [facility] RDW CV 13.2 11.1 - 14.9 % [facility] RDW SD 48.3(H) 35.7 - 48.1 fL [facility] NRBC abs 0.00 0.00 - 0.01 K/cumm [facility] Blood 12/13/2024 11:0 4 AM CDT 12/13/2024 11:07 AM CDT Narrative [facility] - 12/13/2024 11:09 AM CDT If most recent labs were drawn prior to 4 AM, draw only prior to initiating procedure. Abdi Page MD LAB BLOOD ORDERABLES Final Result Performing Organization Address City/[facility]/ZIP Co de Phone Number [facility] [address] [place] [address] * ABO/Rh (12/13/2024 11:04 AM CDT) ABO/Rh A Positive Blood 12/13/2024 11:0 4 AM CDT 12/13/2024 11:07 AM CDT Narrative [facility] - 12/13/2024 11:45 AM CDT Has the patient had Daratumumab or Isatuximab in the past 6 months?->Unknown Abdi Page MD LAB BLOOD BANK TEST ORDERA BLES Final Result Performing Organization Address [facility] Co de Phone Number [address] [place] [address] * aPTT (12/13/2024 11:04 AM CDT) Pathologist [facility] aPTT 27 22 - 37 sec Comment: Interpretive data aPTT test has not been evaluated for monitoring heparin therapy. The anti-Xa is the preferred test. Current interpretive data was last revised on 2019. Blood 12/13/2024 11:0 4 AM CDT 12/13/2024 11:07 AM CDT Abdi Page MD LAB BLOOD ORDERABLES Final Result Performing Organization Address [facility] Co de Phone Number [address] [place] [address] * Protime-INR (12/13/2024 11:04 AM CDT) PT 14.2 12.0 - 14.6 sec INR 1.1 0.9 - 1.2 [facility] Comment: Ref Range High Interpretive data Oral anticoagulant therapeutic ranges: Venous thromboembolism prophylaxis or treatment: 2.0-3.0 CARDIOLOGY Standard range: 2.0-3.0 High-intensity range: 2.5-3.5 Refer to indication-specific guidelines for appropriate target ranges for prosthetic heart valve replacement. Current interpretive data was last revised on 2019. Blood 12/13/2024 11:0 4 AM CDT 12/13/2024 11:07 AM CDT Abdi Page MD LAB BLOOD ORDERABLES Final Result Performing Organization Address [facility] de Phone Number [facility] [address] [address] * Antibody screen (12/13/2024 11:04 AM CDT) [facility] [address] Saurav, indirect, Gel Interpretation Negative ABSC Blood 12/13/2024 11:0 4 AM CDT 12/13/2024 11:07 AM CDT Narrative [facility] - 12/13/2024 11:46 AM CDT Has the patient had Daratumumab or Isatuximab in the past 6 months?->Unknown Abdi Page MD LAB BLOOD BANK TEST ORDERA BLES Final Result Performing Organization Address [facility] de Phone Number HA[address] [address] * (ABNORMAL) Comprehensive metabolic panel (12/13/2024 11:04 AM CDT) [facility] [address] Sodium 138 135 - 145 mmol/L Potassium, pl 4.3 3.3 - 4.9 mmol/L [facility] Chloride 104 97 - 110 mmol/L [facility] CO2 26 22 - 32 mmol/L [facility] Anion gap 8 2 - 15 mmol/L [facility] BUN 22 6 - 25 mg/dL [facility] Creatinine 1.34(H) 0.80 - 1.30 mg/dL [facility] Glucose 149 70 - 199 mg/dL [facility] Comment: Interpretive Data Fasting glucose >/= 126 mg/dl is diagnostic for diabetes. Fasting is defined as no caloric intake for at least 8 hours. Fasting glucose between 100 mg/dl to 125 mg/dl is diagnostic of prediabetes. In a patient with classic symptoms of hyperglycemia or hyperglycemic crisis, a random glucose >/= 200 mg/dl is diagnostic for diabetes. In the absence of unequivocal hyperglycemia, results should be confirmed by repeat testing. The classification and Diagnosis of Diabetes Diabetes Care 202; 46: S19-S40. Current interpretive data was last revised 2022. Calcium 10.5(H) 8.5 - 10.3 mg/dL [facility] Bilirubin, total 0.6 0.1 - 1.2 mg/dL [facility] Protein, pl 6.9 6.5 - 8.5 g/dL [facility] Albumin 3.7 3.5 - 5.0 g/dL [facility] Alk phos 68 40 - 130 Units/L [facility] ALT 13 7 - 55 Units/L [facility] AST 17 10 - 50 Units/L [facility] Blood 12/13/2024 11:0 4 AM CDT 12/13/2024 11:07 AM CDT us Abdi Page MD LAB BLOOD ORDERABLES Final Result Performing Organization Address City/State/[facility] Co de Phone Number [facility] [address] Department [place] [address] * CTA Abdomen Pelvis (11/30/2024 1:15 PM CDT) Anatomical Region Laterality Modality Body N/A Computed Tomogra phy 12/06/2024 8:13 AM CDT Narrative 12/06/2024 8:34 AM CDT EXAM DESCRIPTION: CTA ABDOMEN PELVIS REASON FOR STUDY: Type 2 endoleak w/ no definitive sac growth last exam 02/17/23 Spoke to office staff to verify pre-meds @1520. They were going to call patient with info and get meds ordered jks Type 2 endoleak w/ no definitive sac growth last exam 02/17/23 Dx: Type II endoleak of aortic graft I97.89 TECHNIQUE: CTA scan of the abdomen and pelvis performed without and with intravenous and without oral contrast using helical scanning technique with dynamic intravenous contrast injection. Precontrast, arterial, and portal venous phase images of the abdomen and pelvis were acquired. Images reviewed with lung, soft tissue and bone windows. Reconstructed coronal and sagittal MPR images reviewed. All images stored on PACS. 3D MIP images rendered on scanning unit and reviewed at time of interpretation. Automated exposure control was used as a dose optimization technique for this examination. CONTRAST TYPE/DOSE: 94mL of IOVERSOL 350 MG IODINE/ML INTRAVENOUS SYRINGE injected via intravenous COMPARISON: 02/12/2023, 11/23/2023 REFERENCE: Unless otherwise specified, no follow-up imaging is recommended for incidental renal and adrenal lesions per consensus recommendations based on imaging criteria. Further lab evaluation could be pursued based on clinical findings. Management of the Incidental Renal Mass on CT: A White Paper of the ACR Incidental Findings Committee. J Am Fiona Radiol. 2018 Oct;15(2):264-273. Management of Incidental Adrenal Masses: A White Paper of the ACR Incidental Findings Committee. J Am Fiona Radiol. 2017 Apr;14(8):3939-6278. FINDINGS: VASCULATURE: AORTA: Multifocal atherosclerotic changes of the thoracoabdominal aorta and its major branches. Postsurgical changes status post aorto bi-iliac endovascular stent graft repair of infrarenal abdominal aorta. Stent graft extends from the infrarenal aorta to just proximal to the iliac bifurcation bilaterally. Stent graft grossly patent. Persistent contrast blush within the anterior and lateral aspect of the inferior aneurysm sac suggestive of persistent endoleak, likely type 2 endoleak (such as series 5, image 130 and series 10, image 68). Endoleak may be secondary to retrograde flow from the KIAN. When compared to 11/23/2023, there is interval increase in size of the excluded aneurysm sac now measuring 6.8 x 6.5 cm, previously 6.2 x 5.7 cm when measured similarly. Additionally, the craniocaudal extent of the excluded aneurysm is increased now measuring 6.1 cm, previously 5.4 cm (series 8, image 74). CELIAC TRUNK: No flow limiting stenosis, dissection, or aneurysm. 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 No flow-limiting stenosis or aneurysm. RIGHT RENAL ARTERY: No flow limiting stenosis, dissection, or aneurysm. LEFT RENAL ARTERY: No flow limiting stenosis, dissection, or aneurysm. INFERIOR MESENTERIC ARTERY: Excluded proximally by the stent graft. Distally reconstituted. ILIAC ARTERIES: Patent endovascular stent graft. No flow-limiting stenosis or aneurysm. LOWER CHEST: Mitral annulus calcifications. Coronary atherosclerotic calcifications. LIVER: Unchanged probable segment 2 cyst/hemangioma measuring up to 1.2 cm. Additional subcentimeter hypodensities which are too small to further characterize but grossly unchanged from prior. GALLBLADDER/BILE DUCTS: No significant biliary ductal dilatation. SPLEEN: Normal size. No focal concerning lesions. PANCREAS: No significant ductal dilatation or discrete lesion. ADRENALS: No measurable nodule. KIDNEYS/URETERS: Subcentimeter hyperdense hemorrhagic/proteinaceous cyst in the right superior renal pole (4; 48). Similar-appearing bilateral simple cysts. Numerous additional subcentimeter hypodensities which are too small to further characterize. No hydronephrosis. BLADDER: Distended but thin-walled. REPRODUCTIVE: No significant abnormality. GASTROINTESTINAL: Colonic diverticulosis without acute inflammation. Normal-appearing appendix. No significant wall thickening. No significant bowel distention. Similar-appearing prominent periampullary duodenal diverticulum with air-fluid level (10; 47). No significant adjacent inflammatory changes. LYMPH NODES: No pathologically enlarged abdominal or pelvic lymphadenopathy. PERITONEUM/RETROPERITONEUM: No ascites or free air. VASCULATURE: As above. Grossly patent portal vein. MUSCULOSKELETAL: Postsurgical changes status post bilateral total hip arthroplasties. No definite acute hardware complication. Diffuse bone demineralization. Multilevel degenerative changes of the visualized spine. Bilateral gynecomastia. Mild heterogeneous sclerosis of the L1 could reflect healed mild compression deformity. Grade 1 anterolisthesis of L3 on L4 and L4 on L5. No acute displaced fracture. No definite aggressive appearing osseous lesion. OTHER: No significant abnormality. 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 Interval increase in size of the excluded aneurysm sac now measuring up to 6.8 cm, previously 6.2 cm. Additional incidental and chronic findings as above. THIS IS AN ELECTRONICALLY VERIFIED FINAL REPORT 12/06/2024 8:34 AM - Electronically signed by Emmanuel SIMS T: Report ID: [id number] Reading Location: [id number] Procedure Note Emmanuel Jameson MD - 12/06/2024 EXAM DESCRIPTION: CTA ABDOMEN PELVIS REASON FOR STUDY: Type 2 endoleak w/ no definitive sac growth last exam 02/17/23 Spoke to office staff to verify pre-meds @1520. 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 Precontrast, arterial, and portal venous phase images of the abdomen and pelvis were acquired. Images reviewed with lung, soft tissue and bone windows. Reconstructed coronaland sagittal MPR images reviewed. All images stored on PACS. 3D MIP images rendered on scanning unit and reviewed at time of interpretation.Automated exposure control was used as a dose optimization technique for this examination. CONTRAST TYPE/DOSE: 94mL of IOVERSOL 350 MG IODINE/ML INTRAVENOUSSYRINGE injected via intravenous COMPARISON: 02/12/2023, 11/23/2023 REFERENCE: Unless otherwise specified, no follow-up imaging is recommendedfor incidental renal and adrenal lesions per consensus recommendations basedon imaging criteria. Further lab evaluation could be pursued based onclinical findings. Management of the Incidental Renal Mass on CT: A White Paper of the ACR Incidental Findings Committee. J Am Fiona Radiol. 2018 Oct;15(2):264-273. Management of Incidental Adrenal Masses: A White Paper of the ACRIncidental Findings Committee. J Am Fiona Radiol. 2017 Apr;14(8):5275-2689. FINDINGS: VASCULATURE: AORTA: Multifocal atherosclerotic changes of the thoracoabdominal aortaand its major branches. Postsurgical changes status post aorto bi-iliac endovascular stent graft repair of infrarenal abdominal aorta. Stentgraft extends from the infrarenal aorta to just proximal to the iliacbifurcation bilaterally. Stent graft grossly patent. Persistent contrast blushwithin the anterior and lateral aspect of the inferior aneurysm sac suggestive of persistent endoleak, likely type 2 endoleak (such as series 5, image 130and series 10, image 68). Endoleak may be secondary to retrograde flow fromthe KIAN. When compared to 11/23/2023, there is interval increase in size ofthe excluded aneurysm sac now measuring 6.8 x 6.5 cm, previously 6.2 x 5.7 cmwhen measured similarly. Additionally, the craniocaudal extent of the excluded aneurysm is increased now measuring 6.1 cm, previously 5.4 cm (series 8,image 74). CELIAC TRUNK: No flow limiting stenosis, dissection, or aneurysm. SUPERIOR MESENTERIC ARTERY: Replaced right hepatic artery from the SMA.No flow-limiting stenosis or aneurysm. RIGHT RENAL ARTERY: No flow limiting stenosis, dissection, or aneurysm. LEFT RENAL ARTERY: No flow limiting stenosis, dissection, or aneurysm. INFERIOR MESENTERIC ARTERY: Excluded proximally by the stent graft.Distally reconstituted. ILIAC ARTERIES: Patent endovascular stent graft. No flow-limitingstenosis or aneurysm. LOWER CHEST: Mitral annulus calcifications. Coronary atherosclerotic calcifications. LIVER: Unchanged probable segment 2 cyst/hemangioma measuring up to 1.2cm. Additional subcentimeter hypodensities which are too small to further characterize but grossly unchanged from prior. GALLBLADDER/BILE DUCTS: No significant biliary ductal dilatation. SPLEEN: Normal size. No focal concerning lesions. PANCREAS: No significant ductal dilatation or discrete lesion. ADRENALS: No measurable nodule. KIDNEYS/URETERS: Subcentimeter hyperdense hemorrhagic/proteinaceous cystin the right superior renal pole (4; 48). Similar-appearing bilateral simple cysts. Numerous additional subcentimeter hypodensities which are toosmall to further characterize. No hydronephrosis. BLADDER: Distended but thin-walled. REPRODUCTIVE: No significant abnormality. GASTROINTESTINAL: Colonic diverticulosis without acute inflammation. Normal-appearing appendix. No significant wall thickening. Nosignificant bowel distention. Similar-appearing prominent periampullary duodenal diverticulum with air-fluid level (10; 47). No significant adjacent inflammatory changes. LYMPH NODES: No pathologically enlarged abdominal or pelviclymphadenopathy. PERITONEUM/RETROPERITONEUM: No ascites or free air. VASCULATURE: As above. Grossly patent portal vein. MUSCULOSKELETAL: Postsurgical changes status post bilateral total hip arthroplasties. No definite acute hardware complication. Diffuse bone demineralization. Multilevel degenerative changes of the visualizedspine. Bilateral gynecomastia. Mild heterogeneous sclerosis of the L1 couldreflect healed mild compression deformity. Grade 1 anterolisthesis of L3 on L4and L4 on L5. No acute displaced fracture. No definite aggressive appearingosseous lesion. OTHER: No significant abnormality. 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 Interval increase in size ofthe excluded aneurysm sac now measuring up to 6.8 cm, previously 6.2 cm. Additional incidental and chronic findings as above. THIS IS AN ELECTRONICALLY VERIFIED FINAL REPORT 12/06/2024 8:34 AM - Electronically signed by Emmanuel Jameson M.D. 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 04/29/2024 Insurance [facility] MEDICARE ADVANTAGE [facility] Address[address] [address] [facility] MEDICARE ADVANTAGE [facility] Address: [address] [address] [place] [address] [employer] MEDICARE ADVANTAGE Advance Directives For more information, please contact: [phone] Documents on File Type Date Recorded Patient Small Piece Cutter Expl anation ADVANCE DIRECTIVE 05/11/2024 1:21 AM POWER OF MOLDER VACUUM-MEDICAL ADVANCE DIRECTIVE 04/24/2024 10:52 AM AD/PO A [...] 1:51 AM 04/23/2024 2:07 AM Care Teams Skidder Operator Relationship Specialty Start Date End Date Mateo Zhong MD [address] [facility] [address] [place] [address] [address] [place] [address] PCP - General Family Medicine 12/06/24 Abdi Page MD [address] [facility] [address] [place] [address] Surgeon Vascular Surgery 01/11/23
--- OUTSIDE RECORDS SUMMARY | 2025-01-13 10:15 | XMS_ITS | Clinical Summary ---
Author Organization [facility] Address [address] [place] [address] Care Team Providers Care Brass Finisher Name Role Phone Abdi Page MD Unavailable [phone] Mateo Zhong MD Primary Care Provider [phone] Allergies Active Allergy Reactions Criticality Noted Date [...] 1 month for discussion of test results. Encounters Date Type Department Care Team Description 12/28/2024 Telephone [facility] Vascular and Vein Surgery [address] [place] [address] Diana Cueto MA 12/13/2024 1:00 PM CDT - 12/13/2024 2:[address] [facility] Cardiac Biomedical Engineering Supervisor [address] [place] [address] Abdi Page MD Discontinued [facility] Case Pre Proc 12/13/2024 10:40 AM CDT - 12/13/2024 1:18 PM CDT Hospital Encounter 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 CT [address] [place] [address] Type II endoleak of aortic graft Discharge Disposition: Discharge to home or self care 11/29/2024 Orders Only [facility] Vascular and Vein Surgery [address] [place] [address] [address] [place] [address] Abdi Page MD Personal history of allergy to contrast media (used for diagnostic x-rays) (Primary Dx) from Last 3 Months Immunizations Immunization Administration Dates Next Due Influenza [...] 09/19/2009 Left HEART SURGERY 09/20/2014 - 09/19/2015 VASCULAR SURGERY PROCEDURE 12/13/2024 N/A Procedure: Discontinued [facility] Case Pre Proc; Surgeon: Abdi Page MD; Location: [facility] CARDIAC SALES AND SERVICE AGENT; Service: Vascular; Laterality: N/A; JULIO (SHOCKWAVE) Medical History Medical History Date Comments Hypertension Hypercholesterolemia Arthritis Atrial fibrillation (HCC) 10/31/2021 CKD (chronic kidney disease) Family History Medical History Relation Name Comments Pancreatic cancer Father Heart disease Mother Heart failure Mother Hypertension Mother Colon cancer Other Relation Name Status Comments Father Mother Other Social History Tobacco Use Types Packs/Day Years Used Date Smoking Tobacco: Former Tobacco Cessation:Counseling Given: No [facility] Utilities Answer Date Recorded In the past 12 months has e [employer], gas, oil, or water [employer] threatened to shut off services in your [...] week 05/02/2024 How often do you attend [facility] or jehovah's witness services? More than 4 times per year 05/02/2024 Do you belong to any clubs o r organizations such as baptism groups, unions, fraternal or athletic groups, or [...] and heating? Not hard at all 05/02/2024 [facility] - Occupational Stress Questionnaire Answer Date Recorded [...] any time in the past 12 [facility], were you homeless or living in a long-term (including now)? No 05/02/2024 Personal Safety Answer Date Recorded Have you ever been in or are you currently in a harmful physical or emotional relationship or is someone making you feel afraid or unsafe? 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 Abdi Page MD CV CARDIAC CATH PROCEDURES Final Result * ABO / Rh Confirmation Testing (12/13/2024 11:34 AM CDT) ABO/Rh Confirmation A Positive [facility] Blood 12/13/2024 11:3 4 AM CDT 12/13/2024 11:38 AM CDT us Abdi Page MD LAB BLOOD ORDERABLES Final Result [facility] [address] Department [place] [address] [facility] * (ABNORMAL) eGFR (12/13/2024 11:04 AM CDT) [facility] eGFR 51(L) >=60 mL/min/1. 73 m2 Comment: [...] Page MD LAB BLOOD ORDERABLES Final Result [facility] [address] Department [place] [address] * (ABNORMAL) Differential, auto (12/13/2024 11:04 AM CDT) [facility] Neutrophil abs 5.6 1.5 - 6.5 K/cumm Imm gran abs 0.0 0.0 - 0.1 K/cumm [facility] Lymphocyte abs 1.3 0.8 - 3.3 K/cumm [facility] Monocyte abs 0.1(L) 0.2 - 0.8 K/cumm [facility] Eosinophil abs 0.0 0.0 - 0.5 K/cumm [facility] Basophil abs 0.0 0.0 - 0.1 K/cumm [facility] Neutrophil pct 80.0 % [facility] Comment: Interpretive Data Percent cell count reference ranges are not reported, since discordance with absolute values may lead to misinterpretation of CBC data. Current Interpretive Data was last revised on 2017. Imm gran pct 0.1 % [facility] Comment: Interpretive Data Percent cell count reference ranges are not reported, since discordance with absolute values may lead to misinterpretation of CBC data. Current Interpretive Data was last revised on 2017. Lymphocyte pct 19.1 % [facility] Comment: Interpretive Data Percent cell count reference ranges are not reported, since discordance with absolute values may lead to misinterpretation of CBC data. Current Interpretive Data was last revised on 2017. Monocyte pct 0.7 % [facility] Comment: Interpretive Data Percent cell count reference ranges are not reported, since discordance with absolute values may lead to misinterpretation of CBC data. Current Interpretive Data was last revised on 2017. Eosinophil pct 0.0 % [facility] Comment: Interpretive Data Percent cell count reference ranges are not reported, since discordance with absolute values may lead to misinterpretation of CBC data. Current Interpretive Data was last revised on 2017. Basophil pct 0.1 % [facility] Comment: Interpretive Data Percent cell count reference ranges are not reported, since discordance with absolute values may lead to misinterpretation of CBC data. Current Interpretive Data was last revised on 2017. Blood 12/13/2024 11:0 4 AM CDT 12/13/2024 11:07 AM CDT us Abdi Page MD LAB BLOOD ORDERABLES Final Result [facility] [address] Department [place] [address] * (ABNORMAL) CBC with auto differential (12/13/2024 11:04 AM CDT) WBC 7.0 3.8 - 9.9 K/cumm Hgb 13.4 13.0 - 17.5 g/dL [facility] Hct 40.6 38.9 - 50.3 % [facility] Plt 187 150 - 400 K/cumm [facility] MPV 10.4 9.1 - 12.3 fL [facility] RBC 4.06(L) 4.30 - 5.80 M/cumm [facility] MCV 100.0(H) 81.3 - 96.4 fL [facility] MCH 33.0 27.1 - 33.3 pg [facility] MCHC 33.0 32.3 - 35.7 g/dL [facility] RDW CV 13.2 11.1 - 14.9 % [facility] RDW SD 48.3(H) 35.7 - 48.1 fL [facility] NRBC abs 0.00 0.00 - 0.01 K/cumm [facility] Blood 12/13/2024 11:0 4 AM CDT 12/13/2024 11:07 AM CDT Narrative [facility] - 12/13/2024 11:09 AM CDT If most recent labs were drawn prior to 4 AM, draw only prior to initiating procedure. Abdi Page MD LAB BLOOD ORDERABLES Final Result Performing Organization Address City/[facility]/ZIP Co de Phone Number [address] [place] [address] * ABO/Rh (12/13/2024 11:04 AM CDT) [facility] ABO/Rh A Positive Blood 12/13/2024 11:0 4 AM CDT 12/13/2024 11:07 AM CDT Narrative [facility] - 12/13/2024 11:45 AM CDT Has the patient had Daratumumab or Isatuximab in the past 6 months?->Unknown Abdi Page MD LAB BLOOD BANK TEST ORDERA BLES Final Result Performing Organization Address City/[facility]/ZIP Co de Phone Number [address] [place] [place] [address] * aPTT (12/13/2024 11:04 AM CDT) Pathologist [facility] aPTT 27 22 - 37 sec Comment: Interpretive data aPTT test has not been evaluated for monitoring heparin therapy. The anti-Xa is the preferred test. Current interpretive data was last revised on 2019. Blood 12/13/2024 11:0 4 AM CDT 12/13/2024 11:07 AM CDT Result [facility] Abdi Page MD LAB BLOOD ORDERABLES Final Result Performing Organization Address [facility] de Phone Number [address] [address] * Protime-INR (12/13/2024 11:04 AM CDT) PT [...] 4 AM CDT 12/13/2024 11:07 AM CDT Result [facility] Abdi Page MD LAB BLOOD ORDERABLES Final Result Performing Organization Address [facility] de Phone Number [address] [address] * Antibody screen (12/13/2024 11:04 AM CDT) Saurav, indirect, Gel Interpretation Negative [facility]SC Blood 12/13/2024 11:0 4 AM CDT 12/13/2024 11:07 AM CDT Narrative [facility] - 12/13/2024 11:46 AM CDT Has the patient had Daratumumab or Isatuximab in the past 6 months?->Unknown Abdi Page MD LAB BLOOD BANK TEST ORDERA BLES Final Result Performing Organization Address City/[facility]/ZIP Co de Phone Number [facility] [address] Department [place] [address] * (ABNORMAL) Comprehensive metabolic panel (12/13/2024 11:04 AM CDT) Sodium 138 135 - 145 mmol/L Potassium, pl 4.3 3.3 - 4.9 mmol/L [facility] Chloride 104 97 - 110 mmol/L [facility] CO2 26 22 - 32 mmol/L [facility] Anion gap 8 2 - 15 mmol/L [facility] BUN 22 6 - 25 mg/dL [facility] Creatinine 1.34(H) 0.80 - 1.30 mg/dL [facility] Glucose 149 70 - 199 mg/dL [facility] Comment: Interpretive Data Fasting glucose >/= 126 [...] 2022. Calcium 10.5(H) 8.5 - 10.3 mg/dL [facility] Bilirubin, total 0.6 0.1 - 1.2 mg/dL [facility] Protein, pl 6.9 6.5 - 8.5 g/dL [facility] Albumin 3.7 3.5 - 5.0 g/dL [facility] Alk phos 68 40 - 130 Units/L [facility] ALT 13 7 - 55 Units/L [facility] AST 17 10 - 50 Units/L [facility] Blood 12/13/2024 11:0 4 AM CDT 12/13/2024 11:07 AM CDT us Abdi Page MD LAB BLOOD ORDERABLES Final Result Performing Organization Address City/[facility]/ZIP Co de Phone Number [facility] [address] Department [place] [address] * CTA Abdomen Pelvis (11/30/2024 1:15 PM [...] Findings Committee. J Am Fiona Radiol. 2017 Apr;14(8):5396-3474. FINDINGS: VASCULATURE: AORTA: Multifocal atherosclerotic changes of [...] Emmanuel Jameson M.D. NS T: Report ID: [id number] Reading Location: [id number] Procedure Note Emmanuel Jameson MD - 12/06/2024 [...] Findings Committee. J Am Fiona Radiol. 2017 Apr;14(8):4437-8708. FINDINGS: VASCULATURE: AORTA: Multifocal atherosclerotic changes of [...] Emmanuel Jameson M.D. 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 04/29/2024 Insurance [facility] MEDICARE ADVANTAGE [employer] MEDICARE ADVANTAGE [employer] MEDICARE ADVANTAGE Advance Directives For more information, please contact: [phone] Documents on File Type Date Recorded Patient Hand Trucker Expl anation ADVANCE DIRECTIVE 05/11/2024 1:21 AM POWER OF MANAGER REPORT-MEDICAL ADVANCE DIRECTIVE 04/24/2024 10:52 AM AD/PO A [...] 1:51 AM 04/23/2024 2:07 AM Care Teams Brass Finisher Relationship Specialty Start Date End Date Mateo Zhong MD [address] [place] [address] [address] [place] [address] PCP - General Family Medicine 12/06/24 Abdi Page MD [address] [facility] [address] [place] [address] Surgeon Vascular Surgery 01/11/23
--- OUTSIDE RECORDS SUMMARY | 2025-01-13 10:15 | XMS_ITS ---
Author Name Auto Generated, Auto Generated Organization [facility] ice Address [address] [place] [address] Phone [phone] Care Team Providers Care Recruitment Coordinator Name Role Phone Mateo Zhong Unavailable Mendel Haile Unavailable [phone] Aracelis Montanez Unavailable Functional Status Mental Status Allergies and Intolerances Encounters Immunizations Medications Problems Vital Signs Reason for Referral
--- OUTSIDE RECORDS SUMMARY | 2025-01-13 10:15 | XMS_ITS ---
Author Name Auto Generated, Auto Generated Organization [facility] ice Address [address] [place] [address] Phone [phone] Care Team Providers Care Reconsignment Clerk Name Role Phone Mateo Zhong Unavailable Mendel Haile Unavailable [phone] Aracelis Montanez Unavailable [phone] Functional Status Mental Status Allergies and Intolerances Encounters Immunizations Medications Problems Vital Signs Reason for Referral
--- OUTSIDE RECORDS SUMMARY | 2025-01-13 10:15 | XMS_ITS | Encounter Summary ---
Author Organization [facility] Care Team Providers Care Ore Miner Name Role Phone Aleks Treviño MD Primary Care Provider [phone] Abdi Page MD Unavailable [phone] Mateo Zhong MD Primary Care Provider [phone] Encounter Details Date Type Department Care Team (Latest Contact Info) Description 04/07/2016 Orders Only [facility]INCON[facility] ProviderChikis MD [address] [place] [address] Social History Tobacco Use Types Packs/Day Years Used Date Smoking Tobacco: Never Assessed Sex and Gender Information Value Date Recorded Sex Assigned at Not on file 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 Appropriate flag added. Lisandra Dallas RN 04/28/2024- Patient exposed to C. Auris positive patient on 04/28/2024. Patient will need to be swabbed on 04/29 and 05/01. Please contact infection prevention for instructions on obtaining surveillance cultures. Ashley Mckeon 04/28/2024 04/28/2024 04/30/2024 3:44 PM C DT 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 04/29/2024 documented as of this encounter Care Teams Ore Miner Relationship Specialty Start Date End Date Aleks Treviño MD PCP - General 02/21/15 12/05/24 Mateo Zhong MD [address] [facility] [address] [place] [address] PCP - General Family Medicine 12/06/24 Abdi Page MD [address] [facility] [address] [place] [address] Surgeon Vascular Surgery 01/11/23 documented as of this encounter
--- OUTSIDE RECORDS SUMMARY | 2025-01-13 10:15 | XMS_ITS | Clinical Summary ---
Author Organization [facility] Address [address] [place] [address] Phone Care Team Providers Care Database Operator Name Role Phone Aleks Treviño MD Primary Care Provider [phone] Allergies Active Allergy Reactions Criticality Noted Date Comments Iodine Rash Medium 06/22/2019 Medications fish oil-omega-3 fatty acids 1000 MG capsule Take by mouth Active acetaminophen (TYLENOL) 500 MG tablet Take 1,000 mg by mouth 04/25/2021 Active Eliquis 2.5 MG tablet 12/01/2021 Active atorvastatin (LIPITOR) 10 MG tablet 10/13/2021 Active lisinopril-hydr oCHLOROthiazide (PRINZIDE) 10-12.5 MG per tablet 10/13/2021 Active metoprolol tartrate (LOPRESSOR) 25 MG tablet 12/01/2021 Active polyethylene glycol (GLYCOLAX) 17 GM/SCOOP powder Take 17 g by mouth 04/26/2021 Active senna (SENOKOT) 8.6 MG tablet Take 2 tablets by mouth 2 times daily 04/26/2021 Active tamsulosin (FLOMAX) 0.4 MG 24 hr capsule 11/18/2021 Activ e cyanocobalamin (VITAMIN B-12) 1000 MCG tablet Take [...] stable. Follow-up 1 year for duplex. Immunizations Immunization Administration Dates Next Due Influenza Recombinant Canelo [...] at Not on file Legal Sex Male 10:53 AM MDT Gender Identity Not on file Sexual Orientation Not on file Last Filed Vital Signs Vital Sign Reading Time Taken Comments Blood Pressure 122/68 06/24/2022 11:25 AM CDT Pulse 72 06/24/2022 11:25 AM CDT Temperature 36.4 C (97.6 F) 06/24/2022 11:25 AM CDT Respiratory Rate - - Oxygen Saturation - - Inhaled Oxygen Concentration - - Weight 111 kg (244 lb) 06/24/2022 11:25 AM CDT Height 182.9 cm (6') 06/24/2022 11:25 AM CDT Body Mass Index 33.09 06/24/2022 11:25 AM CDT Plan of Treatment Health Maintenance Due Date Last Done Comments Pneumococcal PPSV23/PCV13 65 + Years / Low and Medium Risk (2 of 3 - PCV) 05/24/2020 05/24/2019 Influenza Vaccine (Season Ended) 2025 05/27/2022, 05/24/2019, 07/14/2017 Insurance [employer] MEDICARE Care Teams Database Operator Relationship Specialty Start Date End Date Aleks Treviño MD [address] [place] [address] PCP - General Internal Medicine 12/01/21
--- NOTE | 2025-01-13 10:34 | ED.GENADULT ---
HPI - General Adult General Chief complaint: Fall Stated complaint: fall History of Present Illness HPI narrative: 89-year-old male presents emergency department for evaluation for a head injury. Patient states he was walking in his home when his left leg gave out causing him to fall backwards and strike his head. Patient does take Eliquis. Patient denies any other pain or injury. Patient does have a contusion to his posterior scalp. Patient denies any loss of consciousness. Related Data Home Medications ?Medication ?Instructions ?Recorded ?Confirmed ?Last Taken ?Type acetaminophen 500 mg capsule 1,000 mg PO Q6H PRN 12/18/24 12/23/24 Unknown History apixaban 2.5 mg tablet (Eliquis) 2.5 mg PO BID 12/18/24 12/23/24 Unknown History buspirone 15 mg tablet 15 mg PO BID 12/18/24 12/23/24 Unknown History carbamide peroxide 6.5 % ear drops 5 drp EACH EAR DAILY 12/18/24 12/23/24 Unknown History (Debrox) colloidal oatmeal 1 % topical applic topical 12/18/24 12/23/24 Unknown History cream (Eucerin Baby Eczema Relief) cyanocobalamin (vitamin B-12) 1,000 mcg PO DAILY 12/18/24 12/23/24 Unknown History 1,000 mcg tablet escitalopram oxalate 10 mg tablet 10 mg PO DAILY 12/18/24 12/23/24 Unknown History furosemide 20 mg tablet 20 mg PO DAILY 12/18/24 12/23/24 Unknown History metoprolol tartrate 25 mg tablet mg PO BID 12/18/24 12/23/24 Unknown History polyethylene glycol 3350 17 17 g PO DAILY 12/18/24 12/23/24 Unknown History gram/dose oral powder sennosides 8.6 mg-docusate sodium 1 tab-cap PO BID 12/18/24 12/23/24 Unknown History 50 mg tablet (Stimulant Laxative Plus) tamsulosin 0.4 mg capsule 0.8 mg PO DAILY 12/18/24 12/23/24 Unknown History tizanidine 2 mg capsule See Rx Instructions PO TID 12/18/24 12/23/24 Unknown History Allergies Allergy/AdvReac Type Severity Reaction Status Date / Time iodine Allergy Mild Rash Verified 12/18/24 10:58 Review of Systems Review of Systems: All systems reviewed & are unremarkable except as noted in HPI and below PMFSH Past Medical History Medical History Chronic kidney disease, stage 3a Hypertensive chronic kidney disease Hyperparathyroidism, secondary renal Paroxysmal atrial fibrillation BPH (benign prostatic hyperplasia) Breast cancer screening Arthritis of right knee Arthritis of right hip History of chicken pox History of mumps Essential (primary) hypertension Hyperlipidemia, unspecified Surgical History Surgical History History of AAA (abdominal aortic aneurysm) repair History of cataract extraction History of right hip replacement 2020 S/P TURP History of left hip replacement (~2008) H/O endovascular stent graft for abdominal aortic aneurysm Family History Family History Mother , age 59 Hypertension, Onset Age: 59 Heart disease Congestive heart failure Father , age 41 Pancreatic cancer Daughter No chronic problems Other Carcinoma of colon Family history of hypercholesterolemia Social History Social History Social History: The patient is a and lives home alone. He has 3 children. 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 The patient smoked from [id number] while he was in the . The patient does not use any alcohol marijuana or illicit drugs. 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 Code status full code Smoking packs per day: 0.25 Smoking cigarettes per day: 5.0 Years smoked: 5 Smoking pack-years: 1.25 Smoking status: Former smoker Alcohol intake: never Substance use: never Substance use type: does not use Do You Feel Safe in your Home?: Yes Lack of Transportation: No Lack of Food: Never True Current Housing: Decline to Answer Concerned About Future Housing: Decline to Answer Difficulty Paying Gas/Electric Bills: Decline to Answer Difficulty Paying for Meds: Decline to Answer Currently Unemployed: Decline to Answer Education: Decline to Answer Difficulty w/ Childcare or Family Care: Decline to Answer Living arrangements: alone Additional living arrangements comments: [place] Occupation/Education: retired Gender identity (if verbalized by the patient): Male Spiritual care concerns: No Exam Narrative: APPEARANCE: Well appearing, no pain, no distress, well-nourished. HEAD: normocephalic, abrasion to posterior scalp with contusion EYES: PERRLA/EOMI, conjunctivae clear. NOSE: Normal no drainage EARS:TMS clear with good light reflex. THROAT: Pharynx clear, no exudate. NECK: Supple. No adenopathy, no masses. RESPIRATORY: Airway patent, respirations nonlabored. Clear to auscultation bilaterally, no rales, rhonchi, wheezing. CARDIOVASCULAR: Regular rate and rhythm without murmurs rubs or gallops. ABDOMINAL: Soft, nontender, nondistended, normal bowel sounds MUSCULOSKELETAL: Moves all extremities. Strength/ROM intact, No edema, No calf tenderness. NEURO: Alert. Cranial nerves II through XII intact. Good gait. Good coordination SKIN: Warm, dry. Normal Color Course Vital Signs Vital signs: Vital Signs Temperature 97.6 F 01/13/25 10:08 Pulse Rate 55 L 01/13/25 10:08 Respiratory Rate 17 01/13/25 10:08 Blood Pressure 207/87 H 01/13/25 10:08 Pulse Oximetry 96 01/13/25 10:08 Oxygen Delivery Room Air 01/13/25 10:08 Temperature 97.6 F 01/13/25 10:08 Pulse Rate 57 L 01/13/25 13:02 Respiratory Rate 19 01/13/25 13:02 Blood Pressure 180/82 H 01/13/25 13:02 Pulse Oximetry 100 01/13/25 13:02 Oxygen Delivery Room Air 01/13/25 10:08 Medical Decision Making [facility] Narrative Medical decision making narrative: 89-year-old male presents emergency department for evaluation for head injury after having left leg to weakness leading to a ground level fall. Patient had no laceration requiring repair. Head CT was negative for acute bleed. Patient does feel back to his baseline. Patient was able to stated to bit at his baseline. All questions concerns were addressed patient was comfortable with plan for discharge and close follow-up with his physicians. Differential Diagnosis Differential Diagnosis: Subdural hematoma, subarachnoid hemorrhage, chronic weakness, scalp contusion Vital Signs Vital Signs: Vital Signs Temperature 97.6 F 01/13/25 10:08 Pulse Rate 55 L 01/13/25 10:08 Respiratory Rate 17 01/13/25 10:08 Blood Pressure 207/87 H 01/13/25 10:08 Pulse Oximetry 96 01/13/25 10:08 Oxygen Delivery Room Air 01/13/25 10:08 Temperature 97.6 F 01/13/25 10:08 Pulse Rate 57 L 01/13/25 13:02 Respiratory Rate 19 01/13/25 13:02 Blood Pressure 180/82 H 01/13/25 13:02 Pulse Oximetry 100 01/13/25 13:02 Oxygen Delivery Room Air 01/13/25 10:08 Discharge Plan Discharge Clinical Impression: Head injury Patient Disposition: Home Condition: Stable Instructions: Antibiotic Form, Head Injury (ED) Additional Instructions: Have close follow-up with your primary care physician. If you have any worsening symptoms then please call or return to the emergency department. Patient Language: Citizen Of [place] Prescriptions: No Action metoprolol tartrate 25 mg tablet PO BID furosemide 20 mg tablet 20 mg PO DAILY polyethylene glycol 3350 17 gram/dose powder 17 g PO DAILY sennosides-docusate sodium [Stimulant Laxative Plus] 8.6-50 mg tablet 1 tab-cap PO BID cyanocobalamin (vitamin B-12) 1,000 mcg tablet 1,000 mcg PO DAILY Eliquis 2.5 mg tablet 2.5 mg PO BID tamsulosin 0.4 mg capsule 0.8 mg PO DAILY acetaminophen 500 mg capsule 1,000 mg PO Q6H PRN Eucerin Baby Eczema Relief 1 % cream topical escitalopram oxalate 10 mg tablet 10 mg PO DAILY tizanidine 2 mg capsule See Rx Instructions PO TID Rx Instructions: take 1-2 tablets as needed for hour of sleep starting buspirone 15 mg tablet 15 mg PO BID Debrox 6.5 % drops 5 drp EACH EAR DAILY atorvastatin 10 mg tablet See Rx Instructions .ROUTE .COMPLEX Qty: 100 1RF Dose Instruction: TAKE 1 TABLET BY MOUTH DAILY Rx Instructions: TAKE 1 TABLET BY MOUTH HS lisinopril 5 mg tablet 5 mg PO DAILY Qty: 90 1RF Follow-up/Referrals: Aleks Treviño MD [Primary Care Provider] -
[2025-01-13] MEDS: hydrALAZINE HCL 20 MG/ML VIAL 10 MG IV PUSH (12:20)
[2025-01-13 13:01] VITALS: BP 180/82; PULSE 78; RESP 16; O2SAT 97
[2025-01-13 13:02] VITALS: BP 180/82; PULSE 57; RESP 19; O2SAT 100
== END 2025-01-13 13:02 | disposition home or self-care (01) ==
PROVIDERS: Emergency Provider Emergency Medicine; PCP Family Medicine
DX: S00.03XA Contusion of scalp, initial encounter (principal); I12.9 Hypertensive chronic kidney disease with stage 1 through stage 4 chronic kidney disease, or unspecified chronic kidney disease; N18.31 Chronic kidney disease, stage 3a; N25.81 Secondary hyperparathyroidism of renal origin; I48.0 Paroxysmal atrial fibrillation; E78.5 Hyperlipidemia, unspecified; N40.0 Benign prostatic hyperplasia without lower urinary tract symptoms; M17.11 Unilateral primary osteoarthritis, right knee; M16.11 Unilateral primary osteoarthritis, right hip; Z96.643 Presence of artificial hip joint, bilateral; Z87.891 Personal history of nicotine dependence; Z98.49 Cataract extraction status, unspecified eye; Z79.01 Long term (current) use of anticoagulants; Z79.899 Other long term (current) drug therapy; W18.39XA Other fall on same level, initial encounter
CPT/HCPCS: 70450; 96374; 99284; J0360

== ENCOUNTER 2025-08-15 09:29 | Emergency (ER) | payer MEDICARE, SELFPAY ==
[2025-08-15 09:47] VITALS: BP 155/69; PULSE 57; RESP 20; TEMP 36.1; O2SAT 99
--- OUTSIDE RECORDS SUMMARY | 2025-08-15 10:03 | XMS_ITS | Encounter Summary ---
Author Organization [facility] Facility Care Team Providers Care Refinery Operator Assistant Name Role Phone Aleks Treviño MD Primary Care Provider [phone] Abdi Page MD Unavailable [phone] Mateo Zhong MD Primary Care Provider [phone] Encounter Details Date Type Department Care Team (Latest Contact Info) Description 04/07/2016 Orders Only [facility] ProviderChikis MD [address] [place] [id number] Social History Tobacco Use Types Packs/Day Years Used Date Smoking Tobacco: Never Assessed Sex and Gender Information Value Date Recorded Sex Assigned at Not on file 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
--- OUTSIDE RECORDS SUMMARY | 2025-08-15 10:03 | XMS_ITS | Clinical Summary ---
Author Organization [facility] Bing at the [facility] Office Center Address [address] [place] [address] Care Team Providers Care Commodities Requirements Analyst Name Role Phone Abdi Page MD Unavailable [phone] Mateo Zhong MD Primary Care Provider [phone] Allergies Active Allergy Reactions Criticality Noted Date [...] (20 mg total) by mouth daily 4 Active senna-docusate (PERICOLACE) 8.6-50 mg Take 1 tablet by mouth 2 (two) times a day 4 Active predniSONE (DELTASONE) 50 mg tabletIndication s:Personal history of allergy to contrast media (used for diagnostic x-rays) Take 1 tab 13 hours, 7 hours and 1 hour prior to scan along with 50 MG Benadryl. 3 tablet 5 Active Additional Information Patient not taking.Reported on 03/21/2025 escitalopram (LEXAPRO) 10 mg tablet Take 1 [...] by mouth daily 3 tablet 5 Active diphenhydrAMINE (BENADRYL) 50 mg capsule Take 1 capsule (50 mg total) by mouth every 6 (six) hours as needed for itching Active predniSONE (DELTASONE) 50 mg tablet Take [...] f/u post transfusion cbc -05/13-25: Pending placement -05/15: Patient is medically stable [...] of aortic graft 02/22/2023 Assessment & Plan (03/22/2025 10:31 AM CDT): CT scan shows persistent contrast in the aneurysmal sac however aneurysm remains stable. No appreciable type 2 endoleak noted. Discuss[address] with Dr. Page. We will repeat CTA in 6 months. 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 Repeat CT scan 1 month. We will continue surveillance. Assessment & Plan (12/06/2024 3:00 PM CDT): [...] S/P AAA repair 03/31/2022 Assessment & Plan (03/10/2025 1:07 PM CDT): Status post EVAR. We will continue ongoing CT surveillance. Assessment & Plan (12/18/2023 5:23 PM CDT): [...] Osteoarthritis 04/23/2021 Osteoarthritis of right hip 03/11/2021 05/3 Other hyperlipidemia 12/10/2020 Assessment & Plan (03/10/2025 1:07 PM CDT): Hyperlipidemia chronic controlled. Continue statin therapy. Assessment & Plan (01/27/2023 9:06 AM CDT): [...] Encounters Date Type Department Care Team Description 07/12/2025 10:30 AM CDT Office Visit [facility] Medical Group Cardiology at [address] [place] [address] Aleks Roy MD Paroxysmal atrial fibrillation (HCC) (Primary Dx) from Last 3 Months Immunizations [...] VASCULAR SURGERY PROCEDURE 12/13/2024 N/A Procedure: Discontinued Vasc Case Pre Proc; Surgeon: Abdi Page MD; Location: [facility] CARDIAC VACUUM FRAME OPERATOR; Service: Vascular; Laterality: N/A; JULIO (SHOCKWAVE) CARDIAC CATHETERIZATION 01/31/2025 N/A Procedure: AORTOGRAM POTENTIAL INTERVENTION COIL EMBOLIZATION; Surgeon: Abdi Page MD; Location: [facility] CARDIAC VACUUM FRAME OPERATOR; Service: Vascular; Laterality: N/A; Medical devices from this surgery are in the Medical Devices section. Medical History Medical History Date Comments Hypertension Hypercholesterolemia Arthritis Atrial fibrillation (HCC) 10/31/2021 CKD (chronic kidney disease) Family History Medical History Relation Name Comments Pancreatic cancer Father Heart disease Mother Heart failure Mother Hypertension Mother Colon cancer Other Relation Name Status Comments Father Mother Other Social History Tobacco Use Types Packs/Day Years Used Date Smoking Tobacco: Former Tobacco Cessation:Counseling Given: No [facility] Utilities Answer Date Recorded In the past 12 months has e electric, gas, oil, or water company threatened to shut off services in your [...] or ex-partner? No 05/02/2024 Social Connection and Isolation Panel Answer Date Recorded In a typical week, how many times do you talk on the phone with family, friends, or neighbors? More than three times a week 05/02/2024 How often do you get togethe r with friends or relatives? Three times a week 05/02/2024 How often do you attend [facility] or episcopal services? More than 4 times per year 05/02/2024 Do you belong to any clubs o r organizations such as episcopal groups, unions, fraternal or athletic groups, or school groups? No 05/02/2024 How often do you attend meet ings of the clubs or organizations you belong to? Never 05/02/2024 Are you , , di vorced, , never , or living with a partner? 05/02/2024 AUDIT-C Answer Date Recorded Q1: How often do you have a drink containing alcohol? Never 01/31/2025 Q2: How many drinks containi ng alcohol do you have on a typical day when you are drinking? Patient does not drink Q3: How often do you have si x or more drinks on one occasion? Never 01/31/2025 Overall Financial Resource Strain (CARDIA) Answe r Date Recorded How hard is it for you to pa y for the very basics like food, housing, medical care, and heating? Not hard at all 05/02/2024 [facility] [place] of Occupat ional Health - Occupational Stress [...] any time in the past 12 m [facility], were you homeless or living in a [place] health care facility (including now)? No 05/02/2024 Personal Safety Answer Date Recorded Have you ever been in or are you currently in a harmful physical or emotional relationship or is someone making you feel afraid or unsafe? 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 Gender Identity Not on file Sexual Orientation Not on file Last Filed Vital Signs Vital Sign Reading Time Taken Comments Blood Pressure 138/70 07/12/2025 10:23 AM CDT Pulse 64 07/12/2025 10:23 AM CDT Temperature 36.4 C (97.6 F) 01/31/2025 2:10 PM CDT Respiratory Rate 18 01/31/2025 3:40 PM CDT Oxygen Saturation 98% 07/12/2025 10:23 AM CDT Inhaled Oxygen Concentration - - Weight 101.2 kg (223 lb) 07/12/2025 10:23 AM CDT Height 182.9 cm (6') 07/12/2025 10:23 AM CDT Body Mass Index 30.24 07/12/2025 10:23 AM CDT Plan of Treatment Health Maintenance Due Date Last Done Comments Depression Screening 1937 Hepatitis B Screening 1955 Well Visit 65+ 2002 DTaP/Tdap/Td Vaccine (1 - Tdap) 02/25/2007 7, 07/09/1995 Influenza Vaccine (#1) 2025 , 05/27/2022, 06/10/2020, Additional history exists Fall Risk Assessment 01/31/2026 01/31/2025 Pneumococcal vaccine 65+ Completed 05/24/2019, 10/2016 Zoster Vaccine Completed 02/08/2023, 10/22, 08/24/2007 Medical Devices Implanted Type Area Project Architect Device Identifier Shelf Expiration Date Model / Serial / Lot [employer] Pod 60cm Pack J-Soft Coil Embolization Sterile Latex Free [id number] - [id number] Implanted:Qty: 1 on 01/31/2025 by Abdi Page MD at [facility] 03/19/2032 [id number] / / [id number] [facility] Pod 30cm Pack J-Soft Coil Embolization Sterile Latex Free [id number] - [id number] Implanted:Qty: 1 on 01/31/2025 by Abdi Page MD at [facility] 12/19/2031 [id number] / / [id number] [place] [facility] System Closure Repair Femoral Artery Suture Mediated Perclose Prostyle 45435-94 - [id number] Implanted:Qty: 1 on 01/31/2025 by Abdi Page MD at [facility] [employer] 12/18/2026 [id number] / [id number] Additional Health Concerns Infection Onset 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 04/29/2024 Insurance [facility] ADVANTAGE [facility] Address: [place] [address] [employer]HC MEDICARE ADVANTAGE [facility] Address: [place] [address] UHC MEDICARE ADVANTAGE Advance Directives For more information, please contact: [phone] Documents on File Type Date Recorded Patient Cnc Set Up Operator Expl anation ADVANCE DIRECTIVE 05/11/2024 1:21 AM POWER OF ASSET PROTECTION LEAD-MEDICAL ADVANCE DIRECTIVE 04/24/2024 10:52 AM AD/PO A [...] 1:51 AM 04/23/2024 2:07 AM Care Teams Commodities Requirements Analyst Relationship Specialty Start Date End Date Mateo Zhong MD [address] [place] [address] PCP - General Family Medicine 12/06/24 Abdi Page MD [address] [facility] [address] [facility] [address] [place] [address] Surgeon Vascular Surgery 01/11/23
--- OUTSIDE RECORDS SUMMARY | 2025-08-15 12:39 | XMS_ITS | Clinical Summary ---
Author Organization [facility] at the [facility] Office Center Address [address] [place] [address] Care Team Providers Care Sap Architect Name Role Phone Abdi Page MD Unavailable [phone] Mateo Zhong MD Primary Care Provider [phone] Allergies Active Allergy Reactions Criticality Noted Date [...] Description 07/12/2025 10:30 AM CDT Office Visit [facility] Medical Group Cardiology at [address] [place] [address] Aleks Roy MD Paroxysmal atrial [...] Pre Proc; Surgeon: Abdi Page MD; Location: [facility] CARDIAC ABSORPTION AND ADSORPTION ENGINEER; Service: Vascular; Laterality: N/A; JULIO (SHOCKWAVE) CARDIAC CATHETERIZATION 01/31/2025 N/A Procedure: AORTOGRAM POTENTIAL INTERVENTION COIL EMBOLIZATION; Surgeon: Abdi Page MD; Location: [facility] CARDIAC ABSORPTION AND ADSORPTION ENGINEER; Service: Vascular; Laterality: N/A; Medical devices from [...] Smoking Tobacco: Former Tobacco Cessation:Counseling Given: No [facility] Utilities Answer Date Recorded In the [...] week 05/02/2024 How often do you attend [facility] or gnosticism services? More than 4 times per year 05/02/2024 Do you belong to any clubs o r organizations such as mu-ism groups, unions, fraternal or athletic groups, or [...] and heating? Not hard at all 05/02/2024 [facility] [place] of Occupat ional Health - Occupational Stress [...] any time in the past 12 m [facility], were you homeless or living in a nursing home (including now)? No 05/02/2024 Personal Safety Answer Date Recorded Have you ever been in or are you currently in a harmful physical or emotional relationship or is someone making you feel afraid or unsafe? 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 Gender Identity Not on file Sexual Orientation [...] 10/22, 08/24/2007 Medical Devices Implanted Type Area Charge Master Analyst Device Identifier Shelf Expiration Date Model / Serial / Lot Pen[employer] Inc Pod 60cm Pack J-Soft Coil Embolization Sterile Latex Free [id number] - [id number] Implanted:Qty: 1 on 01/31/2025 by Abdi Page MD at [facility] 03/19/2032 [id number] / / [id number] [facility] Pod 30cm Pack J-Soft Coil Embolization Sterile Latex Free [id number] - [id number] Implanted:Qty: 1 on 01/31/2025 by Abdi Page MD at [facility] 12/19/2031 [id number] / / [id number] [place] [facility] System Closure Repair Femoral Artery Suture Mediated Perclose Prostyle 54966-39 - [id number] Implanted:Qty: 1 on 01/31/2025 by Abdi Page MD at [facility] [employer] 12/18/2026 [id number] / [id number] Additional Health Concerns Infection Onset 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 04/29/2024 Insurance [facility] MEDICARE ADVANTAGE UHC MEDICARE ADVANTAGE UHC MEDICARE ADVANTAGE Advance Directives For more information, please contact: [phone] Documents on File Type Date Recorded Patient Cosmetology Instructor Expl anation ADVANCE DIRECTIVE 05/11/2024 1:21 AM POWER OF PRODUCTION LINE ASSEMBLER-MEDICAL ADVANCE DIRECTIVE 04/24/2024 10:52 AM AD/PO A [...] 1:51 AM 04/23/2024 2:07 AM Care Teams Sap Architect Relationship Specialty Start Date End Date Mateo Zhong MD [address] [place] [address] PCP - General Family Medicine 12/06/24 Abdi Page MD [address] [facility] [address] [facility] [address] [place] [address] Surgeon Vascular Surgery 01/11/23
--- OUTSIDE RECORDS SUMMARY | 2025-08-15 12:39 | XMS_ITS | Data Portability ---
Author Organization [employer] [facility], Main Office Address [address] [place] [address] Care Team Providers Care Instrument Processing Tech Name Role Phone P [facility] FAX OTHER ADELA MATHIS Primary Care Provider Assessment Encounter Date Assessment Date Assessment LastModified by Organization Details LastModified Time 08/27/2024 08/27/2024 labs in am [email or web address] Not available 05/2024 00:09:47 09/04/2024 09/04/2024 Add dionne Zhangay to keep at bedside and self-administ er. Not available 09/04/2024 14:54:31 09/06/2024 09/06/2024 Pt will d/c back to [facility] apartment at [place] on 09/08. Not available 09/06/2024 14:41:21 Plan [...] By Organization Details Last Modified Time 08/27/2024 [id number] I spent 16 minutes counseling and discussing advance directives and/or end of life care planning and decisions with the patient today. I reviewed the current relevant diagnoses, treatment options, natural history, and prognosis and clarified the patient's goals of care. code status is DNR I spent 68 minutes providing care to the patient today. More than 50% of that time was spent in discussing the expected course of the disease, discussing prognosis, coordinating care and counseling of the patient/family. [email or web address] Not available 08/30/2024 07:13:20 08/31/2024 [id number] I spent 35 minutes providing care to the patient today. More than 50% of that time was spent in discussing the expected course of the disease, discussing prognosis, coordinating care and counseling of the patient/family. Not available 08/31/2024 13:22:15 09/04/2024 [id number] I spent 34 minutes providing care to the patient today. More than 50% of that time was spent in discussing the expected course of the disease, discussing prognosis, coordinating care and counseling of the patient/family. Not available 09/04/2024 14:46:05 09/06/2024 [id number] I spent 40 minutes providing care to the patient today. More than 50% of that time was spent in discussing the expected course of the disease, discussing prognosis, coordinating care and counseling of the patient/family. The patient will be discharged home with home health orders of home health RN / PT / OT to evaluate and treat. The patient is homebound because of fall risk and is unable to leave home safely because requires considerable and taxing effort to leave home. The patient requires home health nursing for instruction, observation and assessment; PT for training to restore safe independent functional ambulation in community; and OT for training to improve ability to fulfill ADLs. Please follow-up with your primary care provider within 1 week. Call your primary care provider for instructions or go to the emergency room for new or worsening symptoms. Not available 09/06/2024 14:43:34 Reason for Referral None Reported. Results Created Date Observation Date Name Description Value Unit Range Abnormal Flag Note LastModifiedBy Organization Detail LastModifiedTime Result Notes None recorded. 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 Procedure Notes None recorded. Medical Equipment None Reported. Allergies Allergen ID Allergen Name Allergen Category Reaction Reaction Severity Criticality Documentation Date Start Date Code Code System Note Provider Name and Address Organization Details Recorded Time 95040 iodine medicatio n Not available Not available Not available 08/28/2024 5933 RxNorm Betzaida resendiz, [facility] 01:11:52 Medications Name Sig Start Date Stop Date [...] rate Body temperature Respiratory rate Oxygen saturation Body weight Body mass index (BMI) Body height Systolic And Diastolic Provider Name and Address Organization Details Last Updated DateTime 4 59 /min 98.2 [degF] 20 /min 95 % 099685. 31 g 32.1 kg/m2 182.88 cm 115/55 mm[Hg] Aracelis Ocampo, [address] [place], [address], [facility] 4 05:10:04 Date Recorded Body height Heart rate Respiratory rate Oxygen saturation Body mass index (BMI) Body weight Body temperature Systolic And Diastolic Provider Name and Address Organization Details Last Updated DateTime 4 182.88 cm 69 /min 17 /min 95 % 32.4 kg/m2 857154. 29 g 98.2 [degF] 101/50 mm[Hg] [place] [address] [place], [address], [facility] 4 13:01:41 Date Recorded Body height Heart rate Body temperature Respiratory rate Oxygen saturation Body mass index (BMI) Body weight Systolic And Diastolic Provider Name and Address Organization Details Last Updated DateTime 4 182.88 cm 105 /min 98.5 [degF] 18 /min 95 % 32.7 kg/m2 884771. 76 g 92/55 mm[Hg] [place] [address] [place], [address], [facility] 4 14:40:12 Date Recorded Body height Heart rate Body temperature Respiratory rate Oxygen saturation Body mass index (BMI) Body weight Systolic And Diastolic Provider Name and Address Organization Details Last Updated DateTime 4 182.88 cm 57 /min 97.8 [degF] 18 /min 95 % 33.2 kg/m2 931152. 13 g 140/71 mm[Hg] [place] [address] [place], [address], [place] [facility] 10:22:37 Social History Question Answer Notes LastModified by Organizat ion Details LastModified Time Tobacco Smoking Status Former Smoker Arcadio resendiz, [place] [facility] 08/29/2024 00:44:25 What Is Your Code Status? Full Code Information not available 08/29/2024 How Much Tobacco Do You Smoke? 0.25 PPD Information not available 08/29/2024 How Many Years Have You Smoked Tobacco? 5 Information not available 08/29/2024 Sex: Unknown Functional Status Question Answer Note LastModified by Organizat ion Details LastModified Time Do you use any illicit or recreational drugs? No Information not available 08/29/2024 What is your level of alcohol consumption? None Information not available 08/29/2024 Mental Status None recorded. Family History Relationship Description Onset Age of this Age Resolved Age Notes LastModified by Organization Details LastModified Time Mother Hypertensive disorder Not available 2023 00:47:39 Mother Congestive heart failure Not available 2023 00:48:02 Mother Heart disease Not available 2023 00:48:09 Father Malignant neoplasm of pancreas Not available 2023 00:48:16 Daughter No current problems or disability Not available 08/29 00:48:26 Unspecified Relation Malignant neoplasm of colon Not available 2023 00:48:42 Unspecified Relation Hypercholest erolemia Not available 2023 00:48:48 Medical History Condition Response Atrial Fibrillation Y Hyperthyroidism Y Hyperlipidemia Y Rheumatoid Arthritis Y Hypertension Y Benign Prostatic Hyperplasia (BPH) Y Past Encounters Encounter ID Performer Location Encounter Start Date Encounter Closed Date Diagnosis/Indication Diagnosis SNOMED-CT Code Diagnosis ICD10 Code Diagnosis IMO Codes Diagnosis Note [id number] Aracelis Ocampo DO [address] [address] [place] [address] 08/28/2024 00:09:11 09/07/2024 09:12:31 Pain in left foot [id number] 87327 M79.672 subsequent to a ground level fall at his [facility] a few weeks agoinitial imaging done at was concerning for fracture. He was sent to [facility] with OCL splint placed and made NWB to the LLEOrtho saw him in the office 08/21 with repeat xrays that showed only a dorsal avulsion fracture of the navicular bone which was thought to likely be old.He is currently WBAT to the E with activities as tolerated. He is to f/u with ortho prnTherapi es have been initiatedc ontinue prn tylenol and prn tizanidine for pain/spasm s Atrial fibrillation 4943 6004 I48.91 rate is controlled with metoprolol continue eliquis for VTE prophylaxi s Essential hypertension 55860627 I10 continue metoprolol , lisinopril and lasixtrend pressures and adjust meds as clinically indicated Hyperlipidemia 10136015 E78.5 stable - continue statin therapy Constipation 57619263 K5 9.00 chronic - continue usual routine meds of miralax daily and senna s BIDadditio nal meds available per standing orders Major depr essive disorder 300710638 F32.9 per patient report, stable - continue escitalopr am Benign pro static hyperplasia without outflow obstruction 961319444 N40.0 no reported urinary difficulti es at this time - continue high dose flomax Weakness o f left lower limb 9531867222 43762 M62.81 ongoing over the recent months thought to be related to lumbar radiculopa thy but worsening since his most recent fall in ntinue therapieso rthopedics recommende d using a drop lock hinged knee brace but the patient has not chosen to useconside r dedicated lumbar spine imaging (MRI) as outpatient Edema of l ower extremity 987865326 R60.0 chronic with left greater than rightconti nue compressio n dressings daily/leg elevation when ablecontin ue low dose lasixmonit or clinically Fracture o f thoracic spine 603553172 S22.018D related to a fall back in Aprilhe was admitted to [place] at that time, followed by neurosurge ry, wore a TLSO brace for a time with last noted follow-up in June with recommenda tions to discontinu e TLSO brace and f/u prncontinu e therapies, supportive measures Chronic ki dney disease stage 3 399462106 N18.30 creatinine was 1.9 in January of 2023, during his recent hospitaliz ation at [place], creatinine ranged from 1.42-1.99a void nephrotoxi ns and continue to trend Abdominal aortic aneurysm 641604301 I71.40 he is s/p endovascul ar repair in 2015 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 Initial imaging done at was concerning for fracture. He was sent to [facility] with OCL splint placed and made [...] s. Weakness o f left lower limb 8958216130 77558 M62.81 Ongoing over the recent months thought [...] Eliquis for VTE prophylaxi s. Essential hypertension 35069301 I10 Stable. Continue Metoprolol , Lisinopril , and Lasix.Cont inue to trend blood pressures, monitor lytes and renal function, and adjust meds as clinically indicated. Hyperlipidemia 42591140 E78.5 Stable. Continue statin. Constipation 63498879 K5 9.00 Chronic. Continue usual routine meds of Miralax daily and senna s BID.Additi onal meds available per standing orders. Major depr essive disorder 180886556 F32.9 Per patient report. Stable - Continue Escitalopr am. Benign pro static hyperplasia without outflow obstruction 929828712 N40.0 No reported urinary difficulti es at this time. Continue high dose Flomax. Edema of l ower extremity 904999033 R60.0 Chronic with left greater than right.Cont inue compressio n dressings daily/leg elevation when able.Cristian nue low dose Lasix.Perla tor clinically . Fracture o f thoracic spine 666680014 S22.018D Related to a fall back in April 2024. Was admitted to [place] at that time, followed by neurosurge ry, wore a TLSO brace for a time, with last noted follow-up in June with recommenda tions to discontinu e TLSO brace and f/u prn.Contin ue therapies and supportive measures. Chronic ki dney disease stage 3 426354794 N18.30 Cr was 1.9 in January of 2023. During his recent hospitaliz ation at [place], creatinine ranged from 1.42-1.99. Avoid nephrotoxi ns and continue to trend. 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 Recent CT scan showed stable postoperat betsy changes of the graft. Continue supportive measures. Recurrent falls 29458081 [address]29[address]Cont inue therapies. Recent labs to include TSH, Vitamin D, and B12 WNL.Consid er further lumbar spine imaging as outpatient although patient reluctant for aggressive interventi ons related to possible spine pathology. History of vertebral fracture 063415788 Z87.81 Related to a fall back in April 2024 resulting in T10-T11 fractures/ ligamentou s injury. Was admitted to [place] at that time, followed by neurosurge ry, wore a TLSO brace for a time, with last noted follow-up in June with recommenda tions to discontinu e TLSO brace and f/u prn.Contin ue therapies and supportive measures. [id number] Aracelis Albertinanannette, [address] [place] [address] 09/04/2024 10:22:06 09/07/2024 13:39:33 Pain in left foot [id number] 23892 M79.672 Subsequent to a ground level fall at his [facility] a few weeks ago. Initial imaging done at was concerning for fracture. He was sent to [facility] with OCL splint placed and made [...] s. Weakness o f left lower limb 7552802640 88116 M62.81 Ongoing over the recent months thought to be related to lumbar radiculopa thy but worsening since his most recent fall in July.C ontinue therapies. Orthopedic s recommende d using a drop lock hinged knee brace, but the patient has declined.C onsider dedicated lumbar spine imaging (MRI) as outpatient . Recurrent falls 17144748 [address]29[address]Cont inue therapies. Recent labs to include TSH, Vitamin D, and B12 WNL.Consid er further lumbar spine imaging as outpatient although patient reluctant for aggressive interventi ons related to possible spine pathology. Essential hypertension 25999837 I10 Stable. Continue Metoprolol , Lisinopril , and Lasix.Cont inue to trend blood pressures, monitor lytes and renal function, and adjust meds as clinically indicated. Atrial fibrillation 4943 6004 I48.91 Rate is controlled with Metoprolol .Continue Eliquis for VTE prophylaxi s. Chronic ki dney disease stage 3 922244490 N18.30 Cr was 1.9 in January of 2023. During his recent hospitaliz ation at [place], creatinine ranged from 1.42-1.99. Avoid nephrotoxi ns and continue to trend. Hyperlipidemia 86751382 E78.5 Stable. Continue statin. Edema of l ower extremity 477612846 R60.0 Chronic with left greater than right.Cont inue compressio n dressings daily/leg elevation when able.Cristian nue low dose Lasix.Perla tor clinically . Benign pro static hyperplasia without outflow obstruction 890331611 N40.0 No reported urinary difficulti es at this time. Continue high dose Flomax. Major depr essive disorder 524987485 F32.9 Per patient report. Stable - Continue Escitalopr am. Constipation 91978046 K5 9.00 Chronic. Continue usual routine meds of Miralax daily and senna s BID.Additi onal meds available per standing orders. Fracture o f thoracic spine 070619798 S22.018D Related to a fall back in April 2024. Was admitted to [place] at that time, followed by neurosurge ry, wore a TLSO brace for a time, with last noted follow-up in June with recommenda tions to discontinu e TLSO brace and f/u prn.Contin ue therapies and supportive measures. History of vertebral fracture 474627827 Z87.81 Related to a fall back in April 2024 resulting in T10-T11 fractures/ ligamentou s injury. Was admitted to [place] at that time, followed by neurosurge ry, wore a TLSO brace for a time, with last noted follow-up in June with recommenda tions to discontinu e TLSO brace and f/u prn.Contin ue therapies and supportive measures. 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 Recent CT scan showed stable postoperat betsy changes of the graft. Continue supportive measures. Herpes labialis 0595436 B00.1 Add Abreva, okay to keep at bedside and self-admin ister. [id number] Aracelis Ocampo [address] [place] [address] 09/06/2024 09:24:16 09/14/2024 11:44:13 Herpes labialis 8567295 B00.1 Nearly resolved. Continue Abreva until resolution . Pain in left foot 566601 9573 59300 M79.672 Subsequent to a ground level fall at his [facility] a few weeks ago. Initial imaging done at was concerning for fracture. He was sent to [facility] with OCL splint placed and made NWB to the LLE. Ortho saw him in the office 08/21/24 with repeat xrays that showed only a dorsal avulsion fracture of the navicular bone, which was thought to likely be old.WBAT to LLE. He is to f/u with ortho PRN.Contin ue PRN Tylenol and PRN Tizanidine for pain/spasm s. Weakness o f left lower limb 2791435702 07128 M62.81 Ongoing over the recent months thought to be related to lumbar radiculopa thy but worsening since his most recent fall in July.O rthopedics recommende d using a drop lock hinged knee brace, but the patient has declined.C onsider dedicated lumbar spine imaging (MRI) as outpatient . Recurrent falls 75139546 [address]29[address]Rece nt labs to include TSH, Vitamin D, and B12 WNL.Consid er further lumbar spine imaging as outpatient although patient reluctant for aggressive interventi ons related to possible spine pathology. Essential hypertension 38678221 I10 Stable. Continue Metoprolol , Lisinopril , and Lasix. Atrial fibrillation 4943 6004 I48.91 Rate is controlled with Metoprolol .Continue Eliquis for VTE prophylaxi s. Chronic ki dney disease stage 3 871515692 N18.30 Cr was 1.9 in January of 2023. During his recent hospitaliz ation at [place], creatinine ranged from 1.42-1.99. Avoid nephrotoxi ns and continue to trend. Hyperlipidemia 68202736 E78.5 Stable. Continue statin. Edema of l ower extremity 460737590 R60.0 Chronic with left greater than right.Cont inue compressio n dressings daily/leg elevation at rest.Cristian nue low dose Lasix.Perla tor clinically . Benign pro static hyperplasia without outflow obstruction 327011012 N40.0 No reported urinary difficulti es at this time. Continue high dose Flomax. Major depr essive disorder 503885444 F32.9 Per patient report. Stable. Continue Escitalopr am. Constipation 81567983 K5 9.00 Chronic but stable. Continue usual routine meds of Miralax daily and senna s BID. History of vertebral fracture 231077128 Z87.81 Related to a fall back in April 2024 resulting in T10-T11 fractures/ ligamentou s injury. Was admitted to [place] at that time, followed by neurosurge ry, wore a TLSO brace for a time, with last noted follow-up in June with recommenda tions to discontinu e TLSO brace and f/u prn.Contin ue therapies and supportive measures. 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 Recent CT scan showed stable postoperat betsy changes of the graft. Continue supportive measures. Health Concerns Section Related Observation LastModified by Organization Detai ls LastModified Time None Recorded Concern Status LastModified by Organization Details LastModified Time None Recorded Advance Directives Directive None Recorded Payers Insurance Date Sequence Insurance Name Policy Number Policy [place] Covered Member ID [place] Member ID Guarantor Name 08/28/2024 1 [facility] (MEDICARE REPLACEMENT/A DVANTAGE - PPO) [id number] Tom Matute [id number] Tom Matute 09/13/2024 1 [facility] (MEDICARE REPLACEMENT/A DVANTAGE - HMO) [id number] Tom Matute [id number] Tom Matute Notes Date Note Type Note Provider Name and Address Organization Details Recorded Time 08/27/2024 text/html 89 Y/O white male with a history of afib, CKD, HTN, AAA s/p EVAR and falls admitted to [facility] for post acute rehab following a fall at his assisted living apartment which caused left leg pain and weakness. The patient reports he was walking in the hallway outside of his [facility] apartment to get some exercise using his wheeled walker when he lost balance landing onto his left side in mid-July. He reports his left foot landed beneath him as he went down. He had mild discomfort but was able to bear weight following the fall. Xrays were done at [facility] several days after the fall which were concerning for a possible fracture of the foot. So, he was sent to [facility] 08/10/2024 for further evaluation. He was placed in a posterior OCL split, made non weight bearing and scheduled to see orthopedics 08/21. He was seen by PA, Caesar Villegas, with [facility] who did repeat xrays 08/21 and did not feel that the patient had an acute fracture. OCL was removed, WBAT to LLE with activities as tolerated and f/u prn recommended. The patient has now been transferred to SNF for therapy and strengthening prior to return to his [facility] apartment. Of note, the patient had a prolonged hospitalization at [place] 04/22-05/13/2024 following a fall. He was diagnosed and treated for rhabdomyolysis, a retroperitoneal hematoma requiring blood transfusion, T10-T11 fractures/ligamentous injury, UTI (enterococcus faecalis) and had a negative syncopal work-up. He transferred to for skilled therapy with ultimate transition to the [facility] unit here in mid-May. Prior to this fall, he had been living independently in a condo/[place]adal[place] alone in [place]. He was IND with mobility and ADLs up until his fall in April. He reports he has had significant swelling to his LE since the fall (left > right) as well as left leg weakness which has worsening since falling in July. He wore a TLSO brace until mid-June related to his recent thoracic spine injury. Since moving to [place], he has been MOD IND for mobility [...] nursing concerns. PCP Trevin since moving to [place] in May - prior to living at , he was followed by Dr. Adela Zurita status is DNRPOA [place] [address] [place], [address], [facility] 08/30/2024 07:14:01 08/31/2024 text/html F/U fall with left leg pain/injury, weakness, and chronic medical conditions.---08/27/24 The patient is a good historian. He is sitting up in his bedside chair today. He currently denies pain to the LLE. It is the weakness that persists to the LE that seems to frustrate him. He is, otherwise, feeling well without new complaints or concerns. No nursing concerns.---08/31/24 kira is seated in his recliner in [...] notes on 08/30: Conducted gait training with [facility] with cues for lateral sway and step continuity. [place] [address] [facility], [place], [address], [facility] 08/31/2024 13:22:26 09/04/2024 text/html F/U fall with left leg pain/injury, weakness, and chronic medical conditions.---08/27/24 The patient is a good historian. He is sitting up in his bedside chair today. He currently denies pain to the LLE. It is the weakness that persists to the LE that seems to frustrate him. He is, otherwise, feeling well without new complaints or concerns. No nursing concerns.---08/31/24 kira is seated in his recliner in [...] notes on 08/30: Conducted gait training with [facility] with cues for lateral sway and step continuity. No LOB this date---09/04/24Tom is seated in his recliner, doing well, [...] lbs. VSS. Staff [place] [address] [place], [address], [place] [facility] 09/04/2024 14:55:22 09/06/2024 text/html 89 Y/O white male with a history of afib, CKD, HTN, AAA s/p EVAR and falls admitted to [facility] for post acute rehab following a fall at his assisted living apartment which caused left leg pain and weakness. The patient reports he was walking in the hallway outside of his [facility] apartment to get some exercise using his wheeled walker when he lost balance landing onto his left side in mid-July. He reports his left foot landed beneath him as he went down. He had mild discomfort but was able to bear weight following the fall. Xrays were done at [facility] several days after the fall which were concerning for a possible fracture of the foot. So, he was sent to [facility] 08/10/2024 for further evaluation. He was placed in a posterior OCL split, made non weight bearing and scheduled to see orthopedics 08/21. He was seen by PA, Caesar Villegas, with [facility] who did repeat xrays 08/21 and did not feel that the patient had an acute fracture. OCL was removed, WBAT to LLE with activities as tolerated and f/u prn recommended. The patient has now been transferred to SNF for therapy and strengthening prior to return to his [facility] apartment. Of note, the patient had a prolonged hospitalization at [facility] 04/22-05/13/2024 following a fall. He was diagnosed and treated for rhabdomyolysis, a retroperitoneal hematoma requiring blood transfusion, T10-T11 fractures/ligamentous injury, UTI (enterococcus faecalis) and had a negative syncopal work-up. He transferred to for skilled therapy with ultimate transition to the [facility] unit here in mid-May. Prior to this fall, he had been living independently in a condo/[place]adalupe alone in [place]. He was IND with mobility and ADLs up until his fall in April. He reports he has had significant swelling to his LE since the fall (left > right) as well as left leg weakness which has worsening since falling in July. He wore a TLSO brace until mid-June related to his recent thoracic spine injury. Since moving to [place], he has been MOD IND for mobility with WW and mostly IND with ADLs. PCP Motwani since moving to [place] in May - prior to living at [...] without new complaints or concerns. No nursing concerns.---08/31/24 kira is seated in his recliner in [...] sway and step continuity. No LOB this date---09/04/24Tom is seated in his recliner, doing well, [...] looking forward to discharging back to his [facility] apartment on 09/08. He notes [...] and left heel strike. Alcira Aguayo, ION [address] [facility], [place], [address], [facility] [place] [facility] 09/06/2024 14:45:19
--- OUTSIDE RECORDS SUMMARY | 2025-08-15 12:39 | XMS_ITS | Encounter Summary ---
Author Organization [facility] Facility Care Team Providers Care Manager Performance Name Role Phone Aleks Treviño MD Primary Care Provider [phone] Abdi Page MD Unavailable [phone] Mateo Zhong MD Primary Care Provider [phone] Encounter Details Date Type Department Care Team (Latest Contact Info) Description 04/07/2016 Orders Only [facility] CLINCONV ProviderChikis MD [address] [place] [id number] Social History Tobacco Use Types Packs/Day Years Used Date Smoking Tobacco: Never Assessed Sex and Gender Information Value Date Recorded Sex Assigned at Not on file Legal Sex Male 3:41 AM [employer] Gender Identity Not on file Sexual Orientation [...] documented as of this encounter Care Teams Manager Performance Relationship Specialty Start Date End Date Aleks Treviño MD PCP - General 02/21/15 12/05/24 Mateo Zhong MD [address] [facility] [address] [place] [address] PCP - General Family Medicine 12/06/24 Abdi Page MD [address] [facility] [address] [facility] [address] [place] [address] Surgeon Vascular Surgery 01/11/23 documented as of this encounter
[2025-08-15 12:55] VITALS: BP 150/64; PULSE 60; RESP 20; O2SAT 98
--- NOTE | 2025-08-15 13:34 | ED.SKABFB ---
HPI - Skin/Abscess/Foreign Bdy General Chief complaint: Skin/Abscess/Foreign Body Stated complaint: right sided lump on abdomen Time Seen by Provider: 08/15/25 12:05 History of Present Illness HPI narrative: Patient presenting here after he noticed a lump on his right side of his abdomen. It does not hurt, it does not cause any issues, he has no nausea or vomiting. Related Data Home Medications ?Medication ?Instructions ?Recorded ?Confirmed ?Last Taken ?Type acetaminophen 500 mg capsule 1,000 mg PO Q6H PRN 12/18/24 07/17/25 Unknown History apixaban 2.5 mg tablet (Eliquis) 2.5 mg PO BID 12/18/24 07/17/25 Unknown History buspirone 15 mg tablet 15 mg PO BID 12/18/24 07/17/25 Unknown History carbamide peroxide 6.5 % ear drops 5 drp EACH EAR DAILY 12/18/24 07/17/25 Unknown History (Debrox) colloidal oatmeal 1 % topical applic topical 12/18/24 07/17/25 Unknown History cream (Eucerin Baby Eczema Relief) cyanocobalamin (vitamin B-12) 1,000 mcg PO DAILY 12/18/24 07/17/25 Unknown History 1,000 mcg tablet escitalopram oxalate 10 mg tablet 10 mg PO DAILY 12/18/24 07/17/25 Unknown History furosemide 20 mg tablet 20 mg PO DAILY 12/18/24 07/17/25 Unknown History metoprolol tartrate 25 mg tablet mg PO BID 12/18/24 07/17/25 Unknown History polyethylene glycol 3350 17 17 g PO DAILY 12/18/24 07/17/25 Unknown History gram/dose oral powder sennosides 8.6 mg-docusate sodium 1 tab-cap PO BID 12/18/24 07/17/25 Unknown History 50 mg tablet (Stimulant Laxative Plus) tamsulosin 0.4 mg capsule 0.8 mg PO DAILY 12/18/24 07/17/25 Unknown History tizanidine 2 mg capsule See Rx Instructions PO TID 12/18/24 07/17/25 Unknown History Allergies Allergy/AdvReac Type Severity Reaction Status Date / Time iodine Allergy Mild Rash Verified 08/15/25 11:28 Review of Systems Review of Systems: All systems reviewed & are unremarkable except as noted in HPI and below PMFSH Past Medical History Medical History Chronic kidney disease, stage 3a Hypertensive chronic kidney disease Hyperparathyroidism, secondary renal Paroxysmal atrial fibrillation BPH (benign prostatic hyperplasia) Breast cancer screening Arthritis of right knee Arthritis of right hip History of chicken pox History of mumps Essential (primary) hypertension Hyperlipidemia, unspecified Surgical History Surgical History History of AAA (abdominal aortic aneurysm) repair History of cataract extraction History of right hip replacement 2020 S/P TURP History of left hip replacement (~2008) H/O endovascular stent graft for abdominal aortic aneurysm Family History Family History Mother , age 59 Hypertension, Onset Age: 59 Heart disease Congestive heart failure Father , age 41 Pancreatic cancer Daughter No chronic problems Other Carcinoma of colon Family history of hypercholesterolemia Social History Social History Social History: The patient is a and lives home alone. He has 3 children. The patient is retired from [employer]. The patient smoked from [id number] while he was in the . The patient does not use any alcohol marijuana or illicit drugs. 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 Code status full code Smoking packs per day: 0.25 Smoking cigarettes per day: 5.0 Years smoked: 5 Smoking pack-years: 1.25 Smoking status: Former smoker Alcohol intake: never Substance use: never Substance use type: does not use Lack of Transportation: No Lack of Food: Never True Current Housing: Decline to Answer Concerned About Future Housing: Decline to Answer Difficulty Paying Gas/Electric Bills: Decline to Answer Difficulty Paying for Meds: Decline to Answer Currently Unemployed: Decline to Answer Education: Decline to Answer Difficulty w/ Childcare or Family Care: Decline to Answer Living arrangements: alone Additional living arrangements comments: [place] Occupation/Education: retired Gender identity (if verbalized by the patient): Male Spiritual care concerns: No Exam Narrative: EXAMINATION OF ORGAN SYSTEMS/BODY AREAS: Constitutional: Vital signs per nursing GENERAL:[No acute distress, non-toxic appearing.] HEAD: Normal with no signs of head trauma. EYES: EOMI, conjunctiva normal ENT: Hearing grossly intact LUNGS: Nonlabored breathing. HEART: [Regular rate and rhythm] ABD: [Soft], [nontender to palpation]. No palpable hernia, no palpable lipoma or any areas of tenderness or masses EXT: Normal range of motion SKIN: Extensive lesions that appear to be seborrheic keratosis on the back NEURO: [Alert and oriented x 3. No gross focal sensory or strength deficits.] PSYCH: Normal affect Course Vital Signs Vital signs: Vital Signs Temperature 97.0 F L 08/15/25 09:47 Pulse Rate 57 L 08/15/25 09:47 Respiratory Rate 20 08/15/25 09:47 Blood Pressure 155/69 H 08/15/25 09:47 Pulse Oximetry 99 08/15/25 09:47 Oxygen Delivery Room Air 08/15/25 09:47 Temperature 97.0 F L 08/15/25 09:47 Pulse Rate 60 08/15/25 12:55 Respiratory Rate 20 08/15/25 12:55 Blood Pressure 150/64 H 08/15/25 12:55 Pulse Oximetry 98 08/15/25 12:55 Oxygen Delivery Room Air 08/15/25 09:47 MDM - Skin/Abscess/Foreign Bdy MDM Narrative Medical decision making narrative: Patient presents here because he had noticed what felt like maybe a lump on his right flank. Nonpainful, well-appearing here, on my extensive exam I do not notice any lumps, palpable hernia or anything else at all. There are no skin findings other than some seborrheic keratoses on the back. I did ask the patient to find it for me himself and he was unable to find it, at this point in shared decision-making, they would like to go home and I feel this is quite reasonable with follow-up to PCP return if needed. Discharge Plan Discharge Clinical Impression: Normal abdominal exam Patient Disposition: Home Condition: Stable Instructions: Normal Exam (ED) Additional Instructions: Please follow-up with your primary care doctor. You can always return to the emergency room for any further issues. Patient Language: Malay Prescriptions: No Action metoprolol tartrate 25 mg tablet PO BID furosemide 20 mg tablet 20 mg PO DAILY polyethylene glycol 3350 17 gram/dose powder 17 g PO DAILY sennosides-docusate sodium [Stimulant Laxative Plus] 8.6-50 mg tablet 1 tab-cap PO BID cyanocobalamin (vitamin B-12) 1,000 mcg tablet 1,000 mcg PO DAILY Eliquis 2.5 mg tablet 2.5 mg PO BID tamsulosin 0.4 mg capsule 0.8 mg PO DAILY acetaminophen 500 mg capsule 1,000 mg PO Q6H PRN Eucerin Baby Eczema Relief 1 % cream topical escitalopram oxalate 10 mg tablet 10 mg PO DAILY tizanidine 2 mg capsule See Rx Instructions PO TID Rx Instructions: take 1-2 tablets as needed for hour of sleep starting buspirone 15 mg tablet 15 mg PO BID Debrox 6.5 % drops 5 drp EACH EAR DAILY atorvastatin 10 mg tablet See Rx Instructions .ROUTE .COMPLEX Qty: 100 1RF Dose Instruction: TAKE 1 TABLET BY MOUTH DAILY Rx Instructions: TAKE 1 TABLET BY MOUTH HS lisinopril 10 mg tablet 10 mg PO .COMPLEX Qty: 45 8RF Rx Instructions: 10 mg orally; take half in am and whole in pm Follow-up/Referrals: Mateo Zhong MD [Primary Care Provider, Family Practice]
== END 2025-08-15 12:55 | disposition home or self-care (01) ==
PROVIDERS: Emergency Provider Emergency Medicine; PCP Family Medicine
DX: R22.2 Localized swelling, mass and lump, trunk (principal); L91.8 Other hypertrophic disorders of the skin; D22.5 Melanocytic nevi of trunk; I12.9 Hypertensive chronic kidney disease with stage 1 through stage 4 chronic kidney disease, or unspecified chronic kidney disease; N18.31 Chronic kidney disease, stage 3a; N25.81 Secondary hyperparathyroidism of renal origin; I48.0 Paroxysmal atrial fibrillation; E78.5 Hyperlipidemia, unspecified; N40.0 Benign prostatic hyperplasia without lower urinary tract symptoms; M17.11 Unilateral primary osteoarthritis, right knee; M16.11 Unilateral primary osteoarthritis, right hip; Z96.643 Presence of artificial hip joint, bilateral; Z87.891 Personal history of nicotine dependence; Z98.49 Cataract extraction status, unspecified eye
CPT/HCPCS: 99281